=== PATIENT | female | born 1945 | race Caucasian/White ===

== ENCOUNTER → 2016-11-14 | Day surgery (SDC) | payer BC ==
[2016-11-08 12:44] VITALS: Ht 165.1 cm; Wt 79.5 kg
[~2016-11-14] VITALS: Ht 165.1 cm; Wt 79.5 kg
[~2016-11-14] MED LIST: ALBU18002 INH; ALPR1TAB3 PO; ATROPINE SULFATE 0.1 MG/ML 5ML SYR IV PRN; BUPR-79 PO; EFFSR/75 PO; EFFSR150 PO; ESTR0.5T3 PO; EpHEDrine SULFATE INJ 50 MG/ML AMP IV PRN; FLUT1SPR12 NAE; IMP/50 PO; LEVO50TA6 PO; LIDOCAINE HCL 2% 2 ML VIAL (20MG/ML) ONE; LZL/125 PO; MISCCAP80 PO; MOME220A INH; MULT-506 PO; PRLSR20 PO; PROPOFOL IV EMULSION 10 MG/ML 20 ML VIAL IV ONE; RANI300T2 PO; SODIUM CHLORIDE 0.9% 500ML 500 ML IV ONE
--- NOTE | 2016-11-14 11:58 | Endo History and Physical ---
History & Physical Date of Service: Nov 14, 2016. Chief Complaint: Tubular adenoma, family hx colon ca (mother) Referring Physician: Balta Drew History of Present Illness 71 yo CF who presents for colonoscopy secondary to history of colon polyps and family history of colon cancer. Past Medical History Endocrine Disorder, Gastrointestinal Disorder, Anxiety, High Cholesterol, Heart Disease, Hypertension, COPD, Thyroid Disease, Depression Past Surgical History Hx Cardiac Surgery: No Hx Internal Defibrillator: No Hx Pacemaker: No Hx Abdominal Surgery: Yes (TUBAL LIGATION, IAN, D&C, JARRED, OVARIAN CYST REMOVED) Hx of Implantable Prosthesis: No Hx Post-Op Nausea and Vomiting: No Hx Cancer Surgery: No Hx Thoracic Surgery: No Hx Orthopedic: No Hx Urinary Tract Surgery: No Family History Colon CA Social History Smoking Status: Former Smoker Hx Substance Use: No Hx Alcohol Use: No Allergies Coded Allergies: Amoxicillin (Verified Adverse Reaction, Mild, YEAST INFECTIONS, 11/08/16) Levofloxacin (Verified Adverse Reaction, Mild, NERVOUS, 11/08/16) Current Medications Reported Home Medications Medications Dose Route/Sig Max Daily Dose Days Date Category Probiotic (Probiotic Product) 1 Cap Cap 1 Cap PO QAM 11/08/16 Reported Proair Respiclick (Albuterol Sulfate) 108 Mcg/Act Aer 2 Puff INH QID PRN 11/08/16 Reported Asmanex Twisthaler 120 Me (Mometasone Furoate (Inhalation) 220 Mcg/Inh Aer 1 Puff INH BID 11/08/16 Reported Flonase Allergy Relief Ch (Fluticasone Propionate (Nasal)) 50 Mcg/Act Spr 2 [place] SANTY DAILY PRN 11/08/16 Reported Multivitamin (Multivitamins) Tab 1 Tab PO QAM 11/08/16 Reported Wellbutrin Sr (Bupropion HCl) 150 Mg Ertab 150 Mg PO QAM 11/08/16 Reported Prilosec (Omeprazole) 20 Mg Capcr 20 Mg PO QAM 11/08/16 Reported Zantac (Ranitidine HCl) 300 Mg Tab 300 Mg PO HS 11/08/16 Reported Xanax (Alprazolam) 1 Mg Tab 1-2 Mg PO BID PRN 11/08/16 Reported Tofranil (Imipramine HCl) 50 Mg Tab 3 Tab PO HS 11/08/16 Reported Lozol (Indapamide) 1.25 Mg Tab 1.25 Mg PO QAM 11/08/16 Reported Levothyroxine Sodium 50 Mcg Tab 1 Tab PO QAM 90 11/08/16 Reported Estradiol 0.5 Mg Tab 1 Tab PO HS 30 11/08/16 Reported Venlafaxine HCl ER (Venlafaxine HCl) 75 Mg Capcr 75 Mg PO HS 12/17/13 Reported Effexor Extended Rel * (Venlafaxine HCl) 150 Mg Capcr 150 Mg PO QAM 08/17/11 Reported Vital Signs Weight (Kilograms): 79.55 Height (Feet): 5 Height (Inches): 5 Date Time Temp Pulse Resp B/P (MAP) Pulse Ox O2 Delivery O2 Flow Rate FiO2 11/14/16 10:55 36.4 73 18 159/65 (96) 96 Room Air Physical Exam General Appearance: WD/WN, no apparent distress Respiratory/Chest: Auscultation: breath sounds normal Cardiovascular: Heart Auscultation: RRR Abdomen: Bowel Sounds: normal Inspection & Palpation: soft, non-distended, no tenderness, guarding & rebound Assessment and Plan Assessment: 71 yo CF who presents for colonoscopy secondary to history of colon polyps and family history of colon cancer. Plan: Proceed with colonoscopy.
--- NOTE | 2016-11-14 12:44 | Discharge Instructions ---
Endoscopy Patient Instructions Date / Procedure(s) Performed Nov 14, 2016. Colonoscopy Allergy Information Coded Allergies: Amoxicillin (Verified Adverse Reaction, Mild, YEAST INFECTIONS, 11/08/16) Levofloxacin (Verified Adverse Reaction, Mild, NERVOUS, 11/08/16) Discharge Date / Findings Nov 14, 2016. Colon polyps Internal hemorrhoids Medication Instructions OK to resume all medications today as prescribed Medications Dose Route/Sig Max Daily Dose Days Date Category Probiotic (Probiotic Product) 1 Cap Cap 1 Cap PO QAM 11/08/16 Reported Proair Respiclick (Albuterol Sulfate) 108 Mcg/Act Aer 2 Puff INH QID PRN 11/08/16 Reported Asmanex Twisthaler 120 Me (Mometasone Furoate (Inhalation) 220 Mcg/Inh Aer 1 Puff INH BID 11/08/16 Reported Flonase Allergy Relief Ch (Fluticasone Propionate (Nasal)) 50 Mcg/Act Spr 2 [place] SANTY DAILY PRN 11/08/16 Reported Multivitamin (Multivitamins) Tab 1 Tab PO QAM 11/08/16 Reported Wellbutrin Sr (Bupropion HCl) 150 Mg Ertab 150 Mg PO QAM 11/08/16 Reported Prilosec (Omeprazole) 20 Mg Capcr 20 Mg PO QAM 11/08/16 Reported Zantac (Ranitidine HCl) 300 Mg Tab 300 Mg PO HS 11/08/16 Reported Xanax (Alprazolam) 1 Mg Tab 1-2 Mg PO BID PRN 11/08/16 Reported Tofranil (Imipramine HCl) 50 Mg Tab 3 Tab PO HS 11/08/16 Reported Lozol (Indapamide) 1.25 Mg Tab 1.25 Mg PO QAM 11/08/16 Reported Levothyroxine Sodium 50 Mcg Tab 1 Tab PO QAM 90 11/08/16 Reported Estradiol 0.5 Mg Tab 1 Tab PO HS 30 11/08/16 Reported Venlafaxine HCl ER (Venlafaxine HCl) 75 Mg Capcr 75 Mg PO HS 12/17/13 Reported Effexor Extended Rel * (Venlafaxine HCl) 150 Mg Capcr 150 Mg PO QAM 08/17/11 Reported Provider Instructions Activity Restrictions - No exercising or heavy lifting for 24 hours. - Do not drink alcohol the day of the procedure. - Do not drive a car or operate machinery until the day after the procedure. - Do not make any important decisions or sign important papers in 24 hours after the procedure. Following Day: - Return to full activity which may include returning to work/school. Diet Start your diet with liquids and light foods (jello, soup, juice, toast). Then eat your usual diet if not nauseated. Treatment For Common After Affects For mild abdominal pain, bloating, or excessive gas: - Rest - Eat lightly - Lie on right side Follow-Up Information Follow-up with Balta Drew as scheduled Anesthesia Information What You Should Know You have had a procedure that required some medicine to reduce anxiety and discomfort. This treatment is called moderate sedation. After receiving the treatment, you may be sleepy, but you will be able to breathe on your own. The effects of the treatment may last for several hours. Follow these instructions along with Activity/Diet recommendations noted above: * Do NOT do anything where dizziness or clumsiness would be dangerous. * Rest quietly at home today, then you can be up and about tomorrow. * Have a responsible person stay with you the rest of today. * You may have had an I.V. today. If so, you may take the dressing off later today. Recommendations Call your doctor if: * Trouble breathing * Continuous vomiting for more than 24 hours * Temperature above 101 degrees * Severe abdominal pain or bloating * Pain not relieved by pain medicine ordered * There is increased drainage or redness from any incision * A large amount of rectal bleeding greater than 2-3 tablespoons. (If you had a polyp/s removed or have hemorrhoids, a small amount of blood - from the rectum is to be expected.) * You have any unanswered questions or concerns. IN THE EVENT OF A SERIOUS EMERGENCY, GO TO THE NEAREST EMERGENCY ROOM Your discharge instructions were prepared by provider Jared Levy. Patient Instructions Signature Page Keira Sweeney Patient (or Guardian) Signature/Date: I have read and understand the instructions given to me by my caregivers. Caregiver/RN/Doctor Signature/Date: The above-named patient and/or guardian has received patient instructions on this date. + Original Patient Signature Page (only) stays with chart. Please make copy for patient.
--- NOTE | 2016-11-14 12:50 | GI REPORT ---
Procedure Date: 11/14/2016 12:13 PM Procedure: Colonoscopy Indications: High risk colon cancer surveillance: Personal history of colonic polyps, Family history of colon cancer in a first-degree relative Medicines: Monitored Anesthesia Care Complications: No immediate complications. Estimated Blood Loss: Estimated blood loss: none. Procedure: Pre-Anesthesia Assessment: - Prior to the procedure, a History and Physical was performed, and patient medications and allergies were reviewed. The patient's tolerance of previous anesthesia was also reviewed. The risks and benefits of the procedure and the sedation options and risks were discussed with the patient. All questions were answered, and informed consent was obtained. Prior Anticoagulants: The patient has taken no previous anticoagulant or antiplatelet agents. ASA Grade Assessment: IV - A patient with severe systemic disease that is a constant threat to life. After reviewing the risks and benefits, the patient was deemed in satisfactory condition to undergo the procedure. After I obtained informed consent, the scope was passed under direct vision. Throughout the procedure, the patient's blood pressure, pulse, and oxygen saturations were monitored continuously. The Scope was introduced through the anus and advanced to the terminal ileum. The colonoscopy was performed without difficulty. The patient tolerated the procedure well. The quality of the bowel preparation was good. The terminal ileum, ileocecal valve, appendiceal orifice, and rectum were photographed. Findings: Four sessile polyps were found in the sigmoid colon. The polyps were 4 to 6 mm in size. These polyps were removed with a hot snare. Resection and retrieval were complete. Non-bleeding internal hemorrhoids were found during retroflexion. The hemorrhoids were small. Impression: - Four 4 to 6 mm polyps in the sigmoid colon, removed with a hot snare. Resected and retrieved. - Non-bleeding internal hemorrhoids. Recommendation: - Resume previous diet. - Continue present medications. - Repeat colonoscopy for surveillance based on pathology results. - Return to primary care physician as previously scheduled. Jared Levy, 11/14/2016 12:49:34 PM This report has been signed electronically. Note Initiated On: 11/14/2016 12:13 PM I attest to the content of the Intraoperative Record and orders documented therein, exceptions below
--- NOTE | 2016-11-14 13:04 | Anesthesiology Progress Note ---
Anesthesia Post Op Note Date & Time Nov 14, 2016 at 13:04 Vital Signs Vital Signs Past 12 Hours Date Time Temp Pulse Resp B/P (MAP) Pulse Ox O2 Delivery O2 Flow Rate FiO2 11/14/16 13:02 69 18 120/51 (74) 99 Room Air 11/14/16 12:49 36.4 71 18 120/49 (72) 98 Room Air 11/14/16 10:55 36.4 73 18 159/65 (96) 96 Room Air Notes Mental Status: alert / awake / arousable, participated in evaluation Pt Amnestic to Procedure: Yes Nausea / Vomiting: adequately controlled Pain: adequately controlled Airway Patency, RR, SpO2: stable & adequate BP & HR: stable & adequate Hydration State: stable & adequate Anesthetic Complications: no major complications apparent
[2016-11-14 13:18] VITALS: BP 123/54; PULSE 71; O2SAT 99
== END | disposition home or self-care (01) ==
LOC: C.GI 10:12
PROVIDERS: ATTEND Internal Medicine
DX: Z12.11 Encounter for screening for malignant neoplasm of colon (principal); D12.5 Benign neoplasm of sigmoid colon; K64.8 Other hemorrhoids; Z86.010 Personal history of colon polyps; Z80.0 Family history of malignant neoplasm of digestive organs; I10 Essential (primary) hypertension; E78.00 Pure hypercholesterolemia, unspecified; J44.9 Chronic obstructive pulmonary disease, unspecified; E07.9 Disorder of thyroid, unspecified; E34.9 Endocrine disorder, unspecified; F41.9 Anxiety disorder, unspecified; F32.9 Major depressive disorder, single episode, unspecified; Z87.891 Personal history of nicotine dependence; Z79.899 Other long term (current) drug therapy

== ENCOUNTER → 2016-12-18 | Outpatient (CLI) | payer BC ==
[~2016-12-18] MED LIST changes: -ATROPINE SULFATE 0.1 MG/ML 5ML SYR IV PRN; -EpHEDrine SULFATE INJ 50 MG/ML AMP IV PRN; -LIDOCAINE HCL 2% 2 ML VIAL (20MG/ML) ONE; -PROPOFOL IV EMULSION 10 MG/ML 20 ML VIAL IV ONE; -SODIUM CHLORIDE 0.9% 500ML 500 ML IV ONE
[2016-12-18 16:21] LABS: THYROID STIMULATING HORMONE 1.92 uIu/ml (0.300-4.500)
== END | disposition home or self-care (01) ==
LOC: C.LAB1850 14:51
PROVIDERS: ATTEND Physician Assistant
DX: E03.9 Hypothyroidism, unspecified (principal)

== ENCOUNTER → 2017-02-07 | Outpatient (CLI) | payer BC ==
--- NOTE | 2017-02-07 14:22 | MAMMOGRAPHY REPORT ---
BILATERAL DIGITAL DIAGNOSTIC MAMMOGRAM TOMOSYNTHESIS WITH CAD AND TARGETED BILATERAL ULTRASOUND: 02/07 CLINICAL HISTORY: The patient reports diffuse pain in bilateral breasts for approximately 3-4 months, most prominent in her left inferior breast. She only notes the pain when lying down on her stomach. She denies any palpable lumps or other complaints. TECHNIQUE: Breast tomosynthesis in addition to standard 2D mammography was performed. Current study was also evaluated with a Computer Aided Detection (CAD) system. Bilateral CC and MLO 2-D and tomosy nthesis images were obtained. COMPARISON: Comparison is made to exams dated: 05/05/2013 aspiration, 04/16/2013 mammogram, 3 ultrasound, 03/27/2013 mammogram, 02/21/2012 mammogram, and 12/30/2010 mammogram - [facility]. BREAST COMPOSITION: There are scattered areas of fibroglandular density in both breasts. FINDINGS: There is an oval circumscribed 14 mm mass in the right 6:00 breast. Additionally, there i s an asymmetry in the right upper outer quadrant, which may represent normal fibroglandular tissue al though ultrasound was performed. The remainder of both breasts are stable compared to prior exams, w ithout suspicious masses, calcifications, or areas of architectural distortion noted. A biopsy marke r clip is again noted within the left upper outer quadrant. Targeted ultrasound was performed of the areas of the right breast mass and right breast asymmetry. In the right breast at 7:00, 4 cm from the nipple, there is an oval circumscribed anechoic mass with a thin internal septation, measuring 7 x 7 x 11 mm. This corresponds with the mammographic mass and is consistent with a benign cyst. No mass or other suspicious abnormality is seen in the region of t he asymmetry in the right upper outer quadrant; given the lack of sonographic abnormality, the asymme try is felt to represent normal fibroglandular tissue. Targeted ultrasound was also performed of the area of most prominent pain pointed out by the patient, involving the left lower outer quadrant. Sonographically normal tissue is seen in this region, with out evidence of a mass or other suspicious sonographic abnormality. IMPRESSION: ACR BI-RADS CATEGORY 2: BENIGN, TARGETED ULTRASOUND ACR BI-RADS CATEGORY 2: BENIGN No suspicious mammographic or sonographic abnormality to account for intermittent left breast pain. Incidental benign 11 mm cyst in the right 7:00 breast. There is no mammographic or targeted sonograp hic evidence of malignancy. Recommend clinical follow-up for breast pain, and recommend routine bila teral screening mammograms in one year. The patient has been verbally notified of the results. Approximately 10% of breast cancers are not detected with mammography. A negative mammographic report should not delay biopsy if a clinically suggestive mass is present. Liset Guillory M.D. ah/:02/07/2017 11:05:[address] [employer] [employer] [address]: Nel Erwin RT(R)(M), [facility] letter sent: Normal 1/2 BI-RADS Code: ACR BI-RADS Category 2: Benign Ultrasound BI-RADS: ACR BI-RADS Category 2: Benign
== END | disposition home or self-care (01) ==
LOC: C.MAMM 10:09
PROVIDERS: ATTEND Physician Assistant
DX: N64.4 Mastodynia (principal)

== ENCOUNTER → 2017-05-17 | Outpatient (CLI) | payer BC ==
[~2017-05-17] MED LIST changes: +VENL150T33 PO
== END | disposition home or self-care (01) ==
LOC: C.PAPS 09:15
PROVIDERS: ATTEND Obstetrics & Gynecology
DX: N89.0 Mild vaginal dysplasia (principal)

== ENCOUNTER → 2017-05-25 | Outpatient (CLI) | payer BC ==
--- NOTE | 2017-05-25 13:48 | DIAGNOSTIC IMAGING REPORT ---
HEAD WITHOUT CONTRAST (CT) CLINICAL HISTORY: 71 years-old Female presenting with R42 Dizziness, dizziness and fall [id number]. TECHNIQUE: Multidetector CT imaging of the head was performed without the use of intravenous contrast. IV contrast: None. A dose lowering technique was used consistent with the principles of ALARA (as low as reasonably achievable). COMPARISON: 12/01/2013. CT DOSE (mGy.cm): The estimated cumulative dose is 537.48 mGy.cm. FINDINGS: Lithographic Platemaker topogram: Unremarkable. Ventricles and sulci normal in size. Brain parenchyma normal in appearance with preserved landrum-white differentiation. No mass effect or midline shift. No hemorrhage or acute territorial infarct. No extra-axial fluid collection. Paranasal sinuses and mastoid air cells clear. Calvarium intact. IMPRESSION: 1. No acute intracranial abnormality. Electronically signed by: Alan Dozier M.D. 05/25/2017 1:47 PM Dictated Date/Time: 05/25/2017 1:43 PM
== END | disposition home or self-care (01) ==
LOC: C.CTS 13:28
PROVIDERS: ATTEND Internal Medicine
DX: R42 Dizziness and giddiness (principal)

== ENCOUNTER → 2017-06-15 | Outpatient (CLI) | payer BC ==
[~2017-06-15] MED LIST changes: -VENL150T33 PO
== END | disposition home or self-care (01) ==
LOC: C.PATHSPEC 17:17
PROVIDERS: ATTEND Obstetrics & Gynecology
DX: L91.8 Other hypertrophic disorders of the skin (principal); L81.9 Disorder of pigmentation, unspecified

== ENCOUNTER → 2017-07-23 | Outpatient (CLI) | payer BC ==
[2017-07-23 14:55] LABS: AST/SGOT 15 U/L (15-37); BLOOD UREA NITROGEN 12 mg/dl (7-18); CALCIUM 8.8 mg/dl (8.5-10.1); CARBON DIOXIDE 31 mmol/L (21-32); CREATININE 0.97 mg/dl (0.60-1.20); GLUCOSE 80 mg/dl (70-99); POTASSIUM 3.6 mmol/L (3.5-5.1); SODIUM 140 mmol/L (136-145)
[2017-07-23 15:06] LABS: ALT/SGPT 20 U/L (12-78); CHOLESTEROL 207 mg/dl (0-200); LDL CHOLESTEROL CALCULATED 129 mg/dl
== END | disposition home or self-care (01) ==
LOC: C.LAB1850 12:16
PROVIDERS: ATTEND Internal Medicine
DX: E78.5 Hyperlipidemia, unspecified (principal); E03.9 Hypothyroidism, unspecified; E83.42 Hypomagnesemia

== ENCOUNTER 2020-08-02 23:02 | Observation (INO) ==
[2020-08-02] MEDS ORDERED: OPTIRAY 320 125ml IV ONE (23:09)
--- NOTE | 2020-08-02 23:58 | Emergency Department Note ---
History of Present Illness General Chief complaint: Stroke Alert Stated complaint: SLURRED SPEECH Time Seen by Provider: 08/02/20 23:01 History of Present Illness Provider complaint: Slurred speech difficulty walking Onset (ago): hour(s) (2.5) Location: head Quality: + aching Associated symptoms: + headaches 74-year-old female on Eliquis presents emergency department via EMS for code stroke. Per EMS, the patient started having sudden onset at 1830 of difficulty walking and slurred speech. The patient is on Eliquis. The patient does report having multiple falls over the last few weeks. Patient is reporting a headache over the front of her head. No chest pain or difficulty breathing. No nausea or vomiting. No changes in vision. Home Medications Medication Instructions Recorded Confirmed Type Probiotic 1 cap PO QAM #0 11/08/16 08/02/20 History fluticasone propionate [Flonase 2 spray SANTY DAILY PRN #0 11/08/16 08/02/20 History Allergy Relief] multivitamin 1 tab PO QAM #0 tab 11/08/16 08/02/20 History umeclidinium 62.5 mcg-vilanterol 1 puffs INH Q24H 90 Days #60 ea 07/03/19 08/02/20 Rx 25 mcg/actuation powdr for inhalation venlafaxine 75 mg capsule,extended 75 mg PO HS #90 cap 09/22/19 08/02/20 Rx release 24 hr famotidine 40 mg tablet 40 mg PO HS #90 tab 03/10/20 08/02/20 Rx imipramine HCl 50 mg tablet 150 mg PO HS #270 tab 03/10/20 08/02/20 Rx pantoprazole 40 mg PO QAM 05/02/20 08/02/20 History estradiol 0.5 mg tablet 0.5 mg PO DAILY #90 tab 06/09/20 08/02/20 Rx albuterol sulfate 90 mcg/actuation 1 - 2 puff INH Q4H PRN #3 ea 06/14/20 08/02/20 Rx aerosol inhaler alprazolam 1 mg tablet 1 - 2 mg PO BID PRN #270 tab 06/14/20 08/02/20 Rx azelastine 137 mcg (0.1 %) nasal 2 spray INTNAS BID #3 ea 06/14/20 08/02/20 Rx spray aerosol bupropion HCl 150 mg 24 hr tablet, 150 mg PO QAM #90 tab 06/14/20 08/02/20 Rx extended release indapamide 1.25 mg tablet 1.25 mg PO QAM #90 tab 06/14/20 08/02/20 Rx levothyroxine 50 mcg tablet 50 mcg PO QAM #90 tab 06/14/20 08/02/20 Rx venlafaxine 150 mg 150 mg PO QAM #90 cap 06/14/20 08/02/20 Rx capsule,extended release 24 hr potassium chloride 8 mEq 8 meq PO DAILY #30 tab 07/28/20 08/02/20 Rx tablet,extended release apixaban 5 mg tablet 5 mg PO BID #180 tab 07/29/20 08/02/20 Rx Allergies Allergy/AdvReac Type Severity Reaction Status Date / Time adhesive tape AdvReac Mild Rash Verified 08/02/20 23:30 amoxicillin AdvReac Mild YEAST Verified 08/02/20 23:30 INFECTIONS levofloxacin AdvReac Mild NERVOUS Verified 08/02/20 23:30 Past Med/Surg History Medical History Abnormal chest CT bl pulmonary lesions - "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 Sotomayor monitoring Acquired deviated nasal septum Cardiac murmur pt could not confirm - does not follow w/ cardio Chronic obstructive pulmonary disease Chronic rhinitis Depression Dyslipidemia Former smoker Generalized anxiety disorder Generalized osteoarthritis of multiple sites GERD (gastroesophageal reflux disease) Hearing deficit L EAR Hiatal hernia Hypertension Hypothyroidism Internal hemorrhoids Knee pain, left Laryngopharyngeal reflux Lumbar radiculopathy Multiple lipomas Multiple pulmonary nodules Nontoxic multinodular goiter Osteoarthritis Poor historian Tricuspid regurgitation Tubular adenoma of colon VAIN (vaginal intraepithelial neoplasia) remote, 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 Surgical History H/O removal of cyst R ARM History of arthroscopy KNEE-UNSURE WHICH ONE History of breast biopsy R BREAST-BENIGN History of cataract surgery RT/LT History of cholecystectomy History of colonoscopy History of dilatation and curettage History of esophagogastroduodenoscopy (EGD) w/ dilation History of eye surgery Left History of oral surgery History of thyroidectomy, subtotal L SIDE History of tonsillectomy History of tooth extraction History of total abdominal hysterectomy and bilateral salpingo-oophorectomy History of tubal ligation S/P excision of lipoma (08/08/19) Bilateral Arm Lipomas Excision (x7)(Bilateral) Dr. Asencio 08-08-19 Family History Grandmother Family history of diabetes mellitus MATERNAL Mother Family hx of colon cancer Colorectal cancer Father Coronary heart disease Daughter Slow to wake up after anesthesia Denies family history of Ovarian cancer Prostate cancer Myocardial infarction Breast cancer Social History Smoking Status: Former smoker Tobacco Type: Cigarettes Second Hand Exposure: Yes; Hx Alcohol Use: No Hx Substance Use: No Preferred Language: Frisian Communication Ability: Effective Propeller Engineer Required: No Beliefs That Will Affect Care: Muslim Muslim Beliefs: SHINTO Current Living Situation: Family Current Living Situation Comment: LIVES WITH DAUGHTER current occupational status: retired Feels Safe at Home: Yes Dental Care, Regularly: Yes Physical Activity Frequency: Does not Exercise Seatbelt Use: always Sunscreen Use: No Assistive Devices: Glasses Review of Systems A total of 10 systems reviewed and were otherwise negative Physical Exam Vital Signs Vital Signs - 24 hr 08/02/20 23:01 08/02/20 23:44 Temperature 36.9 C Temperature Source Oral Pulse Rate 73 Pulse Rhythm Regular Pulse Strength Normal Respiratory Rate 17 Respiratory Effort / Characteristics Non-Labored Spontaneous Respiratory Depth Normal Respiratory Pattern Regular Blood Pressure 178/65 H Blood Pressure Mean 102 Blood Pressure Position Lying Pulse Oximetry 94 Oxygen Delivery Method Room Air Room Air Sepsis Recent Fever Within 48 Hours No Sepsis New/Unexplained Change in Mental Status Yes Sepsis Action Taken by Nursing No Action Required Physical Exam GENERAL: She is oriented to person, place, and time. She appears well-developed and well-nourished. She does not appear distressed. HENT: Exam performed. -Head: Normocephalic and atraumatic. -Right Ear: External ear normal. No mastoid tenderness. -Left Ear: External ear normal. No mastoid tenderness. -Mouth/Throat: The oropharynx is clear and moist. No trismus in the jaw. No dental abscesses or uvula swelling. No oropharyngeal exudate or tonsillar abscesses. EYES: Conjunctivae and EOM are normal. Pupils are equal, round, and reactive to light. Right eye exhibits no discharge. Left eye exhibits no discharge. No scleral icterus. NECK: Normal range of motion. Neck supple. No JVD present. No spinous process tenderness present. No carotid bruit present. No rigidity. No tracheal deviation and normal range of motion present. No Brudzinski's sign and no Kernig's sign noted. CV: Normal rate, regular rhythm, normal heart sounds and intact distal pulses. There is no peripheral edema. Palpable radial pulses bue. PULM/CHEST: Effort normal and breath sounds normal. No respiratory distress. No stridor. She has no wheezes. She has no rales. -Chest Wall: She exhibits no tenderness. ABD: The abdomen is soft. Bowel sounds are normal. She has no distension. No mass is present. There is no tenderness. There is no rebound, no guarding, no Corey's sign and no tenderness at McBurney's point. Rovsig negative MUSC/SKEL: Normal range of motion. There is no peripheral edema, tenderness or deformity. LYMPH: No cervical adenopathy. NEURO:NIHSS: 0 SKIN: Skin is warm and dry. She is not diaphoretic. PSYCH: She has a normal mood and affect. Behavior is normal. Judgment and thought content normal. Course Course Patient [id number]: Call from EMS. Code stroke activated. 2301: Patient was taken straight to CT scan on arrival in the emergency department. CT viewed by me showed no large ICH. The patient was evaluated in room B1. A complete history and physical exam was performed Cardiac monitoring: An order was placed for continuous cardiac monitoring. The monitor shows a rate of 70 with sinus rhythm 2343: Spoke with Dr. Whitlock from [place] [facility]. She states that there is no need for her to evaluate the patient as the patient is on Eliquis and her NIH stroke scale is still low, patient is not a TPA candidate. She does recommend that the patient be admitted to the hospital for MRI and echo. 0042: Vital signs stable. Patient was becoming increasingly agitated and belligerent towards staff in the emergency department. Ativan 1 mg was ordered for the patient. Labs and imaging are within normal limits. Admitted for TIA. Dr. Kaila burnette any hospitalist has been notified. Administered Medications Discontinued Medications Lorazepam (Ativan) 0.5 mg in 1 mls @ 1 mls/min IV NOW STA Stop: 08/03/20 00:01 Last Admin: 08/03/20 00:20 Dose: Not Given Documented by: [id number] Lorazepam (Ativan) 1 mg in 2 mls @ 2 mls/min IV NOW STA Stop: 08/03/20 00:07 Last Admin: 08/03/20 00:19 Dose: 2 mls/min Documented by: [id number] Ioversol (Optiray 320 125ml) 117 ml IV ONCE ONE Stop: 08/02/20 23:10 Last Admin: 08/02/20 23:09 Dose: 117 ml Documented by: [id number] Medical Decision Making Laboratory Data Result diagrams: 08/02/20 23:44 08/02/20 23:44 Lab Results 08/02/20 08/02/20 08/02/20 Range/Units 23:35 23:44 23:44 WBC 8.25 (4.8-10.8) K/uL RBC 4.07 L (4.2-5.4) M/uL Hgb 11.7 L (12.0-16.0) g/dL Hct 36.5 L (37-47) % MCV 89.7 (80-100) fL MCH 28.7 (25-34) pg MCHC 32.1 (32-36) g/dL RDW Std Deviation 45.7 (36.4-46.3) fL RDW Coeff of Azam 13.8 (11.5-14.5) % Plt Count 277 (130-400) K/uL MPV 8.9 (7.4-10.4) fL Immature Gran % (Auto) 0.1 % Neut % (Auto) 62.4 % Lymph % (Auto) 25.3 % Real % (Auto) 10.4 % Eos % (Auto) 1.6 % Baso % (Auto) 0.2 % Neut # (Auto) 5.14 (1.4-6.5) K/uL Lymph # (Auto) 2.09 (1.2-3.4) K/uL Real # (Auto) 0.86 H (0.11-0.59) K/uL Eos # (Auto) 0.13 (0-0.5) K/uL Baso # (Auto) 0.02 (0-0.2) K/uL Immature Gran # (Auto) 0.01 (0.00-0.02) K/uL PT 10.3 (9.0-12.0) Seconds INR 1.0 (0.9-1.1) APTT 25.0 (21.0-31.0) Seconds PTT Ratio 1.0 Sodium (136-145) mmol/L Potassium (3.5-5.1) mmol/L Chloride (98-107) mmol/L Carbon Dioxide (21-32) mmol/L Anion Gap (3-11) BUN (7-18) mg/dl Creatinine (0.6-1.2) mg/dl Est Cr Clr Drug Dosing ml/min Est GFR ( Amer) Est GFR (Non-Af Amer) BUN/Creatinine Ratio (10-20) Glucose (70-99) mg/dl POC Glucose 124 H (70-99) mg/dl Calcium (8.5-10.1) mg/dl Magnesium (1.8-2.4) mg/dl Total Bilirubin (0.2-1) mg/dl AST (15-37) U/L ALT (12-78) U/L Alkaline Phosphatase (45-117) U/L Ammonia (11-32) umol/L Troponin I (0-0.045) ng/ml Total Protein (6.4-8.2) gm/dl Albumin (3.4-5.0) gm/dl Globulin (2.5-4.0) gm/dl Albumin/Globulin Ratio (0.9-2) Ethyl Alcohol mg/dL (0-3) mg/dl 08/02/20 08/02/20 08/02/20 Range/Units 23:44 23:45 23:45 WBC (4.8-10.8) K/uL RBC (4.2-5.4) M/uL Hgb (12.0-16.0) g/dL Hct (37-47) % MCV (80-100) fL MCH (25-34) pg MCHC (32-36) g/dL RDW Std Deviation (36.4-46.3) fL RDW Coeff of Azam (11.5-14.5) % Plt Count (130-400) K/uL MPV (7.4-10.4) fL Immature Gran % (Auto) % Neut % (Auto) % Lymph % (Auto) % Real % (Auto) % Eos % (Auto) % Baso % (Auto) % Neut # (Auto) (1.4-6.5) K/uL Lymph # (Auto) (1.2-3.4) K/uL Real # (Auto) (0.11-0.59) K/uL Eos # (Auto) (0-0.5) K/uL Baso # (Auto) (0-0.2) K/uL Immature Gran # (Auto) (0.00-0.02) K/uL PT (9.0-12.0) Seconds INR (0.9-1.1) APTT (21.0-31.0) Seconds PTT Ratio Sodium 137 (136-145) mmol/L Potassium 3.3 L (3.5-5.1) mmol/L Chloride 103 (98-107) mmol/L Carbon Dioxide 30 (21-32) mmol/L Anion Gap 4.0 (3-11) BUN 15 (7-18) mg/dl Creatinine 0.94 (0.6-1.2) mg/dl Est Cr Clr Drug Dosing 58.1 ml/min Est GFR ( Amer) 70.2 Est GFR (Non-Af Amer) 60.6 BUN/Creatinine Ratio 16.4 (10-20) Glucose 101 H (70-99) mg/dl POC Glucose (70-99) mg/dl Calcium 8.7 (8.5-10.1) mg/dl Magnesium 1.9 (1.8-2.4) mg/dl Total Bilirubin 0.2 (0.2-1) mg/dl AST 11 L (15-37) U/L ALT 18 (12-78) U/L Alkaline Phosphatase 73 (45-117) U/L Ammonia < 10.0 L (11-32) umol/L Troponin I < 0.015 (0-0.045) ng/ml Total Protein 6.1 L (6.4-8.2) gm/dl Albumin 2.9 L (3.4-5.0) gm/dl Globulin 3.2 (2.5-4.0) gm/dl Albumin/Globulin Ratio 0.9 (0.9-2) Ethyl Alcohol mg/dL < 3.0 (0-3) mg/dl Imaging Data Radiologist's Impression: Preliminary Findings Only See Final Report For Complete Findings CTA HEAD: Impression: No large vessel occlusion. 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 Radiologist: Jared Arriaga MD Study ready at 23:39 and initial results transmitted at 23:50 Communications: Clear Time Type Notes Call Doctor Stroke Preliminary Findings Only See Final Report For Complete Findings CTA NECK: Impression: Atherosclerosis of the left carotid bifurcation with 50-69% stenosis of the proximal left internal carotid artery. Atherosclerosis of the right carotid bifurcation with without hemodynamically significant stenosis. The vertebral arteries are patent. Radiologist: Jared Arriaga MD Study ready at 23:45 and initial results transmitted at 23:55 Communications: Clear Time Type Notes Call Doctor Stroke Preliminary Findings Only See Final Report For Complete Findings CT HEAD: Impression: No acute intracranial hemorrhage or evidence of large territorial infarction. Small bilateral frontal convexity subdural hygroma versus chronic subdural hematomas. No calvarium or skull base fracture. No hydrocephalus. Radiologist: Jared Arriaga MD Study ready at 23:32 and initial results transmitted at 23:36 Communications: Clear Time Type Notes 08/02/20 23:43 Call Doctor Regarding Stroke, called Dr. Cheatham on 08/02 23:43 (- 05:00) Preliminary Findings Only See Final Report For Complete Findings CT C SPINE: Impression: No fracture or traumatic malalignment of the cervical spine. Degenerative changes seen in the cervical spine, most significant at C5-C6 and C6-C7. No high-grade spinal canal stenosis. Radiologist: Jared Arriaga MD Study ready at 23:41 and initial results transmitted at 00:05 ECG Data Indication: + altered mental status Rate (beats per minute): 73 Rhythm: + normal sinus ECG Intervals/blocks: + Normal QRS, + Normal ME and + Normal QT-c ECG ST segments: + Normal ST segments [facility] Narrative Patient [id number]: Call from EMS. Code stroke activated. 2301: Patient was taken straight to CT scan on arrival in the emergency department. CT viewed by me showed no large ICH. The patient was evaluated in room B1. A complete history and physical exam was performed Cardiac monitoring: An order was placed for continuous cardiac monitoring. The monitor shows a rate of 70 with sinus rhythm 2343: Spoke with Dr. Whitlock from [place] [facility]. She states that there is no need for her to evaluate the patient as the patient is on Eliquis and her NIH stroke scale is still low, patient is not a TPA candidate. She does recommend that the patient be admitted to the hospital for MRI and echo. 0042: Vital signs stable. Patient was becoming increasingly agitated and belligerent towards staff in the emergency department. Ativan 1 mg was ordered for the patient. Labs and imaging are within normal limits. Admitted for TIA. Dr. Kaila burnette any hospitalist has been notified. Impression & Plan TIA (transient ischemic attack) Discharge Plan Visit Data Chief Complaint: Stroke Alert Stated Complaint: SLURRED SPEECH ED Provider: Alpesh Cheatham Discharge Problem: TIA (transient ischemic attack) Patient Disposition: Being Evaluated by Hospitalist Forms Stand Alone Forms: [facility] Prescriptions Prescriptions: No Action multivitamin Tablet 1 tab PO QAM Qty: 0 RF: 0 fluticasone propionate [Flonase Allergy Relief] 50 mcg/actuation Man,Suspension 2 spray SANTY DAILY PRN (Reason: Nasal Congestion) Qty: 0 RF: 0 Probiotic 5 billion cell Capsule, Sprinkle 1 cap PO QAM Qty: 0 RF: 0 Anoro Ellipta 62.5-25 mcg/actuation blister with device 1 puffs INH Q24H 90 Days Qty: 60 RF: 3 venlafaxine 75 mg capsule,extended release 24hr 75 mg PO HS Qty: 90 RF: 3 potassium chloride 8 mEq tablet extended release 8 meq PO DAILY Qty: 30 RF: 2 Eliquis 5 mg tablet 5 mg PO BID Qty: 180 RF: 3 imipramine HCl 50 mg tablet 150 mg PO HS Qty: 270 RF: 3 famotidine 40 mg tablet 40 mg PO HS Qty: 90 RF: 3 albuterol sulfate 90 mcg/actuation HFA aerosol inhaler 1 - 2 puff INH Q4H PRN (Reason: SOB) Qty: 3 RF: 1 alprazolam [Xanax] 1 mg tablet 1 - 2 mg PO BID PRN (Reason: anxiety) Qty: 270 RF: 0 azelastine 137 mcg (0.1 %) aerosol,spray 2 spray INTNAS BID Qty: 3 RF: 1 bupropion HCl [Wellbutrin XL] 150 mg tablet extended release 24 hr 150 mg PO QAM Qty: 90 RF: 3 indapamide 1.25 mg tablet 1.25 mg PO QAM Qty: 90 RF: 3 levothyroxine [Synthroid] 50 mcg tablet 50 mcg PO QAM Qty: 90 RF: 3 venlafaxine 150 mg capsule,extended release 24hr 150 mg PO QAM Qty: 90 RF: 1 estradiol 0.5 mg tablet 0.5 mg PO DAILY Qty: 90 RF: 3 pantoprazole 40 mg tablet,delayed release (DR/EC) 40 mg PO QAM RF: 0 Referrals Referrals: Pravin Drew MD [Primary Care Provider] -
[2020-08-03] MEDS ORDERED: LORazepam 0.5 MG/1 ML VIAL IV STA
[2020-08-03 00:01] LABS: Basophils # (auto) 0.02 K/uL (0-0.2); Basophils % (auto) 0.2 %; Eosinophils # (auto) 0.13 K/uL (0-0.5); Eosinophils % (auto) 1.6 %; Hematocrit (blood only) 36.5 % (37-47); Hemoglobin 11.7 g/dL (12.0-16.0); Immature Granulocytes # (auto) 0.01 K/uL (0.00-0.02); Immature Granulocytes % (auto) 0.1 %; Lymphocytes # (auto) 2.09 K/uL (1.2-3.4); Lymphocytes % (auto) 25.3 %; Mean Corpuscular Hemoglobin 28.7 pg (25-34); Mean Corpuscular Hgb Conc 32.1 g/dL (32-36); Mean Corpuscular Volume 89.7 fL (80-100); Mean Platelet Volume 8.9 fL (7.4-10.4); Monocytes # (auto) 0.86 K/uL (0.11-0.59); Monocytes % (auto) 10.4 %; Neutrophils # (auto) 5.14 K/uL (1.4-6.5); Neutrophils % (auto) 62.4 %; Platelet Count 277 K/uL (130-400); RDW Coefficient of Variation 13.8 % (11.5-14.5); RDW Standard Deviation 45.7 fL (36.4-46.3); Red Blood Count 4.07 M/uL (4.2-5.4); White Blood Count 8.25 K/uL (4.8-10.8)
[2020-08-03] MEDS ORDERED: LORazepam 1 MG/2 ML VIAL IV STA (00:06)
[2020-08-03 00:15] LABS: Prothrombin Time 10.3 Seconds (9.0-12.0)
[2020-08-03 00:24] LABS: Alanine Aminotransferase 18 U/L (12-78); Albumin Level 2.9 gm/dl (3.4-5.0); Aspartate Aminotransferase 11 U/L (15-37); BUN Creatinine Ratio 16.4 (10-20); Blood Urea Nitrogen 15 mg/dl (7-18); Calcium 8.7 mg/dl (8.5-10.1); Carbon Dioxide 30 mmol/L (21-32); Chloride 103 mmol/L (98-107); Creatinine Clr Calc Pharmacy 58.1 ml/min; Est GFR (African American) 70.2; Est GFR (Non-African American) 60.6; Glucose 101 mg/dl (70-99); Magnesium 1.9 mg/dl (1.8-2.4); Potassium 3.3 mmol/L (3.5-5.1); Sodium 137 mmol/L (136-145)
[2020-08-03 00:29] LABS: Albumin Globulin Ratio 0.9 (0.9-2); Alkaline Phosphatase 73 U/L (45-117); Bilirubin,Total 0.2 mg/dl (0.2-1); Globulin 3.2 gm/dl (2.5-4.0); Total Protein 6.1 gm/dl (6.4-8.2); Troponin I < 0.015 ng/ml (0-0.045)
--- NOTE | 2020-08-03 02:16 | History & Physical Report ---
Date of Service August 03, 2020 Assessment & Plan (1) TIA (transient ischemic attack): CT head with bilateral subdural hygromas versus chronic subdural hematomas. Reviewed by [facility] neurology, and reportedly thought to not be necessary for further pursuit CTA neck shows proximal left internal carotid artery stenosis 50 to 69% CTA head showed moderate stenoses of basilar artery. Stroke without TPA order set. Consult PT/OT/speech/neurology MRI of brain without contrast ordered and pending Present on Admission?: Yes (2) Schatzki's ring: Schatzki ring/chronic reflux esophagitis- Continue pantoprazole Present on Admission?: Yes (3) Abnormal chest CT: Following with Dr. Sotomayor for concerning pulmonary nodules Present on Admission?: Yes (4) Chronic reflux esophagitis: See above Present on Admission?: Yes (5) Hypothyroidism: Continue levothyroxine Present on Admission?: Yes (6) Depression: Depression/generalized anxiety disorder- Continue usual medications Present on Admission?: Yes (7) Generalized anxiety disorder: Continue usual medications Present on Admission?: Yes (8) Hypertension: Hold indapamide Present on Admission?: Yes (9) Pulmonary embolism: On Eliquis Present on Admission?: Yes History of Present Illness Chief Complaint: The patient presented to the emergency department with initial complaints of difficulty with slurred speech and walking, and was brought to the ED via EMS for a stroke alert Primary Care Provider: Pravin Drew MD The patient is a 74-year-old female with a past medical history including pulmonary embolism, AC joint arthritis, left knee patellar bursitis, SNHL, lung abscess, Schatzki's ring, esophageal dysphagia, vaginal intraepithelial neoplasia stage I, toxic multinodular goiter, chronic reflux esophagitis, hypothyroidism, depression, dyslipidemia, generalized anxiety disorder, hypertension, multiple pulmonary nodules and tricuspid regurgitation. Patient was brought to the emergency department as a stroke alert. Imaging studies included a CT of the head which showed chronic subdural hygroma versus subdural hematoma, reviewed by [facility] neurology as not needing any further work-up or intervention. CTA of neck showed proximal left internal carotid artery stenosis 50-69%. CTA of head showed moderate to severe stenosis of the mid basilar artery. CT of cervical spine showed C5-6, C6-7 degenerative disc disease Allergies Allergy/AdvReac Type Severity Reaction Status Date / Time adhesive tape AdvReac Mild Rash Verified 08/02/20 23:30 amoxicillin AdvReac Mild YEAST Verified 08/02/20 23:30 INFECTIONS levofloxacin AdvReac Mild NERVOUS Verified 08/02/20 23:30 Home Medications Medication Instructions Recorded Confirmed Type Probiotic 1 cap PO QAM #0 11/08/16 08/02/20 History fluticasone propionate [Flonase 2 spray SANTY DAILY PRN #0 11/08/16 08/02/20 History Allergy Relief] multivitamin 1 tab PO QAM #0 tab 11/08/16 08/02/20 History umeclidinium 62.5 mcg-vilanterol 1 puffs INH Q24H 90 Days #60 ea 07/03/19 08/02/20 Rx 25 mcg/actuation powdr for inhalation venlafaxine 75 mg capsule,extended 75 mg PO HS #90 cap 09/22/19 08/02/20 Rx release 24 hr famotidine 40 mg tablet 40 mg PO HS #90 tab 03/10/20 08/02/20 Rx imipramine HCl 50 mg tablet 150 mg PO HS #270 tab 03/10/20 08/02/20 Rx pantoprazole 40 mg PO QAM 05/02/20 08/02/20 History estradiol 0.5 mg tablet 0.5 mg PO DAILY #90 tab 06/09/20 08/02/20 Rx albuterol sulfate 90 mcg/actuation 1 - 2 puff INH Q4H PRN #3 ea 06/14/20 08/02/20 Rx aerosol inhaler alprazolam 1 mg tablet 1 - 2 mg PO BID PRN #270 tab 06/14/20 08/02/20 Rx azelastine 137 mcg (0.1 %) nasal 2 spray INTNAS BID #3 ea 06/14/20 08/02/20 Rx spray aerosol bupropion HCl 150 mg 24 hr tablet, 150 mg PO QAM #90 tab 06/14/20 08/02/20 Rx extended release indapamide 1.25 mg tablet 1.25 mg PO QAM #90 tab 06/14/20 08/02/20 Rx levothyroxine 50 mcg tablet 50 mcg PO QAM #90 tab 06/14/20 08/02/20 Rx venlafaxine 150 mg 150 mg PO QAM #90 cap 06/14/20 08/02/20 Rx capsule,extended release 24 hr potassium chloride 8 mEq 8 meq PO DAILY #30 tab 07/28/20 08/02/20 Rx tablet,extended release apixaban 5 mg tablet 5 mg PO BID #180 tab 07/29/20 08/02/20 Rx Past Med/Surg History Medical History Abnormal chest CT bl pulmonary lesions - "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 Sotomayor monitoring Acquired deviated nasal septum Cardiac murmur pt could not confirm - does not follow w/ cardio Chronic obstructive pulmonary disease Chronic rhinitis Depression Dyslipidemia Former smoker Generalized anxiety disorder Generalized osteoarthritis of multiple sites GERD (gastroesophageal reflux disease) Hearing deficit L EAR Hiatal hernia Hypertension Hypothyroidism Internal hemorrhoids Knee pain, left Laryngopharyngeal reflux Lumbar radiculopathy Multiple lipomas Multiple pulmonary nodules Nontoxic multinodular goiter Osteoarthritis Poor historian Tricuspid regurgitation Tubular adenoma of colon VAIN (vaginal intraepithelial neoplasia) remote, 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 Surgical History H/O removal of cyst R ARM History of arthroscopy KNEE-UNSURE WHICH ONE History of breast biopsy R BREAST-BENIGN History of cataract surgery RT/LT History of cholecystectomy History of colonoscopy History of dilatation and curettage History of esophagogastroduodenoscopy (EGD) w/ dilation History of eye surgery Left History of oral surgery History of thyroidectomy, subtotal L SIDE History of tonsillectomy History of tooth extraction History of total abdominal hysterectomy and bilateral salpingo-oophorectomy History of tubal ligation S/P excision of lipoma (08/08/19) Bilateral Arm Lipomas Excision (x7)(Bilateral) Dr. Asencio 08-08-19 Family History Grandmother Family history of diabetes mellitus MATERNAL Mother Family hx of colon cancer Colorectal cancer Father Coronary heart disease Daughter Slow to wake up after anesthesia Denies family history of Ovarian cancer Prostate cancer Myocardial infarction Breast cancer Social History Smoking Status: Former smoker Tobacco Type: Cigarettes Second Hand Exposure: Yes; Hx Alcohol Use: No Hx Substance Use: No Preferred Language: Croatian Communication Ability: Effective Canvas Baster Jumpbasting Required: No Beliefs That Will Affect Care: None Current Living Situation: Family Current Living Situation Comment: [facility] current occupational status: retired Other Information That Helps Us Care for You: No Feels Safe at Home: Yes Safety Concerns: Feels Safe At This Time Dental Care, Regularly: Yes Physical Activity Frequency: Does not Exercise Seatbelt Use: always Sunscreen Use: No Assistive Devices: Glasses Review of Systems Review of Systems: The patient is confused, and HPI/ROS that she provides is not considered reliable Physical Exam Physical Exam: The patient is confused, normocephalic and atraumatic, lying in bed and in no acute distress. HEENT--PERRL, EOMI, mucous membranes and oropharynx dry. Neck--supple. No JVD. No bruits. Thyroid normal, trachea midline, no adenopathy. Heart--normal S1 and S2. No murmurs, rubs or gallops. Lungs--clear bilaterally, no respiratory distress, no accessory muscle use Abdomen-normal bowel sounds and soft, nontender nondistended Extremities--no cyanosis or clubbing. No edema. Dermatologic--normal skin turgor, normal color, no abnormal lymph nodes, no rash. Neurologic--cranial nerves II through XII grossly intact. Rheumatologic--normal range of motion. Psychiatric--confusion Results & Data Results & Data ([facility]) Vital Signs (Past 12 Hours) Vital Signs Temp Pulse Resp BP Pulse Ox 08/02/20 23:44 98.4 F 73 17 178/65 H 94 Diagnostic Findings [facility] Patient: KEN GARCIA (Female) : 49 Status: ER Date: 08/02/20 23:32 Room #: History: recent falls Slices: 780 Priors: Tech: CieloSamuel morton @ [phone] Exams: CT C SPINE Contrast: Accession Numbers: [id number] Preliminary Findings Only See Final Report For Complete Findings CT C SPINE: Impression: No fracture or traumatic malalignment of the cervical spine. Degenerative changes seen in the cervical spine, most significant at C5-C6 and C6-C7. No high-grade spinal canal stenosis. Radiologist: Jared Arriaga MD Study ready at 23:41 and initial results transmitted at 00:05 *This report constitutes a preliminary interpretation only. Non-acute findings felt to be unrelated to the clinical presentation may not be discussed in this report. The study will be interpreted and a final report will be generated by the local Radiologist the following shift. To reach the hospital radiology department call [phone]. If a discrepancy is found between the preliminary and final interpretations of this study, please notify us via our Client Portal at [email or web address], [email or web address].You can also fax this report with a description of the discrepancy, or include the final report, to our daytime fax number [phone].If faxing, please indicate the severity of discrepancy using one of the following categories: [ ] 1 - Agree/Informational [ ] 2 - Unlikely to Affect Management [ ] 3 - Possible Eventual Change of Management [ ] 4 - Probable Immediate Change of Management For all other patient related information, please fax us at [phone]. [id number] [facility] Patient: KEN GARCIA (Female) : 49 Status: ER Date: 08/02/20 23:29 Room #: History: Stroke Like Symptoms FALL Slices: 59 Priors: Tech: Milli Holguin @ [phone] Exams: CT HEAD Contrast: Accession Numbers: [id number] Preliminary Findings Only See Final Report For Complete Findings CT HEAD: Impression: No acute intracranial hemorrhage or evidence of large territorial infarction. Small bilateral frontal convexity subdural hygroma versus chronic subdural hematomas. No calvarium or skull base fracture. No hydrocephalus. Radiologist: Jared Arriaga MD Study ready at 23:32 and initial results transmitted at 23:36 Communications: Clear Time Type Notes 08/02/20 23:43 Call Doctor Regarding Stroke, called Dr. Cheatham on 08/02 23:43 (- 05:00) *This report constitutes a preliminary interpretation only. Non-acute findings felt to be unrelated to the clinical presentation may not be discussed in this report. The study will be interpreted and a final report will be generated by the local Radiologist the following shift. To reach the hospital radiology department call [phone]. If a discrepancy is found between the preliminary and final interpretations of this study, please notify us via our Client Portal at [email or web address] [email or web address] [email or web address].You can also fax this report with a description of the discrepancy, or include the final report, to our daytime fax number [phone].If faxing, please indicate the severity of discrepancy using one of the following categories: [ ] 1 - Agree/Informational [ ] 2 - Unlikely to Affect Management [ ] 3 - Possible Eventual Change of Management [ ] 4 - Probable Immediate Change of Management For all other patient related information, please fax us at [phone]. [id number] [facility] Patient: KEN GARCIA (Female) : 49 Status: ER Date: 08/02/20 23:35 Room #: History: AMS, CONFUSED, FALL Slices: 464 Priors: Tech: Samuel Bryson @ [phone] Exams: CTA HEAD Contrast: IV Amt: 117 ML OPTIRAY 320 Accession Numbers: [id number] Preliminary Findings Only See Final Report For Complete Findings CTA HEAD: Impression: No large vessel occlusion. 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 Radiologist: Jared Arriaga MD Study ready at 23:39 and initial results transmitted at 23:50 Communications: Clear Time Type Notes 08/03/20 00:00 Call Doctor Regarding Stroke, called Dr. Cheatham on 08/03 00:01 (- 05:00) *This report constitutes a preliminary interpretation only. Non-acute findings felt to be unrelated to the clinical presentation may not be discussed in this report. The study will be interpreted and a final report will be generated by the local Radiologist the following shift. To reach the hospital radiology department call [phone]. If a discrepancy is found between the preliminary and final interpretations of this study, please notify us via our Client Portal at [email or web address] [email or web address] [email or web address].You can also fax this report with a description of the discrepancy, or include the final report, to our daytime fax number [phone].If faxing, please indicate the severity of discrepancy using one of the following categories: [ ] 1 - Agree/Informational [ ] 2 - Unlikely to Affect Management [ ] 3 - Possible Eventual Change of Management [ ] 4 - Probable Immediate Change of Management For all other patient related information, please fax us at [phone]. [id number] [facility] Patient: KEN GARCIA (Female) : 49 Status: ER Date: 08/02/20 23:42 Room #: History: CONFUSION, AMS, FALL Slices: 701 Priors: Tech: Samuel Bryson @ [phone] Exams: CTA NECK Contrast: IV Amt: 117 ML OPTIRAY 320 Accession Numbers: [id number] Preliminary Findings Only See Final Report For Complete Findings CTA NECK: Impression: Atherosclerosis of the left carotid bifurcation with 50-69% stenosis of the proximal left internal carotid artery. Atherosclerosis of the right carotid bifurcation with without hemodynamically significant stenosis. The vertebral arteries are patent. Radiologist: Jared Arriaga MD Study ready at 23:45 and initial results transmitted at 23:55 Communications: Clear Time Type Notes 08/03/20 00:00 Call Doctor Regarding Stroke, called Dr. Cheatham on 08/03 00:01 (- 05:00) *This report constitutes a preliminary interpretation only. Non-acute findings felt to be unrelated to the clinical presentation may not be discussed in this report. The study will be interpreted and a final report will be generated by the local Radiologist the following shift. To reach the hospital radiology department call [phone]. If a discrepancy is found between the preliminary and final interpretations of this study, please notify us via our Client Portal at [email or web address].You can also fax this report with a description of the discrepancy, or include the final report, to our daytime fax number [phone].If faxing, please indicate the severity of discrepancy using one of the following categories: [ ] 1 - Agree/Informational [ ] 2 - Unlikely to Affect Management [ ] 3 - Possible Eventual Change of Management [ ] 4 - Probable Immediate Change of Management For all other patient related information, please fax us at [phone]. [id number] Code Status & VTE Plan Code Status Full code VTE Prophylaxis Plan VTE Prophylaxis will be ordered: Yes PG Care Time/CCT Total # of Minutes Spent Total Time Spent with Patient: Total time spent is greater than 50% in coordination of care (as documented) at patient's floor/unit and/or counseling patient: Coding Level of Care Code 84177 OBS Care - Level 3 Diagnoses TIA (transient ischemic attack) G45.9 Schatzki's ring K22.[address] R93.89 Chronic reflux esophagitis K21.0 Hypothyroidism E03.9 Depression F32.9 Generalized anxiety disorder F41.1 Hypertension I10 Pulmonary embolism I26.99
[2020-08-03] MEDS ORDERED: PHARMACIST DISCHARGE MED REC CONSULT PRN (03:42)
[2020-08-03] MEDS ORDERED: ONDANSETRON INJ 2 MG/ML 2 ML VIAL IV PRN (03:42)
[2020-08-03] MEDS ORDERED: ALPRAZolam 0.5 MG TABLET PO PRN (03:42)
[2020-08-03] MEDS ORDERED: ACETAMINOPHEN 325 MG TAB PO PRN (03:42)
[2020-08-03] MEDS ORDERED: FLUTICASONE PROPIONATE NA SPR 16 GM BTL NAE PRN (03:42)
[2020-08-03] MEDS ORDERED: NSS + 20MEQ KCL 20 MEQ/1,000 ML BAG IV SCH (04:15)
--- NOTE | 2020-08-03 06:29 | XRay Report ---
XR chest 1V portable HISTORY: 74 years-old Female Stroke Like Symptoms acute strokelike symptoms COMPARISON: Chest radiograph 05/02/2020, chest CT 07/02/2020 TECHNIQUE: Portable AP view of the chest FINDINGS: Cardiomediastinal and hilar silhouettes are within normal limits. Emphysema without pneumothorax, ple ural effusion, airspace consolidation or overt pulmonary edema. The previously noted nodular bibasila r opacities are better characterized on comparison chest CT. IMPRESSION: Emphysema without acute process. ACT 112: Negative or not required by law. The above report was generated using voice recognition software. It may contain grammatical, syntax o r spelling errors. Electronically signed by: Segundo Montez M.D. 08/03/2020 6:28 AM
[2020-08-03] MEDS ORDERED: LEVOTHYROXINE SODIUM 50 MCG TABLET PO SCH (06:30)
--- NOTE | 2020-08-03 06:37 | CT Scan Report ---
CT cervical spine wo con CT DOSE: 2268.32 mGy.cm CLINICAL HISTORY: 74 years-old Female with fall. Acute head and neck injury status post fall. Acute strokelike symptoms COMPARISON: Head CT of same day TECHNIQUE: Multiple axial CT images of the cervical spine were obtained without contrast. A dose low ering technique was utilized adhering to the principles of ALARA. FINDINGS: Demineralized appearance of the bones. Severe intervertebral disc space narrowing with moderate spond ylitic spurring at C5-C6 and C6-C7. Mild to moderate facet arthrosis. No acute fracture or subluxatio n. Emphysematous changes of the lung apices. Surgical clips suggestive of thyroidectomy. There is no pre vertebral edema. Calcified plaque of the carotid bulbs. IMPRESSION: No acute fracture or subluxation. ACT 112: Negative or not required by law. The above report was generated using voice recognition software. It may contain grammatical, syntax o r spelling errors. Electronically signed by: Segundo Montez M.D. 08/03/2020 6:35 AM
--- NOTE | 2020-08-03 06:40 | CT Scan Report ---
CT head/brain wo con CLINICAL HISTORY: 74 years-old Female with Stroke Like Symptoms. Acute strokelike symptoms TECHNIQUE: Multiple axial CT images of the head were obtained without contrast. A dose lowering tech nique was utilized adhering to the principles of ALARA. COMPARISON: CTA head and neck of same day, head CT 05/16/2019, 05/25/2017, 12/01/2013. FINDINGS: No acute intracranial hemorrhage, midline shift, intracranial mass, hydrocephalus, territorial ischem ia or abnormal extra-axial collection. Age-related involutional changes. Prominence of the extra-axia l spaces, notably adjacent to the frontal lobes is unchanged dating back to 2016, likely secondary to the aforementioned cerebral atrophy. The calvarium is intact. Prior bilateral lens replacement. The paranasal sinuses, mastoid air cells, and middle ear cavities are clear. IMPRESSION: No acute intracranial abnormality. ACT 112: Negative or not required by law. The above report was generated using voice recognition software. It may contain grammatical, syntax o r spelling errors. Electronically signed by: Segundo Montez M.D. 08/03/2020 6:39 AM
--- NOTE | 2020-08-03 07:19 | CT Scan Report ---
HEAD & NECK CTA HISTORY: Stroke Like Symptoms TECHNIQUE: Multiaxial CT images of the head were performed following the intravenous administration o f contrast to evaluate the major cerebral vessels. Multiaxial CT images of the neck were also perform ed following the intravenous administration of contrast to evaluate the major cervical vessels. Maxim um intensity projection images were also obtained. A dose lowering technique was utilized adhering to the principles of ALARA. COMPARISON: None. FINDINGS: There is no mass, hematoma, midline shift, or acute infarct. Focal high-grade stenosis within the pro ximal basilar artery best seen on image 51. This demonstrates 90% focal stenosis. The distal basilar artery is patent. Visualized intracranial internal carotid arteries, distal vertebral arteries are wi marco patent. There is no significant stenosis, occlusion, or aneurysm seen within the bilateral ACAs, MCAs, or federal mediator. The aortic arch and proximal great vessels are widely patent. There is no significant stenosis, occ lusion, or dissection identified within the bilateral common carotid or vertebral arteries. Mild righ t and moderate left carotid bifurcation calcification. This results in 50-69% stenosis within the lef t carotid bulb. No significant stenosis within the right internal carotid artery. IMPRESSION: 1. Focal high-grade stenosis within the proximal basilar artery of up to 90%. Otherwise, no significa nt stenosis, occlusion, or aneurysm within the [place]. 2. Approximately 50-69% stenosis within the proximal left internal carotid artery. The bilateral comm on carotid, vertebral, and right internal carotid arteries are patent. ACT 112: Negative or not required by law. Electronically signed by: Willam Clemons M.D. 08/03/2020 7:18 AM
--- NOTE | 2020-08-03 07:19 | CT Scan Report ---
HEAD & NECK CTA HISTORY: Stroke Like Symptoms TECHNIQUE: Multiaxial CT images of the head were performed following the intravenous administration o f contrast to evaluate the major cerebral vessels. Multiaxial CT images of the neck were also perform ed following the intravenous administration of contrast to evaluate the major cervical vessels. Maxim um intensity projection images were also obtained. A dose lowering technique was utilized adhering to the principles of ALARA. COMPARISON: None. FINDINGS: There is no mass, hematoma, midline shift, or acute infarct. Focal high-grade stenosis within the pro ximal basilar artery best seen on image 51. This demonstrates 90% focal stenosis. The distal basilar artery is patent. Visualized intracranial internal carotid arteries, distal vertebral arteries are wi marco patent. There is no significant stenosis, occlusion, or aneurysm seen within the bilateral ACAs, MCAs, or day [employer] youth supervisor. The aortic arch and proximal great vessels are widely patent. There is no significant stenosis, occ lusion, or dissection identified within the bilateral common carotid or vertebral arteries. Mild righ t and moderate left carotid bifurcation calcification. This results in 50-69% stenosis within the lef t carotid bulb. No significant stenosis within the right internal carotid artery. IMPRESSION: 1. Focal high-grade stenosis within the proximal basilar artery of up to 90%. Otherwise, no significa nt stenosis, occlusion, or aneurysm within the [place]. 2. Approximately 50-69% stenosis within the proximal left internal carotid artery. The bilateral comm on carotid, vertebral, and right internal carotid arteries are patent. ACT 112: Negative or not required by law. Electronically signed by: Willam Clemons M.D. 08/03/2020 7:18 AM
[2020-08-03 07:52] LABS: Estimated Average Glucose 114 mg/dl; Hemoglobin A1C 5.6 % (4.5-5.6)
[2020-08-03 07:58] LABS: BUN Creatinine Ratio 12.6 (10-20); Calcium 9.4 mg/dl (8.5-10.1); Est GFR (African American) 68.5; Est GFR (Non-African American) 59.1; Potassium 3.3 mmol/L (3.5-5.1)
[2020-08-03] MEDS ORDERED: POTASSIUM CHLORIDE CRTAB 20 MEQ TABCR PO ONE (09:00)
[2020-08-03] MEDS ORDERED: MULTIVITAMIN TAB PO SCH (09:00)
[2020-08-03] MEDS ORDERED: buPROPion XL 150 MG TABCR PO SCH (09:00)
[2020-08-03] MEDS ORDERED: PANTOprazole 40 MG TAB PO SCH (09:00)
[2020-08-03] MEDS ORDERED: estradioL 1 MG TAB PO SCH (09:00)
[2020-08-03] MEDS ORDERED: UMECLIDINIUM/VILANTEROL 62.5/25MCG 7 PUFFS/INHALER INH SCH (09:00)
[2020-08-03] MEDS ORDERED: APIXABAN 5 MG TABLET PO SCH (09:00)
[2020-08-03] MEDS ORDERED: ADVANCED PROBIOTIC 1250 MG CAPSULE PO SCH (09:00)
[2020-08-03] MEDS ORDERED: POTASSIUM CHLORIDE 10 MEQ TABCR PO SCH (09:00)
[2020-08-03] MEDS ORDERED: VENLAFAXINE HCL XR 150 MG CAPXR PO SCH (09:00)
--- NOTE | 2020-08-03 09:01 | Hospitalist Progress Note ---
Date of Service August 03, 2020 Assessment & Plan (1) TIA (transient ischemic attack): patient c/o sudden onset at 1830 08/02/20 of difficulty walking and slurred speech chronically on Eliquis Strokelike episode characterized by dysarthria and gait dysfunction based on available information from the emergency department and admission history. She does have a 90% stenosis of the basilar artery and her presenting symptoms could be consistent with a posterior circulation TIA or stroke. 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 Reviewed by [facility] neurology, and reportedly thought to not be necessary for further pursuit CTA neck shows proximal left internal carotid artery stenosis 50 to 69% CTA head showed moderate stenoses of basilar artery.-> neurology recommending aspirin 81 mg and a statin MRI of brain without contrast Mild to moderate atrophic changes. No acute intracranial abnormality. (2) Schatzki's ring: Schatzki ring/chronic reflux esophagitis- Continue pantoprazole (3) Abnormal chest CT: Following with Dr. Sotomayor for concerning pulmonary nodules (4) Chronic reflux esophagitis: See above (5) Hypothyroidism: Continue levothyroxine (6) Depression: Depression/generalized anxiety disorder- Continue usual medications (7) Generalized anxiety disorder: Continue usual medications (8) Hypertension: Hold indapamide (9) Pulmonary embolism: On Eliquis (10) Basilar artery stenosis: (11) Cerebral atrophy: She has progressive frontal lobe atrophy on several head CT's dating back 14 years and neurology consult has some concern for an underlying frontotemporal dementia. Neurology does recommend starting aspirin 81 mg/day, in addition to her apixaban, in light of the 90% basilar artery stenosis also recommend starting a statin. 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 follow-up with Dr Villasenor in clinic in 2 to 3 weeks. Admission and Anticipated Discharge Date Admission Date: August 03, 2020 Results & Data Results & Data ([facility]) Vital Signs (Past 12 Hours) Vital Signs Temp Pulse Pulse Pulse Resp BP BP 08/03/20 08:00 97.5 F L 69 18 171/90 H 08/03/20 07:09 66 08/03/20 04:22 98.1 F 71 18 117/76 08/03/20 03:00 67 13 08/03/20 02:30 68 20 08/03/20 02:00 68 31 H 108/65 08/03/20 01:30 77 22 08/03/20 01:01 75 19 174/63 H 08/03/20 01:00 77 22 08/03/20 00:30 24 08/03/20 00:25 68 18 168/87 H 08/03/20 00:00 19 08/02/20 23:54 68 16 178/65 H 08/02/20 23:44 98.4 F 73 17 178/65 H 08/02/20 23:37 08/02/20 23:35 73 185/88 H Pulse Ox 08/03/20 08:00 96 08/03/20 07:09 08/03/20 04:22 98 08/03/20 03:00 97 08/03/20 02:30 97 08/03/20 02:00 97 08/03/20 01:30 96 08/03/20 01:01 98 08/03/20 01:00 97 08/03/20 00:30 97 08/03/20 00:25 99 08/03/20 00:00 98 08/02/20 23:54 100 08/02/20 23:44 94 08/02/20 23:37 99 08/02/20 23:35 100 PG Care Time/CCT Total # of Minutes Spent Total Time Spent with Patient: Total time spent is greater than 50% in coordination of care (as documented) at patient's floor/unit and/or counseling patient: Coding Diagnoses TIA (transient ischemic attack) G45.9 Schatzki's ring K22.[address] R93.89 Chronic reflux esophagitis K21.0 Hypothyroidism E03.9 Depression F32.9 Generalized anxiety disorder F41.1 Hypertension I10 Pulmonary embolism I26.99 Basilar artery stenosis I65.1 Cerebral atrophy G31.9
[2020-08-03] MEDS ORDERED: MAGNESIUM SULFATE / D5W 1 GM/100 ML BAG IV ONE (09:15)
--- NOTE | 2020-08-03 10:32 | Neurology Consultation ---
Date of Consultation August 03, 2020 Assessment & Plan (1) Stroke-like episode: (2) Basilar artery stenosis: (3) Cerebral atrophy: Strokelike episode characterized by dysarthria and gait dysfunction based on available information from the emergency department and admission history. She does have a 90% stenosis of the basilar artery and her presenting symptoms could be consistent with a posterior circulation TIA or stroke. MRI pending. The patient is an unreliable historian and is somewhat disinhibited. She has progressive frontal lobe atrophy on several head CT's dating back 14 years and I have some concern for an underlying frontotemporal dementia. I would recommend starting aspirin 81 mg/day, in addition to her apixaban, in light of the 90% basilar artery stenosis. Would also recommend starting a statin. Follow-up with brain MRI results. 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 Would check a vitamin B12 level. Patient may follow-up with me in clinic in 2 to 3 weeks. History of Present Illness Reason for Consultation: Strokelike symptoms Requesting Physician: Larry Cueto MD Attending Physician: Quinn Mathews MD History of Present Illness The patient is a 74-year-old female who presented to the emergency department yesterday for further evaluation of slurred speech and difficulty walking. According to emergency department records, the symptoms were of sudden onset at around 6:30 last night. However, the patient does report that she has been having difficulty with her gait and balance for at least the past year. Furthermore, she does not really recall having any specific difficulty with her speech. It does not appear that she had any dysarthria or aphasia during her initial evaluation in the emergency department. She was noted to be somewhat confused by the admitting physician, however. The patient did have a telestroke consultation but was not considered an appropriate candidate for TPA. Her history is a bit vague and the patient seems to be confused regarding specific details of her history of present illness. She has had 4-[address]'s completed over the past 14 years that have revealed a persistent, mildly progressive frontal lobe atrophy pattern although the possibility of chronic subdural hygromas has been considered as well. Past medical history is notable for COPD, pulmonary embolism, hypothyroidism, hypertension, and generalized anxiety disorder. She did well on a mini cognitive test administered as an outpatient on June 11, 2020. Allergies Allergy/AdvReac Type Severity Reaction Status Date / Time adhesive tape AdvReac Mild Rash Verified 08/02/20 23:30 amoxicillin AdvReac Mild YEAST Verified 08/02/20 23:30 INFECTIONS levofloxacin AdvReac Mild NERVOUS Verified 08/02/20 23:30 Home Medications Medication Instructions Recorded Confirmed Type Probiotic 1 cap PO QAM #0 11/08/16 08/02/20 History fluticasone propionate [Flonase 2 spray SANTY DAILY PRN #0 11/08/16 08/02/20 History Allergy Relief] multivitamin 1 tab PO QAM #0 tab 11/08/16 08/02/20 History umeclidinium 62.5 mcg-vilanterol 1 puffs INH Q24H 90 Days #60 ea 07/03/19 08/02/20 Rx 25 mcg/actuation powdr for inhalation venlafaxine 75 mg capsule,extended 75 mg PO HS #90 cap 09/22/19 08/02/20 Rx release 24 hr famotidine 40 mg tablet 40 mg PO HS #90 tab 03/10/20 08/02/20 Rx imipramine HCl 50 mg tablet 150 mg PO HS #270 tab 03/10/20 08/02/20 Rx pantoprazole 40 mg PO QAM 05/02/20 08/02/20 History estradiol 0.5 mg tablet 0.5 mg PO DAILY #90 tab 06/09/20 08/02/20 Rx albuterol sulfate 90 mcg/actuation 1 - 2 puff INH Q4H PRN #3 ea 06/14/20 08/02/20 Rx aerosol inhaler alprazolam 1 mg tablet 1 - 2 mg PO BID PRN #270 tab 06/14/20 08/02/20 Rx azelastine 137 mcg (0.1 %) nasal 2 spray INTNAS BID #3 ea 06/14/20 08/02/20 Rx spray aerosol bupropion HCl 150 mg 24 hr tablet, 150 mg PO QAM #90 tab 06/14/20 08/02/20 Rx extended release indapamide 1.25 mg tablet 1.25 mg PO QAM #90 tab 06/14/20 08/02/20 Rx levothyroxine 50 mcg tablet 50 mcg PO QAM #90 tab 06/14/20 08/02/20 Rx venlafaxine 150 mg 150 mg PO QAM #90 cap 06/14/20 08/02/20 Rx capsule,extended release 24 hr potassium chloride 8 mEq 8 meq PO DAILY #30 tab 07/28/20 08/02/20 Rx tablet,extended release apixaban 5 mg tablet 5 mg PO BID #180 tab 07/29/20 08/02/20 Rx Patient History Medical History Abnormal chest CT bl pulmonary lesions - "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 Sotomayor monitoring Acquired deviated nasal septum Cardiac murmur pt could not confirm - does not follow w/ cardio Chronic obstructive pulmonary disease Chronic rhinitis Depression Dyslipidemia Former smoker Generalized anxiety disorder Generalized osteoarthritis of multiple sites GERD (gastroesophageal reflux disease) Hearing deficit L EAR Hiatal hernia Hypertension Hypothyroidism Internal hemorrhoids Knee pain, left Laryngopharyngeal reflux Lumbar radiculopathy Multiple lipomas Multiple pulmonary nodules Nontoxic multinodular goiter Osteoarthritis Poor historian Tricuspid regurgitation Tubular adenoma of colon VAIN (vaginal intraepithelial neoplasia) remote, 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 Surgical History H/O removal of cyst R ARM History of arthroscopy KNEE-UNSURE WHICH ONE History of breast biopsy R BREAST-BENIGN History of cataract surgery RT/LT History of cholecystectomy History of colonoscopy History of dilatation and curettage History of esophagogastroduodenoscopy (EGD) w/ dilation History of eye surgery Left History of oral surgery History of thyroidectomy, subtotal L SIDE History of tonsillectomy History of tooth extraction History of total abdominal hysterectomy and bilateral salpingo-oophorectomy History of tubal ligation S/P excision of lipoma (08/08/19) Bilateral Arm Lipomas Excision (x7)(Bilateral) Dr. Asencio 08-08-19 Family History Grandmother Family history of diabetes mellitus MATERNAL Mother Family hx of colon cancer Colorectal cancer Father Coronary heart disease Daughter Slow to wake up after anesthesia Denies family history of Ovarian cancer Prostate cancer Myocardial infarction Breast cancer Social History Smoking Status: Former smoker Tobacco Type: Cigarettes Second Hand Exposure: Yes; Hx Alcohol Use: No Hx Substance Use: No Preferred Language: [place] Communication Ability: Effective Hospital Chief Executive Officer Required: No Beliefs That Will Affect Care: None Current Living Situation: Family Current Living Situation Comment: dgtr current occupational status: retired Other Information That Helps Us Care for You: No Feels Safe at Home: Yes Safety Concerns: Feels Safe At This Time Dental Care, Regularly: Yes Physical Activity Frequency: Does not Exercise Seatbelt Use: always Sunscreen Use: No Assistive Devices: Glasses Review of Systems Review of Systems: All systems reviewed & are unremarkable except as noted in HPI & below Unreliable due to current cognitive status. Exam (Neuro) Constitutional: well developed and well nourished; no acute distress Eyes: normal visual duque by confrontation, PERRL, normal accommodation and EOM intact bilaterally; no fundoscopic abnormality, no nystagmus and no papilledema Cardiovascular: Vessels: normal carotid upstroke; no carotid bruit Neurologic: Oriented to:: Person, Place and Time Memory: Remote Intact; negative Short Term Intact Attention: Span Intact; negative Concentration Intact Language: Naming Objects and Repeating Phrases Speech Fluency: negative Dysarthria Speech Aphasia: negative Aphasia Fund of Knowledge: Past History and Vocabulary; negative Current Events Cranial Nerves: Normal II (Visual duque full to confrontation, visual acuity normal), III, IV, (Pupils equal round reactive to light and accommodation, eye movements normal), V (Facial sensation intact), VII (There is no facial droop or weakness), VIII (Hearing intact), IX, X (Palate elevates to midline), XI (Shoulder shrug intact) and XII (Tongue protrudes to midline) Motor Strength: Normal Lower Extremities and Normal Upper Extremities; negative Pronator Drift Motor Tone: Normal Lower Extremities and Normal Upper Extremities Muscle Bulk/Involuntary Movements: No Involuntary Movements; negative Muscle Atrophy Sensation: Light Touch Intact, Pain/Temperature Intact, Vibration Intact and Proprioception Intact Coordination: Normal; negative Limited Balance, Dysdiadochokinesia, Finger-Nose Abnormal and Heel-Sutton Abnormal Deep Tendon Reflexes: Rt Triceps: 2+, Lt Triceps: 2+, Rt Biceps: 2+, Lt Biceps: 2+, Rt Brachioradialis: 2+, Lt Brachioradialis: 2+, Rt Patellar: 2+, Lt Patellar: 2+, Rt Ankle: 2+ and Lt Ankle: 2+ Special Tests: negative Babinski Present Details: Patient able to stand up on her own at bedside, balance poor. Gait was not tested for safety reasons. Patient seems moderately disinhibited. Thoughts seem somewhat confused, not goal-directed. Results & Data ([facility]) Vital Signs (Past 12 Hours) Vital Signs Temp Pulse Pulse Pulse Resp BP BP 08/03/20 08:00 36.4 C L 69 18 171/90 H 08/03/20 07:09 66 08/03/20 04:22 36.7 C 71 18 117/76 08/03/20 03:00 67 13 08/03/20 02:30 68 20 08/03/20 02:00 68 31 H 108/65 08/03/20 01:30 77 22 08/03/20 01:01 75 19 174/63 H 08/03/20 01:00 77 22 08/03/20 00:30 24 08/03/20 00:25 68 18 168/87 H 08/03/20 00:00 19 08/02/20 23:54 68 16 178/65 H 08/02/20 23:44 36.9 C 73 17 178/65 H 08/02/20 23:37 08/02/20 23:35 73 185/88 H Pulse Ox 08/03/20 08:00 96 08/03/20 07:09 08/03/20 04:22 98 08/03/20 03:00 97 08/03/20 02:30 97 08/03/20 02:00 97 08/03/20 01:30 96 08/03/20 01:01 98 08/03/20 01:00 97 08/03/20 00:30 97 08/03/20 00:25 99 08/03/20 00:00 98 08/02/20 23:54 100 08/02/20 23:44 94 08/02/20 23:37 99 08/02/20 23:35 100 Laboratory Results WBC 8.25, hemoglobin 11.7, hematocrit 36.5, platelet count 277, sodium 138, potassium 3.3, BUN 12, creatinine 0.96, glucose 83, hemoglobin A1c 5.6, calcium 9.4, magnesium 1.9, AST 11, ALT 18, ammonia less than 10.0, troponin less than 0.015, triglycerides 103, cholesterol 197, LDL 112, VLDL 21, HDL 64, TSH 2.980, ethyl alcohol less than 3.[address] of the head negative for hemorrhage or acute process. There is frontal lobe atrophy which has been slightly progressive on previous head CT's dating back to 2006. I reviewed the images pertaining to the studies. Findings not suggestive of NPH. CT of the head and neck reveals a focal high-grade stenosis within the proximal basilar artery above the 90% and a 50 to 69% stenosis within the proximal left internal carotid artery. Electrocardiogram completed in the emergency department revealed a normal sinus rhythm, 73 bpm. PG Care Time/CCT Total # of Minutes Spent Total Time Spent with Patient: Total time spent is greater than 50% in coordination of care (as documented) at patient's floor/unit and/or counseling patient: Coding Level of Care Code 13131 Initial Inpt Care Lvl 3 Diagnoses Stroke-like episode R29.90 Basilar artery stenosis I65.1 Cerebral atrophy G31.9
--- NOTE | 2020-08-03 11:08 | Magnetic Resonance Report ---
Brain MRI WITHOUT CONTRAST HISTORY: Headache. Confusion. stroke-like symptoms TECHNIQUE: Multiplanar multisequence MRI of the brain was performed without the use of contrast. COMPARISON STUDY: Head CT 08/02/2020. FINDINGS: There are no areas of restricted diffusion to suggest acute infarction. The midline structu res are intact. The paranasal sinuses are clear. The mastoid air cells are clear. The ventricles and sulci demonstrate mild to moderate atrophic changes. This likely accounts for the prominence of the f rontal extra-axial spaces. This remains unchanged.. There is no mass, hematoma, midline shift. The ma declan vascular flow-voids at the skull base are well maintained. IMPRESSION: Mild to moderate atrophic changes. No acute intracranial abnormality. ACT 112: Negative or not required by law. Electronically signed by: Willam Clemons M.D. 08/03/2020 11:07 AM
--- NOTE | 2020-08-03 12:26 | XCELERA ---
[id number] \\[id number]
[2020-08-03] MEDS ORDERED: STROKE PATIENT DISCHARGE STA (13:58)
--- NOTE | 2020-08-03 15:35 | Discharge Summary ---
Date of Service August 03, 2020 Admission HPI Per Admitting Provider The patient is a 74-year-old female with a past medical history including pulmonary embolism, AC joint arthritis, left knee patellar bursitis, SNHL, lung abscess, Schatzki's ring, esophageal dysphagia, vaginal intraepithelial neoplasia stage I, toxic multinodular goiter, chronic reflux esophagitis, hypothyroidism, depression, dyslipidemia, generalized anxiety disorder, hypertension, multiple pulmonary nodules and tricuspid regurgitation. Patient was brought to the emergency department as a stroke alert. Imaging studies included a CT of the head which showed chronic subdural hygroma versus subdural hematoma, reviewed by [employer] neurology as not needing any further work-up or intervention. CTA of neck showed proximal left internal carotid artery stenosis 50-69%. CTA of head showed moderate to severe stenosis of the mid basilar artery. CT of cervical spine showed C5-6, C6-7 degenerative disc disease Principal Diagnosis basilar artery stenosis frontotemporal dementia Discharge Exam The patient appeared to have some baseline neurological compromise Vital signs as documented. Lungs are clear to auscultation and appear unlabored Cardiac exam, Rhythm is regular.. No murmurs, rubs or gallops. Abdominal exam reveals normal bowel sounds, soft non tender, no masses Extremities are nonedematous and both pedal pulses are normal. Neurologic exam is alert and oriented, no focal loss of strength or sensation Skin is without bruises or rashes Psychologically is with concerns for some mild anxiety Discharge Data Allergies Allergy/AdvReac Type Severity Reaction Status Date / Time adhesive tape AdvReac Mild Rash Verified 08/02/20 23:30 amoxicillin AdvReac Mild YEAST Verified 08/02/20 23:30 INFECTIONS levofloxacin AdvReac Mild NERVOUS Verified 08/02/20 23:30 Consultations 08/03/20 00:41 ED Decision to Admit Stat 08/03/20 03:42 Consult Case Management - Discharge Planning Routine Consult Case Management - Discharge Planning Routine Consult Neurology Routine Ordered Studies 08/02/20 23:01 CT angio head w con Urgent CT angio neck with con Urgent CT head/brain wo con Urgent 08/02/20 23:02 CT cervical spine wo con Urgent 08/03/20 03:42 MR brain wo con Routine Hospital Course (1) TIA (transient ischemic attack): patient c/o sudden onset at 1830 08/02/20 of difficulty walking and slurred speech chronically on Eliquis Strokelike episode characterized by dysarthria and gait dysfunction based on available information from the emergency department and admission history. She does have a 90% stenosis of the basilar artery and her presenting symptoms could be consistent with a posterior circulation TIA or stroke. 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 Reviewed by [facility] neurology, and reportedly thought to not be necessary for further pursuit CTA neck shows proximal left internal carotid artery stenosis 50 to 69% CTA head showed moderate stenoses of basilar artery.-> neurology recommending aspirin 81 mg and a statin, will stop estrogen for its risk of thrombosis MRI of brain without contrast Mild to moderate atrophic changes. No acute intracranial abnormality. (2) Schatzki's ring: Schatzki ring/chronic reflux esophagitis- Continue pantoprazole (3) Abnormal chest CT: Following with Dr. Sotomayor for concerning pulmonary nodules (4) Chronic reflux esophagitis: See above (5) Hypothyroidism: Continue levothyroxine (6) Depression: Depression/generalized anxiety disorder- Continue usual medications (7) Generalized anxiety disorder: Continue usual medications (8) Hypertension: Hold indapamide (9) Pulmonary embolism: On Eliquis (10) Basilar artery stenosis: (11) Cerebral atrophy: She has progressive frontal lobe atrophy on several head CT's dating back 14 years and neurology consult has some concern for an underlying frontotemporal dementia. Neurology does recommend starting aspirin 81 mg/day, in addition to her apixaban, in light of the 90% basilar artery stenosis also recommend starting a statin. 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 follow-up with Dr Villasenor in clinic in 2 to 3 weeks. Total Time Total Time Spent Total Time Spent (In Minutes): It required greater than 30 minutes to prepare this patient for discharge Discharge Plan Discharge Items Patient Disposition: Home - Home Health Services Reason For Visit: STROKE LIKE SYMPTOMS Discharge Diagnosis: narrowing of artery supply to brain the basilar artery Activity: Resume your previous activity Non-emergency contact: Primary Care Provider Call non-emergency contact if: your symptoms worsen and your temperature is a martha 101 Follow-up/Referrals: Saravanan Villasenor MD [Physician] - 08/13/20 2:00 pm (Your appointment is with the physician outpatient physical therapist assistant, Natacha Levy. If you need to change this appointment, please call [phone].) ProPravin MD [Primary Care Provider] - 08/09/20 3:00 pm (Your appointment is with the physician outpatient physical therapist assistant, Dot Holloway. If you need to change this appointment, please call [phone].) Diet: Heart Healthy Addtl Attending Provider Instructions: The Neurology specialist has recommended some new medications for you to try to reduce your future chances of having a stroke. These include Aspirin at low dose due to the fact that you take a blood thinner, also to start a cholesterol lowering medication.Dr Villasenor the neurologist wants to follow up with you in his office in a few weeks to check and see how you are doing Risk Factors for Stroke: You can reduce your chances of stroke by working with your medical provider to adopt a healthy lifestyle. Some specific ways to lower your chance of stroke are: * If you are a smoker, now is the time to stop smoking cigarettes * If you are diabetic, improve the control of your blood sugars * Avoid excessive amounts of alcohol * Control high blood pressure * Lose weight if you are overweight * Be sure to lead an active lifestyle * Eat a healthy diet low in salt, cholesterol and fat You should know about other risk factors for stroke that you are unable to control. These include: * Age 55 years or older * Male gender * Certain racial groups: , or / * Family History of Stroke, Mini stroke or Heart Attack * Sickle Cell Disease Follow Up: It is important for you to keep your follow up appointments with your medical provider. Who to Call and When: Medical Emergencies: Call 911 immediately if you experience any of the following warning signs and symptoms of Stroke: * Sudden numbness or weakness of the face, arm or leg, especially on one side of the body * Sudden confusion, trouble speaking or understanding * Sudden trouble seeing in one or both eyes * Sudden trouble walking, dizziness, loss of balance or coordination * Sudden severe headache with no cause Do not delay calling 911 if you experience any warning signs or symptoms of a stroke. Delay in seeking medical attention may affect what treatments can be given to you. . Pending Studies at Discharge: No Stand-Alone Forms: Medications to Prevent Stroke, My Gnodal, Smoking Cessation Medications and DC Order Prescriptions: New aspirin 81 mg tablet,delayed release (DR/EC) 81 mg PO DAILY Qty: 90 RF: 0 atorvastatin 40 mg tablet 40 mg PO DAILY Qty: 30 RF: 3 Continued multivitamin Tablet 1 tab PO QAM Qty: 0 RF: 0 fluticasone propionate [Flonase Allergy Relief] 50 mcg/actuation Ethridge,Suspension 2 spray SANTY DAILY PRN (Reason: Nasal Congestion) Qty: 0 RF: 0 Probiotic 5 billion cell Capsule, Sprinkle 1 cap PO QAM Qty: 0 RF: 0 Anoro Ellipta 62.5-25 mcg/actuation blister with device 1 puffs INH Q24H 90 Days Qty: 60 RF: 3 venlafaxine 75 mg capsule,extended release 24hr 75 mg PO HS Qty: 90 RF: 3 potassium chloride 8 mEq tablet extended release 8 meq PO DAILY Qty: 30 RF: 2 Eliquis 5 mg tablet 5 mg PO BID Qty: 180 RF: 3 imipramine HCl 50 mg tablet 150 mg PO HS Qty: 270 RF: 3 famotidine 40 mg tablet 40 mg PO HS Qty: 90 RF: 3 albuterol sulfate 90 mcg/actuation HFA aerosol inhaler 1 - 2 puff INH Q4H PRN (Reason: SOB) Qty: 3 RF: 1 alprazolam [Xanax] 1 mg tablet 1 - 2 mg PO BID PRN (Reason: anxiety) Qty: 270 RF: 0 azelastine 137 mcg (0.1 %) aerosol,spray 2 spray INTNAS BID Qty: 3 RF: 1 bupropion HCl [Wellbutrin XL] 150 mg tablet extended release 24 hr 150 mg PO QAM Qty: 90 RF: 3 indapamide 1.25 mg tablet 1.25 mg PO QAM Qty: 90 RF: 3 levothyroxine [Synthroid] 50 mcg tablet 50 mcg PO QAM Qty: 90 RF: 3 venlafaxine 150 mg capsule,extended release 24hr 150 mg PO QAM Qty: 90 RF: 1 pantoprazole 40 mg tablet,delayed release (DR/EC) 40 mg PO QAM RF: 0 Discontinued estradiol 0.5 mg tablet 0.5 mg PO DAILY Qty: 90 RF: 3 Discharge Orders: Discharge Order (Routine); Ordered 08/03/20 Ordered By: Quinn Mathews Admission Data Admit Date/Time: 08/03/20 02:15 Attending Provider: Quinn Mathews Admit Provider: Larry Cueto Primary Care Provider: Pravin Drew Other Providers: Larry uCeto ; Saravanan Villasenor Other Interventions: Discharge Summary Assessment (RN) Last Done: 08/03/20 14:07 Coding Level of Care Code D/C Day Management >30 mins Diagnoses TIA (transient ischemic attack) G45.9 Schatzki's ring K22.[address] R93.89 Chronic reflux esophagitis K21.0 Hypothyroidism E03.9 Depression F32.9 Generalized anxiety disorder F41.1 Hypertension I10 Pulmonary embolism I26.99 Basilar artery stenosis I65.1 Cerebral atrophy G31.9
--- NOTE | 2020-08-03 15:38 | Pharmacy Report ---
Pharmacist Stroke Counseling - Date of Service August 03, 2020 - Scope: Pharmacy has been consulted to provide medication discharge counseling for this patient admitted with TIA/stroke as per the Pharmacist Discharge Counseling for Stroke Patients Protocol. - Medications on Discharge: - Action: The above medications, specifically ones for stroke treatment/prophylaxis, have been reviewed in detail with the patient and her daughter prior to discharge. This includes indication, common adverse reactions, drug interactions, and medication administration. Medication counseling has been employed using the teach-back method to ensure understanding. Of note, the patient was a poor historian and did repeat the same questions multiple times throughout the discharge session. She was also not willing to stop the estrogen replacement therapy as advised by Neurology and Hospitalist. She and her daughter were advised that estrogen therapy increases her risk of stroke and PE and that was the reason for this recommendation. - Outcome: The patient's daughter was advised to call Mateo Nathan if she has any questions regarding the medication changes upon discharge. Thank you for allowing pharmacy to be involved in the care of this patient. Please call [phone] with any additional questions
[2020-08-03] MEDS ORDERED: VENLAFAXINE HCL XR 75 MG CAPXR PO SCH (21:00)
[2020-08-03] MEDS ORDERED: IMIPRAMINE HCL 50 MG TAB PO SCH (21:00)
[2020-08-03] MEDS ORDERED: FAMOTIDINE 40 MG TABLET PO SCH (21:00)
== END 2020-08-03 15:51 | disposition home health service (06) ==
LOC: 2N 23:02 → ED 23:02 → SUATTDRO 08-03 02:15 → 2N 08-03 03:19

== ENCOUNTER 2021-12-25 07:15 | Inpatient (IN) ==
[2021-12-25] MEDS ORDERED: CEFEPIME 2,000 MG/20 ML VIAL IV STA (07:47)
--- NOTE | 2021-12-25 07:53 | Emergency Department Note ---
History of Present Illness General Chief complaint: Respiratory Problems Stated complaint: DIAGNOSED W/PNEUMONIA Time Seen by Provider: 12/25/21 07:25 History of Present Illness 76-year-old female presents with her small dog to the emergency department for evaluation of ongoing shortness of breath. She states that she feels the same as yesterday. She was evaluated yesterday and had a CT scan of the chest that showed a large right lower lobe pneumonia. She is chronically on Eliquis with a history of PE. She does report a sometimes productive cough but she has not looked at it. She states that she spit some mucus out last night but did not say what it looked like. The patient has no additional complaints at this time. She has not had any nausea or vomiting. No abdominal pains or chest pains. Symptoms are worse with exertion. Home Medications Medication Instructions Recorded Confirmed Type Lactobacil.acidophilus-Bifido.animalis 1 cap PO QAM ##0 11/08/16 11/04/21 History 5 billion cell sprinkle capsule (Probiotic) fluticasone propionate 50 2 spray SANTY DAILY PRN Nasal 11/08/16 11/04/21 History mcg/actuation nasal Congestion ##0 spray,suspension (Flonase Allergy Relief) multivitamin 1 tab PO QAM #0 tabs 11/08/16 11/04/21 History albuterol sulfate 90 mcg/actuation 1 - 2 puff inhalation Q4H PRN SOB 06/14/20 11/04/21 Rx aerosol inhaler #3 ea azelastine 137 mcg (0.1 %) nasal 2 spray intranasal BID #3 ea 06/14/20 11/04/21 Rx spray aerosol aspirin 81 mg tablet,delayed 81 mg PO QAM #90 tabs 03/11/21 11/04/21 Rx release imipramine HCl 50 mg tablet 150 mg PO HS #270 tabs 05/11/21 11/04/21 Rx levothyroxine 50 mcg tablet 50 mcg PO DAILY #90 tabs 05/19/21 11/04/21 Rx (Synthroid) apixaban 5 mg tablet (Eliquis) 5 mg PO BID #180 tabs 06/17/21 11/04/21 Rx bupropion HCl 150 mg 24 hr tablet, 150 mg PO QAM #90 tabs 01/21/22 06/10/22 Rx extended release (Wellbutrin XL) venlafaxine 150 mg 150 mg PO QAM #90 caps 06/17/21 11/04/21 Rx capsule,extended release 24 hr fluticasone fur. 100 mcg-umeclid 1 inh inhalation DAILY #60 ea 07/01/21 11/04/21 Rx 62.5 mcg-vilant 25 mcg inhalat.powder (Trelegy Ellipta) fluconazole 150 mg tablet 150 mg PO Q3D PRN Yeast infection 09/30/21 11/04/21 Rx (Diflucan) 2 doses #2 tabs pantoprazole 40 mg tablet,delayed 40 mg PO BID #180 tabs 10/04/21 11/04/21 Rx release venlafaxine 75 mg capsule,extended 75 mg PO HS #90 caps 10/25/21 11/04/21 Rx release 24 hr B6 0.85 mg-folic 200 2 tab PO 10/26/21 11/04/21 History [id number] oral chewable tablet (Neuriva Plus) atorvastatin 80 mg tablet 80 mg PO DAILY #90 tabs 10/26/21 11/04/21 Rx famotidine 40 mg tablet 40 mg PO DAILY #90 tabs 10/26/21 11/04/21 Rx indapamide 1.25 mg tablet 1.25 mg PO QAM 10/26/21 11/04/21 History melatonin 10 mg tablet 10 mg PO HS PRN 10/26/21 11/04/21 History potassium chloride 8 mEq 8 meq PO QAM #90 tabs 10/26/21 11/04/21 Rx tablet,extended release alprazolam 1 mg tablet (Xanax) 2 mg PO HS #180 tabs 12/12/21 Rx Saccharomyces boulardii 250 mg 250 mg PO BID #20 caps 12/24/21 Rx capsule (Florastor) amoxicillin 875 mg-potassium 1 tab PO Q12H diverticulitis #20 12/24/21 Rx clavulanate 125 mg tablet tabs Allergies Allergy/AdvReac Type Severity Reaction Status Date / Time adhesive tape AdvReac Mild Rash Verified 11/04/21 11:23 amoxicillin AdvReac Mild YEAST Verified 11/04/21 11:23 INFECTIONS levofloxacin AdvReac Mild NERVOUS Verified 11/04/21 11:23 Past Med/Surg History Medical History Abnormal chest CT bl pulmonary lesions - "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 Sotomayor and Dr. Hayden monitoring Acquired deviated nasal septum Cardiac murmur pt could not confirm - does not follow w/ cardio Chronic obstructive pulmonary disease Chronic rhinitis Depression Dyslipidemia Former smoker Generalized anxiety disorder Generalized osteoarthritis of multiple sites GERD (gastroesophageal reflux disease) Hearing deficit L EAR Hiatal hernia Hypertension Hypothyroidism Internal hemorrhoids Knee pain, left Laryngopharyngeal reflux Lumbar radiculopathy Multiple lipomas Multiple pulmonary nodules Nontoxic multinodular goiter Osteoarthritis Poor historian Pulmonary embolism Transient ischemic attack (TIA) 2020 Tricuspid regurgitation Tubular adenoma of colon VAIN (vaginal intraepithelial neoplasia) remote, 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 Surgical History H/O removal of cyst R ARM History of arthroscopy KNEE-UNSURE WHICH ONE History of breast biopsy R BREAST-BENIGN History of cataract surgery RT/LT History of cholecystectomy History of colonoscopy History of dilatation and curettage History of esophagogastroduodenoscopy (EGD) w/ dilation History of eye surgery Left History of oral surgery History of thyroidectomy, subtotal L SIDE History of tonsillectomy History of tooth extraction History of total abdominal hysterectomy and bilateral salpingo-oophorectomy History of tubal ligation S/P excision of lipoma (08/08/19) Bilateral Arm Lipomas Excision (x7)(Bilateral) Dr. Asencio 08-08-19 Family History Grandmother Family history of diabetes mellitus MATERNAL Mother Family hx of colon cancer Colorectal cancer Father Coronary heart disease Daughter Slow to wake up after anesthesia Denies family history of Ovarian cancer Prostate cancer Myocardial infarction Breast cancer Social History Smoking Status: Former smoker Tobacco Type: Cigarettes Second Hand Exposure: Yes; Hx Alcohol Use: No Hx Substance Use: No Preferred Language: Malagasy Communication Ability: Effective Payroll Assistant Required: No Beliefs That Will Affect Care: None Current Living Situation: Family Current Living Situation Comment: Daughter lives with her current occupational status: retired Feels Safe at Home: Yes Dental Care, Regularly: Yes Physical Activity Frequency: Does not Exercise Seatbelt Use: always Sunscreen Use: No Assistive Devices: Glasses Review of Systems A total of 10 systems reviewed and were otherwise negative Physical Exam Vital Signs Vital Signs - 24 hr 12/25/21 07:24 12/25/21 07:48 12/25/21 07:48 Temperature 37.5 C Temperature Source Skin Pulse Rate 102 H Pulse Rate [Right Finger] Pulse Rhythm Pulse Rhythm [Right Finger] Pulse Strength [Right Finger] Respiratory Rate 36 H Respiratory Effort / Characteristics Non-Labored Spontaneous Spontaneous Respiratory Depth Normal Shallow Respiratory Pattern Regular Blood Pressure 132/61 Blood Pressure [Right Arm] Blood Pressure Mean 84 Blood Pressure Mean [Right Arm] Blood Pressure Position [Right Arm] Pulse Oximetry 88 L Oxygen Delivery Method Room Air Room Air Room Air Sepsis Recent Fever Within 48 Hours No Sepsis New/Unexplained Change in Mental Status N/A Sepsis Action Taken by Nursing No Action Required 12/25/21 07:56 12/25/21 08:07 12/25/21 08:12 Temperature Temperature Source Pulse Rate 89 Pulse Rate [Right Finger] 90 Pulse Rhythm Regular Pulse Rhythm [Right Finger] Regular Pulse Strength [Right Finger] Normal Respiratory Rate 20 19 21 Respiratory Effort / Characteristics Non-Labored Non-Labored Respiratory Depth Normal Respiratory Pattern Regular Blood Pressure Blood Pressure [Right Arm] 184/81 H Blood Pressure Mean Blood Pressure Mean [Right Arm] 115 Blood Pressure Position [Right Arm] Lying Pulse Oximetry 94 95 95 Oxygen Delivery Method Room Air Room Air Room Air Sepsis Recent Fever Within 48 Hours Sepsis New/Unexplained Change in Mental Status Sepsis Action Taken by Nursing 12/25/21 08:13 12/25/21 08:15 12/25/21 08:30 Temperature Temperature Source Pulse Rate Pulse Rate [Right Finger] 89 90 91 H Pulse Rhythm Pulse Rhythm [Right Finger] Regular Pulse Strength [Right Finger] Normal Normal Normal Respiratory Rate 21 21 21 Respiratory Effort / Characteristics Non-Labored Non-Labored Non-Labored Respiratory Depth Normal Normal Normal Respiratory Pattern Regular Regular Regular Blood Pressure Blood Pressure [Right Arm] 157/97 H Blood Pressure Mean Blood Pressure Mean [Right Arm] 117 Blood Pressure Position [Right Arm] Lying Pulse Oximetry 95 95 95 Oxygen Delivery Method Room Air Room Air Room Air Sepsis Recent Fever Within 48 Hours Sepsis New/Unexplained Change in Mental Status Sepsis Action Taken by Nursing 12/25/21 08:45 12/25/21 08:51 12/25/21 09:00 Temperature Temperature Source Pulse Rate Pulse Rate [Right Finger] 90 Pulse Rhythm Pulse Rhythm [Right Finger] Pulse Strength [Right Finger] Normal Respiratory Rate 21 21 24 Respiratory Effort / Characteristics Non-Labored Non-Labored Respiratory Depth Normal Respiratory Pattern Regular Blood Pressure Blood Pressure [Right Arm] Blood Pressure Mean Blood Pressure Mean [Right Arm] Blood Pressure Position [Right Arm] Pulse Oximetry 95 95 95 Oxygen Delivery Method Room Air Room Air Room Air Sepsis Recent Fever Within 48 Hours Sepsis New/Unexplained Change in Mental Status Sepsis Action Taken by Nursing 12/25/21 09:00 12/25/21 10:00 12/25/21 10:00 Temperature Temperature Source Pulse Rate Pulse Rate [Right Finger] 90 88 Pulse Rhythm Pulse Rhythm [Right Finger] Regular Regular Pulse Strength [Right Finger] Normal Normal Respiratory Rate 21 19 18 Respiratory Effort / Characteristics Non-Labored Spontaneous Non-Labored Spontaneous Non-Labored Spontaneous Respiratory Depth Normal Normal Respiratory Pattern Regular Blood Pressure Blood Pressure [Right Arm] 127/65 151/87 H Blood Pressure Mean Blood Pressure Mean [Right Arm] 85 108 Blood Pressure Position [Right Arm] Lying Pulse Oximetry 93 98 96 Oxygen Delivery Method Room Air Room Air Room Air Sepsis Recent Fever Within 48 Hours Sepsis New/Unexplained Change in Mental Status Sepsis Action Taken by Nursing 12/25/21 09:15 12/25/21 09:30 12/25/21 09:30 Temperature Temperature Source Pulse Rate Pulse Rate [Right Finger] 89 85 Pulse Rhythm Pulse Rhythm [Right Finger] Regular Pulse Strength [Right Finger] Normal Normal Respiratory Rate 18 22 20 Respiratory Effort / Characteristics Non-Labored Spontaneous Non-Labored Spontaneous Non-Labored Spontaneous Respiratory Depth Normal Normal Respiratory Pattern Regular Regular Blood Pressure Blood Pressure [Right Arm] Blood Pressure Mean Blood Pressure Mean [Right Arm] Blood Pressure Position [Right Arm] Pulse Oximetry 95 95 95 Oxygen Delivery Method Room Air Room Air Room Air Sepsis Recent Fever Within 48 Hours Sepsis New/Unexplained Change in Mental Status Sepsis Action Taken by Nursing CONSTITUTIONAL/VITAL SIGNS: Reviewed / noted above. GENERAL: Non-toxic in appearance. INTEGUMENTARY: Warm, dry, and [place]. HEAD: Normocephalic. EYES: without scleral icterus or trauma. ENT/OROPHARYNX: clear and moist. LYMPHADENOPATHY/NECK: Is supple without lymphadenopathy or meningismus. RESPIRATORY: Clear diminished on the right compared to left to auscultation bilaterally. No increased work of breathing. CARDIOVASCULAR: Regular rate and rhythm. GI/ABDOMEN: Soft and nontender. No organomegaly or pulsatile mass. EXTREMITIES: Warm and well perfused. BACK: No CVA tenderness. NEUROLOGICAL: Intact without focal deficits. PSYCHIATRIC: normal affect. MUSCULOSKELETAL: Normally developed with good muscle tone. Small dog sitting on bed with patient. TRIAGE NURSING DOCUMENTATION REVIEWED. Course Administered Medications Discontinued Medications Cefepime HCl (Cefepime 2,000 Mg/20 Ml Vial) Confirm Administered Dose 2,000 mg .ROUTE .STK-MED ONE Stop: 12/25/21 10:24 Last Admin: 12/25/21 10:30 Dose: Not Given Documented By: CDV Sodium Chloride (Nss 1000ml) 1,000 mls @ 999 mls/hr IV .Q1H1M LEXX Stop: 12/25/21 09:00 Last Admin: 12/25/21 09:07 Dose: 999 mls/hr Documented By: CDV Cefepime HCl (Maxipime) 2,000 mg in 20 mls @ 5 mls/min IV NOW STA; Protocol Stop: 12/25/21 07:50 Last Admin: 12/25/21 10:30 Dose: 5 mls/min Documented By: CDV Lorazepam (Lorazepam 2 Mg/1 Ml Vial) 0.5 mg IV NOW STA; Protocol Stop: 12/25/21 10:14 Last Admin: 12/25/21 10:26 Dose: 0.5 mg Documented By: CDV Medical Decision Making Differential Diagnosis The differential was considered includes acute myocardial infarction, acute coronary syndrome, myocarditis, pericarditis, pericardial effusions /tamponad, esophageal perforation, pulmonary embolism, pneumonia, pneumothorax, cardiomyopathy, congestive heart, anemia , COPD/asthma exacerbation. Medical Records Attestation: I reviewed the patient's medical records. Home Medications Current Medication List: was personally reviewed by me Laboratory Data Attestation: I reviewed the patient's lab results. Result diagrams: 12/25/21 08:20 12/25/21 08:20 Lab Results 12/25/21 12/25/21 12/25/21 Range/Units 08:05 08:20 08:20 WBC 11.48 H (4.8-10.8) K/ul RBC 4.00 (3.93-5.22) M/uL Hgb 10.6 L (12.0-16.0) g/dl Hct 33.9 L (34.1-44.9) % MCV 84.8 (80.0-100.0) fL MCH 26.5 (25.0-34.0) pg MCHC 31.3 L (32.0-36.0) g/dL RDW Std Deviation 46.2 (36.4-46.3) fL RDW Coeff of Azam 15.1 H (11.5-14.5) % Plt Count 386 (130-400) K/uL MPV 8.6 L (9.4-12.3) fL Immature Gran % (Auto) 1.0 % Neut % (Auto) 76.7 % Lymph % (Auto) 7.1 % [place] % (Auto) 14.1 % Eos % (Auto) 0.8 % Baso % (Auto) 0.3 % Neut # (Auto) 8.82 H (1.4-6.5) K/uL Lymph # (Auto) 0.81 L (1.2-3.4) K/uL [place] # (Auto) 1.62 H (0.24-0.82) K/uL Eos # (Auto) 0.09 (0-0.50) K/uL Baso # (Auto) 0.03 (0-0.2) K/uL Immature Gran # (Auto) 0.11 H (0.00-0.02) K/uL PT 12.0 (9.0-12.0) Seconds INR 1.1 (0.9-1.1) APTT 36.4 H (21.0-31.0) Seconds PTT Ratio 1.3 Sodium (136-145) mmol/L Potassium (3.5-5.1) mmol/L Chloride (98-107) mmol/L Carbon Dioxide (21-32) mmol/L Anion Gap (3-11) BUN (6-23) mg/dl Creatinine (0.6-1.2) mg/dl Est Cr Clr Drug Dosing ml/min Est GFR ( Amer) ml/min Est GFR (Non-Af Amer) ml/min BUN/Creatinine Ratio (10-20) Glucose (70-99(Fasting)) mg/dl Lactate (0.4-2.0) mmol/L Calcium (8.5-10.1) mg/dl Magnesium (1.7-2.4) mg/dl Total Bilirubin (0.2-1.0) mg/dl AST (13-39) U/L ALT (7-52) U/L Alkaline Phosphatase (34-104) U/L Troponin I High Sens (0-14) pg/ml Total Protein (6.0-8.3) gm/dl Albumin (3.4-5.0) gm/dl Globulin (2.5-4.0) gm/dl Albumin/Globulin Ratio (0.9-2) Adenovirus (PCR) Not Detected (NotDetected) B. pertussis DNA (PCR) Not Detected (NotDetected) B.parapertussis DNA PCR Not Detected (NotDetected) C. pneumoniae DNA (PCR) Not Detected (NotDetected) Coronavirus OC43 (PCR) Not Detected (NotDetected) Coronavirus HKU1 (PCR) Not Detected (NotDetected) Coronavirus 229E (PCR) Not Detected (NotDetected) SARS-CoV-2 (PCR) Not Detected (NotDetected) Coronavirus NL63 (PCR) Not Detected (NotDetected) Human Metapneumovir PCR Not Detected (NotDetected) Influenza Type A (PCR) Not Detected (NotDetected) Influenza Type B (PCR) Not Detected (NotDetected) M. pneumoniae (PCR) Not Detected (NotDetected) Parainfluenza 1 (PCR) Not Detected (NotDetected) Parainfluenza 2 (PCR) Not Detected (NotDetected) Parainfluenza 3 (PCR) Not Detected (NotDetected) Parainfluenza 4 (PCR) Not Detected (NotDetected) RSV (PCR) Not Detected (NotDetected) Entero/Rhino (PCR) Not Detected (NotDetected) 12/25/21 12/25/21 Range/Units 08:20 08:20 WBC (4.8-10.8) K/ul RBC (3.93-5.22) M/uL Hgb (12.0-16.0) g/dl Hct (34.1-44.9) % MCV (80.0-100.0) fL MCH (25.0-34.0) pg MCHC (32.0-36.0) g/dL RDW Std Deviation (36.4-46.3) fL RDW Coeff of Azam (11.5-14.5) % Plt Count (130-400) K/uL MPV (9.4-12.3) fL Immature Gran % (Auto) % Neut % (Auto) % Lymph % (Auto) % [place] % (Auto) % Eos % (Auto) % Baso % (Auto) % Neut # (Auto) (1.4-6.5) K/uL Lymph # (Auto) (1.2-3.4) K/uL [place] # (Auto) (0.24-0.82) K/uL Eos # (Auto) (0-0.50) K/uL Baso # (Auto) (0-0.2) K/uL Immature Gran # (Auto) (0.00-0.02) K/uL PT (9.0-12.0) Seconds INR (0.9-1.1) APTT (21.0-31.0) Seconds PTT Ratio Sodium 136 (136-145) mmol/L Potassium 3.8 (3.5-5.1) mmol/L Chloride 101 (98-107) mmol/L Carbon Dioxide 27 (21-32) mmol/L Anion Gap 8 (3-11) BUN 10 (6-23) mg/dl Creatinine 0.76 (0.6-1.2) mg/dl Est Cr Clr Drug Dosing 67.5 ml/min Est GFR ( Amer) 89.6 ml/min Est GFR (Non-Af Amer) 77.3 ml/min BUN/Creatinine Ratio 13.2 (10-20) Glucose 110 H (70-99(Fasting)) mg/dl Lactate 1.3 (0.4-2.0) mmol/L Calcium 9.0 (8.5-10.1) mg/dl Magnesium 1.6 L (1.7-2.4) mg/dl Total Bilirubin 0.4 (0.2-1.0) mg/dl AST 94 H (13-39) U/L ALT 78 H (7-52) U/L Alkaline Phosphatase 93 (34-104) U/L Troponin I High Sens 14.1 H D (0-14) pg/ml Total Protein 6.5 (6.0-8.3) gm/dl Albumin 3.1 L (3.4-5.0) gm/dl Globulin 3.4 (2.5-4.0) gm/dl Albumin/Globulin Ratio 0.9 (0.9-2) Adenovirus (PCR) (NotDetected) B. pertussis DNA (PCR) (NotDetected) B.parapertussis DNA PCR (NotDetected) C. pneumoniae DNA (PCR) (NotDetected) Coronavirus OC43 (PCR) (NotDetected) Coronavirus HKU1 (PCR) (NotDetected) Coronavirus 229E (PCR) (NotDetected) SARS-CoV-2 (PCR) (NotDetected) Coronavirus NL63 (PCR) (NotDetected) Human Metapneumovir PCR (NotDetected) Influenza Type A (PCR) (NotDetected) Influenza Type B (PCR) (NotDetected) M. pneumoniae (PCR) (NotDetected) Parainfluenza 1 (PCR) (NotDetected) Parainfluenza 2 (PCR) (NotDetected) Parainfluenza 3 (PCR) (NotDetected) Parainfluenza 4 (PCR) (NotDetected) RSV (PCR) (NotDetected) Entero/Rhino (PCR) (NotDetected) Imaging Data Radiologist's Impression: Chest X-Ray 12/25/21 07:47 XR chest 1V portable CLINICAL HISTORY: SEPSIS COMPARISON STUDY: Chest radiograph and chest CT December 24, 2021. FINDINGS: There is no pneumothorax or pleural effusion. Underlying emphysema is better depicted on chest CT of December 24, 2021. Dense focus of consolidation within the superior segment of the right lower lobe is again noted. Additional right lower lobe airspace opacity has slightly progressed. Minimal left basilar opacity is similar to prior exam. IMPRESSION: 1. Extensive right lower lobe pneumonia, minimally increased since prior exam. A follow-up chest CT in 2 months to ensure resolution is recommended. 2. Emphysema. ACT 112: Negative or not required by law. Electronically signed by: Mono Urias M.D. 12/25/2021 8:10 AM ECG Data Attestation: I personally reviewed and interpreted this ECG as follows: Additional Comments: 12 Lead EKG: Per my interpretation shows a normal sinus rhythm at a rate of 94. No ST elevation. No PVCs. Normal QTC. MDM Narrative 76-year-old female presents with ongoing shortness of breath. She was found to have a large right lower lobe pneumonia on CT scan yesterday. She refused to be admitted yesterday and signed out AGAINST MEDICAL ADVICE because she did not have anyone to take care of her dog. Today she brought her dog in with her and wants to be admitted. Iron saturations on triage were 88% on room air. She does not use home oxygen. Vital signs reveal tachypnea with a respiratory rate of 36. Heart rate was 102. The patient's white blood cell count is slightly elevated at 11.48. Hemoglobin is little better than yesterday at 10.6. Chemistry panel was unremarkable. Bio fire testing was negative. Chest x-ray suggested a right lower lobe pneumonia. The patient was seen by the hospitalist service for further inpatient evaluation and care. She was treated with IV antibiotics in the form of cefepime as well as given some IV fluids. Impression & Plan RLL pneumonia, Hypoxia Discharge Plan Visit Data Chief Complaint: Respiratory Problems Stated Complaint: DIAGNOSED W/PNEUMONIA ED Provider: John Head Discharge Problem: RLL pneumonia, Hypoxia Patient Disposition: Admitted As Inpatient Forms Stand Alone Forms: [facility] Prescriptions Prescriptions: No Action multivitamin Tablet 1 tab PO QAM Qty: 0 fluticasone propionate [Flonase Allergy Relief] 50 mcg/actuation Sarah,Suspension 2 spray SANTY DAILY PRN (Reason: Nasal Congestion) Qty: 0 Probiotic 5 billion cell Capsule, Sprinkle 1 cap PO QAM Qty: 0 aspirin 81 mg tablet,delayed release (DR/EC) 81 mg PO QAM Qty: 90 3RF imipramine HCl 50 mg tablet 150 mg PO HS Qty: 270 3RF levothyroxine [Synthroid] 50 mcg tablet 50 mcg PO DAILY Qty: 90 3RF Rx Instructions: 0300 pantoprazole 40 mg tablet,delayed release (DR/EC) 40 mg PO BID Qty: 180 1RF Rx Instructions: TAKE 1 TABLET BY MOUTH TWICE DAILY 30 MINS BEFORE BREAKFAST AND DINNER venlafaxine 75 mg capsule,extended release 24hr 75 mg PO HS Qty: 90 3RF alprazolam [Xanax] 1 mg tablet 2 mg PO HS Qty: 180 0RF Rx Instructions: May take 1 additional tablet per day as needed albuterol sulfate 90 mcg/actuation HFA aerosol inhaler 1 - 2 puff INH Q4H PRN (Reason: SOB) Qty: 3 1RF Rx Instructions: Inhale 1 to 2 puffs every 4-6 hours as needed. azelastine 137 mcg (0.1 %) aerosol,spray 2 spray INTNAS BID Qty: 3 1RF Eliquis 5 mg tablet 5 mg PO BID Qty: 180 3RF bupropion HCl [Wellbutrin XL] 150 mg tablet extended release 24 hr 150 mg PO QAM Qty: 90 3RF venlafaxine 150 mg capsule,extended release 24hr 150 mg PO QAM Qty: 90 1RF Trelegy Ellipta 100-62.5-25 mcg blister with device 1 inh inhalation DAILY Qty: 60 3RF Neuriva Plus 0.85 mg-200 mcg-1.2 mcg tablet,chewable 2 tab PO indapamide 1.25 mg tablet 1.25 mg PO QAM melatonin 10 mg tablet 10 mg PO HS PRN atorvastatin 80 mg tablet 80 mg PO DAILY Qty: 90 3RF famotidine 40 mg tablet 40 mg PO DAILY Qty: 90 3RF potassium chloride 8 mEq tablet extended release 8 meq PO QAM Qty: 90 3RF fluconazole [Diflucan] 150 mg tablet 150 mg PO Q3D PRN (Reason: Yeast infection) Qty: 2 0RF Rx Instructions: Do not take Xanax with this medication amoxicillin-pot clavulanate 875-125 mg tablet 1 tab PO Q12H Qty: 20 0RF Saccharomyces boulardii [Florastor] 250 mg capsule 250 mg PO BID Qty: 20 0RF Rx Instructions: swallow whole Referrals Referrals: ,Pravin Isaac MD [Primary Care Provider] -
[2021-12-25] MEDS ORDERED: SODIUM CHLORIDE 0.9% 1000ML 1,000 ML IV SCH (08:00)
--- NOTE | 2021-12-25 08:12 | XRay Report ---
XR chest 1V portable CLINICAL HISTORY: SEPSIS COMPARISON STUDY: Chest radiograph and chest CT December 24, 2021. FINDINGS: There is no pneumothorax or pleural effusion. Underlying emphysema is better depicted on est CT of December 24, 2021. Dense focus of consolidation within the superior segment of the right lower lobe is again noted. Additional right lower lobe airspace opacity has slightly progressed. Minimal le ft basilar opacity is similar to prior exam. IMPRESSION: 1. Extensive right lower lobe pneumonia, minimally increased since prior exam. A follow-up chest CT i n 2 months to ensure resolution is recommended. 2. Emphysema. ACT 112: Negative or not required by law. Electronically signed by: Mono Urias M.D. 12/25/2021 8:10 AM
[2021-12-25 08:55] LABS: Basophils # (auto) 0.03 K/uL (0-0.2); Basophils % (auto) 0.3 %; Eosinophils # (auto) 0.09 K/uL (0-0.50); Eosinophils % (auto) 0.8 %; Hematocrit (blood only) 33.9 % (34.1-44.9); Hemoglobin 10.6 g/dl (12.0-16.0); Immature Granulocytes # (auto) 0.11 K/uL (0.00-0.02); Lymphocytes # (auto) 0.81 K/uL (1.2-3.4); Lymphocytes % (auto) 7.1 %; Mean Corpuscular Hemoglobin 26.5 pg (25.0-34.0); Mean Corpuscular Hgb Conc 31.3 g/dL (32.0-36.0); Mean Corpuscular Volume 84.8 fL (80.0-100.0); Mean Platelet Volume 8.6 fL (9.4-12.3); Monocytes # (auto) 1.62 K/uL (0.24-0.82); Monocytes % (auto) 14.1 %; Neutrophils # (auto) 8.82 K/uL (1.4-6.5); Neutrophils % (auto) 76.7 %; Platelet Count 386 K/uL (130-400); RDW Coefficient of Variation 15.1 % (11.5-14.5); RDW Standard Deviation 46.2 fL (36.4-46.3); White Blood Count 11.48 K/ul (4.8-10.8)
[2021-12-25 09:10] LABS: INR 1.1 (0.9-1.1); Partial Thromboplastin Ratio 1.3; Partial Thromboplastin Time 36.4 Seconds (21.0-31.0)
--- NOTE | 2021-12-25 09:23 | History & Physical Report ---
Date of Service December 25, 2021 Assessment & Plan (1) RLL pneumonia: Plan: Pt has right lower lobe infiltrate with suggestion of necrosis, has history of tobacco use, copd and baseline pulmonary nodules, typically follows with Dr Sotomayor Cefepime/Azithromycin, blood cultures obtained MRSA nasal swab test Biofire pending on admission but covid neg 12/24/21 (2) COPD (chronic obstructive pulmonary disease): Plan: pt will continue on trelegy has acute on chronic respiratory failure with hypoxia, will need a 2 step (3) Anemia: Plan: baseline anemia, hgb is stable, tsh normal check iron B12 folic acid (4) Chronic anticoagulation: Plan: Pt is on chronic apixaban but with her memory issues will be concerned that non compliance may be more at play then medication failure will convert to iv therapeutic heparin in case procedure is warranted CTA neck has some concerns for non occlusive thrombus in the left proximal ICA, will continue anticoagulation CT chest shows artifact vs PE in segmental branch of RUL (5) Executive function deficit: Plan: pt has been tested and confirmed (6) Hypothyroidism: Plan: remains on synthroid, tsh tested 12/24 and normal (7) Depression: Plan: Continue Effexor, buproprion, imiparamine, has been tapering off of benzodiazep ade according to pcp History of Present Illness Primary Care Provider: Pravin Drew MD Patient is a poor historian. Patient returns after presenting on 12/24/2021 where she was diagnosed with a right lower lobe pneumonia with necrosis. He is a history of COPD and lung nodules followed by Dr. Sotomayor and typically takes Trelegy. During her ER visit she was found to be hypoxemic however she left AGAINST MEDICAL ADVICE due to concerns for care of her pet. Patient returns on 12/25/2021 with her pet. She is still pleasantly confused at times. She states that she is coughing to the point of urinary incontinence. She denies expectorating mucus. She denies fevers. In bed on room air she was 94% she does desaturate with movements. Reportedly her respiratory was 36 when she walked in. Images is consistent with right lower lobe pneumonia. COVID testing on 730 was negative Allergies Allergy/AdvReac Type Severity Reaction Status Date / Time adhesive tape AdvReac Mild Rash Verified 11/04/21 11:23 amoxicillin AdvReac Mild YEAST Verified 11/04/21 11:23 INFECTIONS levofloxacin AdvReac Mild NERVOUS Verified 11/04/21 11:23 Home Medications Medication Instructions Recorded Confirmed Type Lactobacil.acidophilus-Bifido.animalis 1 cap PO QAM ##0 11/08/16 11/04/21 History 5 billion cell sprinkle capsule (Probiotic) fluticasone propionate 50 2 spray SANTY DAILY PRN Nasal 11/08/16 11/04/21 History mcg/actuation nasal Congestion ##0 spray,suspension (Flonase Allergy Relief) multivitamin 1 tab PO QAM #0 tabs 11/08/16 11/04/21 History albuterol sulfate 90 mcg/actuation 1 - 2 puff inhalation Q4H PRN SOB 06/14/20 11/04/21 Rx aerosol inhaler #3 ea azelastine 137 mcg (0.1 %) nasal 2 spray intranasal BID #3 ea 06/14/20 11/04/21 Rx spray aerosol aspirin 81 mg tablet,delayed 81 mg PO QAM #90 tabs 03/11/21 11/04/21 Rx release imipramine HCl 50 mg tablet 150 mg PO HS #270 tabs 05/11/21 11/04/21 Rx levothyroxine 50 mcg tablet 50 mcg PO DAILY #90 tabs 05/19/21 11/04/21 Rx (Synthroid) apixaban 5 mg tablet (Eliquis) 5 mg PO BID #180 tabs 06/17/21 11/04/21 Rx bupropion HCl 150 mg 24 hr tablet, 150 mg PO QAM #90 tabs 06/17/21 11/04/21 Rx extended release (Wellbutrin XL) venlafaxine 150 mg 150 mg PO QAM #90 caps 06/17/21 11/04/21 Rx capsule,extended release 24 hr fluticasone fur. 100 mcg-umeclid 1 inh inhalation DAILY #60 ea 07/01/21 11/04/21 Rx 62.5 mcg-vilant 25 mcg inhalat.powder (Trelegy Ellipta) fluconazole 150 mg tablet 150 mg PO Q3D PRN Yeast infection 09/30/21 11/04/21 Rx (Diflucan) 2 doses #2 tabs pantoprazole 40 mg tablet,delayed 40 mg PO BID #180 tabs 05/10/22 06/10/22 Rx release venlafaxine 75 mg capsule,extended 75 mg PO HS #90 caps 10/25/21 11/04/21 Rx release 24 hr B6 0.85 mg-folic 200 2 tab PO 10/26/21 11/04/21 History yno-[id number]-aclmvi-qkwrpzpsexlj oral chewable tablet (Neuriva Plus) atorvastatin 80 mg tablet 80 mg PO DAILY #90 tabs 10/26/21 11/04/21 Rx famotidine 40 mg tablet 40 mg PO DAILY #90 tabs 10/26/21 11/04/21 Rx indapamide 1.25 mg tablet 1.25 mg PO QAM 10/26/21 11/04/21 History melatonin 10 mg tablet 10 mg PO HS PRN 10/26/21 11/04/21 History potassium chloride 8 mEq 8 meq PO QAM #90 tabs 10/26/21 11/04/21 Rx tablet,extended release alprazolam 1 mg tablet (Xanax) 2 mg PO HS #180 tabs 12/12/21 Rx Saccharomyces boulardii 250 mg 250 mg PO BID #20 caps 12/24/21 Rx capsule (Florastor) amoxicillin 875 mg-potassium 1 tab PO Q12H diverticulitis #20 12/24/21 Rx clavulanate 125 mg tablet tabs Past Med/Surg History Medical History Abnormal chest CT bl pulmonary lesions - "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 Sotomayor and Dr. Hayden monitoring Acquired deviated nasal septum Cardiac murmur pt could not confirm - does not follow w/ cardio Chronic obstructive pulmonary disease Chronic rhinitis Depression Dyslipidemia Former smoker Generalized anxiety disorder Generalized osteoarthritis of multiple sites GERD (gastroesophageal reflux disease) Hearing deficit L EAR Hiatal hernia Hypertension Hypothyroidism Internal hemorrhoids Knee pain, left Laryngopharyngeal reflux Lumbar radiculopathy Multiple lipomas Multiple pulmonary nodules Nontoxic multinodular goiter Osteoarthritis Poor historian Pulmonary embolism Transient ischemic attack (TIA) 2020 Tricuspid regurgitation Tubular adenoma of colon VAIN (vaginal intraepithelial neoplasia) remote, 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 Surgical History H/O removal of cyst R ARM History of arthroscopy KNEE-UNSURE WHICH ONE History of breast biopsy R BREAST-BENIGN History of cataract surgery RT/LT History of cholecystectomy History of colonoscopy History of dilatation and curettage History of esophagogastroduodenoscopy (EGD) w/ dilation History of eye surgery Left History of oral surgery History of thyroidectomy, subtotal L SIDE History of tonsillectomy History of tooth extraction History of total abdominal hysterectomy and bilateral salpingo-oophorectomy History of tubal ligation S/P excision of lipoma (08/08/19) Bilateral Arm Lipomas Excision (x7)(Bilateral) Dr. Asencio 08-08-19 Family History Grandmother Family history of diabetes mellitus MATERNAL Mother Family hx of colon cancer Colorectal cancer Father Coronary heart disease Daughter Slow to wake up after anesthesia Denies family history of Ovarian cancer Prostate cancer Myocardial infarction Breast cancer Social History Smoking Status: Former smoker Tobacco Type: Cigarettes Second Hand Exposure: Yes; Hx Alcohol Use: No Hx Substance Use: No Preferred Language: Kyrgyz Communication Ability: Effective Corset Fitter Required: No Beliefs That Will Affect Care: None Current Living Situation: Alone Current Living Situation Comment: Daughter lives with her current occupational status: retired Feels Safe at Home: Yes Dental Care, Regularly: Yes Physical Activity Frequency: Does not Exercise Seatbelt Use: always Sunscreen Use: No Assistive Devices: Cane and Glasses Review of Systems Review of Systems: Mild distress and fatigue no headache, no visual changes no speech or swallowing issues no chest pain, pressure or palpitations shortness of breath, productive cough no wheezes no abdominal pain, nausea or vomiting, diarrhea or constipation no dysuria, hematuria or frequency no focal joint pain or swelling no back pain, CVA tenderness or radicular pain diffuse bruising associated with falls and chronic anticoagulation no focal signs of weakness or numbness or altered sensation no complaints of anxiety or depression.. Physical Exam Physical Exam: The patient appeared well nourished and normally developed. it is obvious that she has some cognitive impairment Vital signs as documented. Head exam is normocephalic atraumatic Neck is without JVD, thyromegaly, or carotid bruits. Lungs are diminshed breath sounds and coarse crackles to right base Cardiac exam, Rhythm is regular.. No murmurs, rubs or gallops. Abdominal exam reveals normal bowel sounds, soft non tender, no masses Extremities are nonedematous and both pedal pulses are present Neurologic exam is alert and oriented x2, no focal loss of strength or sensation Skin is with various small bruised from chronic anticoagulation Psychologically is without concerns impaired higher cognitive function and depression.. Results & Data Results & Data ([facility]) Vital Signs (Past 12 Hours) Vital Signs Temp Pulse Pulse Resp BP BP Pulse Ox 12/25/21 09:00 90 21 127/65 93 12/25/21 09:00 24 95 12/25/21 08:51 21 95 12/25/21 08:45 90 21 95 12/25/21 08:30 91 H 21 95 12/25/21 08:15 90 21 95 12/25/21 08:13 89 21 157/97 H 95 12/25/21 08:12 89 21 95 12/25/21 08:07 90 19 184/81 H 95 12/25/21 07:56 20 94 12/25/21 07:48 12/25/21 07:48 12/25/21 07:24 99.5 F 102 H 36 H 132/61 88 L O2 Del Method 12/25/21 09:00 Room Air 12/25/21 09:00 Room Air 12/25/21 08:51 Room Air 12/25/21 08:45 Room Air 12/25/21 08:30 Room Air 12/25/21 08:15 Room Air 12/25/21 08:13 Room Air 12/25/21 08:12 Room Air 12/25/21 08:07 Room Air 12/25/21 07:56 Room Air 12/25/21 07:48 Room Air 12/25/21 07:48 Room Air 12/25/21 07:24 Room Air Diagnostic Findings Chest X-Ray 12/25/21 07:47 XR chest 1V portable CLINICAL HISTORY: SEPSIS COMPARISON STUDY: Chest radiograph and chest CT December 24, 2021. FINDINGS: There is no pneumothorax or pleural effusion. Underlying emphysema is better depicted on chest CT of December 24, 2021. Dense focus of consolidation within the superior segment of the right lower lobe is again noted. Additional right lower lobe airspace opacity has slightly progressed. Minimal left basilar opacity is similar to prior exam. IMPRESSION: 1. Extensive right lower lobe pneumonia, minimally increased since prior exam. A follow-up chest CT in 2 months to ensure resolution is recommended. 2. Emphysema. Electronically signed by: Mono Urias M.D. 12/25/2021 8:10 AM ECG Additional Comments: nsr no acute changes PG Care Time/CCT Total # of Minutes Spent Total Time Spent with Patient: Total time spent is greater than 50% in coordination of care (as documented) at patient's floor/unit and/or counseling patient: Coding Level of Care Code 75187 Initial Inpt Care Lvl 3 Diagnoses RLL pneumonia J18.9 COPD (chronic obstructive pulmonary disease) J44.9 Anemia D64.9 Chronic anticoagulation Z79.01 Executive function deficit R41.844 Hypothyroidism E03.9 Depression F32.9
[2021-12-25 09:25] LABS: Troponin I High Sensitivity 14.1 pg/ml (0-14)
[2021-12-25 09:28] LABS: Adenovirus PCR Not Detected (NotDetected); Bordetella parapertussis PCR Not Detected (NotDetected); Bordetella pertussis PCR Not Detected (NotDetected); Chlamydia pneumoniae PCR Not Detected (NotDetected); Coronavirus 229E PCR Not Detected (NotDetected); Coronavirus CoV-2 (COVID19)PCR Not Detected (NotDetected); Coronavirus HKU1 PCR Not Detected (NotDetected); Coronavirus NL63 PCR Not Detected (NotDetected); Coronavirus OC43PCR Not Detected (NotDetected); Human Metapneumovirus PCR Not Detected (NotDetected); Influenza A PCR Not Detected (NotDetected); Influenza B PCR Not Detected (NotDetected); Mycoplasma pneumoniae PCR Not Detected (NotDetected); Parainfluenza Virus 1 PCR Not Detected (NotDetected); Parainfluenza Virus 2 PCR Not Detected (NotDetected); Parainfluenza Virus 3 PCR Not Detected (NotDetected); Parainfluenza Virus 4 PCR Not Detected (NotDetected); Respiratory Syncytial VirusPCR Not Detected (NotDetected); Rhinovirus/Enterovirus PCR Not Detected (NotDetected)
[2021-12-25 09:53] LABS: Albumin Globulin Ratio 0.9 (0.9-2); Albumin Level 3.1 gm/dl (3.4-5.0); BUN Creatinine Ratio 13.2 (10-20); Bilirubin,Total 0.4 mg/dl (0.2-1.0); Creatinine Clr Calc Pharmacy 67.5 ml/min; Est GFR (African American) 89.6 ml/min; Est GFR (Non-African American) 77.3 ml/min; Globulin 3.4 gm/dl (2.5-4.0); Magnesium 1.6 mg/dl (1.7-2.4); Potassium 3.8 mmol/L (3.5-5.1); Total Protein 6.5 gm/dl (6.0-8.3)
[2021-12-25] MEDS ORDERED: LORazepam 2 MG/2 ML SYR IV STA (10:13)
[2021-12-25] MEDS ORDERED: CEFEPIME 2,000 MG/20 ML VIAL ONE (10:23)
[2021-12-25] MEDS ORDERED: APIXABAN 5 MG TABLET PO SCH (14:24)
[2021-12-25] MEDS ORDERED: MAGNESIUM SULFATE / D5W 1 GM/100 ML BAG IV ONE (14:24)
[2021-12-25] MEDS ORDERED: ACETAMINOPHEN 325 MG TAB PO PRN (15:36)
[2021-12-25] MEDS ORDERED: ONDANSETRON INJ 2 MG/ML 2 ML VIAL IV PRN (15:36)
[2021-12-25] MEDS ORDERED: ALUMINUM/MAGNESIUM SUSP 30 ML UDC PO PRN (15:36)
[2021-12-25] MEDS: AZITHROMYCIN 500 MG in DEXTROSE 5% 250 ML IV SCH (15:43)
[2021-12-25 16:44] LABS: Basophils # (auto) 0.03 K/uL (0-0.2); Basophils % (auto) 0.3 %; Eosinophils # (auto) 0.08 K/uL (0-0.50); Eosinophils % (auto) 0.7 %; Hematocrit (blood only) 29.1 % (34.1-44.9); Hemoglobin 9.3 g/dl (12.0-16.0); Immature Granulocytes # (auto) 0.09 K/uL (0.00-0.02); Immature Granulocytes % (auto) 0.8 %; Lymphocytes # (auto) 1.32 K/uL (1.2-3.4); Mean Corpuscular Hemoglobin 26.7 pg (25.0-34.0); Mean Corpuscular Volume 83.6 fL (80.0-100.0); Mean Platelet Volume 8.6 fL (9.4-12.3); Monocytes # (auto) 1.53 K/uL (0.24-0.82); Neutrophils # (auto) 7.91 K/uL (1.4-6.5); Neutrophils % (auto) 72.2 %; Platelet Count 365 K/uL (130-400); RDW Coefficient of Variation 15.3 % (11.5-14.5); RDW Standard Deviation 46.5 fL (36.4-46.3); Red Blood Count 3.48 M/uL (3.93-5.22); White Blood Count 10.96 K/ul (4.8-10.8)
[2021-12-25 16:59] LABS: INR 1.2 (0.9-1.1); Partial Thromboplastin Ratio 1.3; Partial Thromboplastin Time 36.3 Seconds (21.0-31.0); Prothrombin Time 12.2 Seconds (9.0-12.0)
[2021-12-25] MEDS: CEFEPIME 2,000 MG in SYRINGE 0 ML IV SCH (17:49)
[2021-12-25] MEDS ORDERED: Heparin IV Adult Wt-Based Standard WITH Bolus Protocol IV STA (18:34)
[2021-12-25] MEDS ORDERED: HEPARIN SOD (PORCINE) 1000 UNIT/ML IV ONE (18:49)
[2021-12-25] MEDS: HEPARIN SODIUM/DEXTROSE 25,000 UNITS/500 ML BAG IV SCH (20:25)
[2021-12-25] MEDS ORDERED: ALPRAZolam 0.5 MG TABLET PO PRN ×2 (20:47→20:49)
[2021-12-25] MEDS ORDERED: MELATONIN 3 MG TAB PO PRN (22:57)
[2021-12-25] MEDS ORDERED: ALPRAZolam 0.5 MG TABLET PO STA (22:57)
[2021-12-25] MEDS: MELATONIN 3 MG TAB PO PRN (23:14)
[2021-12-25] MEDS: SACCHAROMYCES BOULARDII 250 MG CAP PO SCH (23:15)
[2021-12-25] MEDS: VENLAFAXINE HCL XR 75 MG CAPXR PO SCH (23:15)
[2021-12-25] MEDS: IMIPRAMINE HCL 50 MG TAB PO SCH (23:16)
[2021-12-26] MEDS: CEFEPIME 2,000 MG in SYRINGE 0 ML IV SCH ×4 (02:05→21:21)
[2021-12-26 02:49] LABS: Hematocrit (blood only) 28.3 % (34.1-44.9); Mean Corpuscular Hemoglobin 26.8 pg (25.0-34.0); Mean Corpuscular Hgb Conc 31.8 g/dL (32.0-36.0); Mean Corpuscular Volume 84.2 fL (80.0-100.0); Mean Platelet Volume 8.3 fL (9.4-12.3); Platelet Count 342 K/uL (130-400); RDW Coefficient of Variation 15.2 % (11.5-14.5); RDW Standard Deviation 46.7 fL (36.4-46.3); Red Blood Count 3.36 M/uL (3.93-5.22); White Blood Count 11.43 K/ul (4.8-10.8)
[2021-12-26 03:05] LABS: BUN Creatinine Ratio 13.5 (10-20); Creatinine Clr Calc Pharmacy 68.3 ml/min; Est GFR (African American) 92.5 ml/min; Est GFR (Non-African American) 79.8 ml/min; Magnesium 1.7 mg/dl (1.7-2.4); Potassium 3.3 mmol/L (3.5-5.1)
[2021-12-26 03:19] LABS: Partial Thromboplastin Ratio 3.6
[2021-12-26 03:50] LABS: Partial Thromboplastin Time 99.6 Seconds (21.0-31.0)
[2021-12-26] MEDS ORDERED: ALBUTEROL HFA 8 GM INHALER INH PRN (05:02)
[2021-12-26] MEDS: POTASSIUM CHLORIDE CRTAB 20 MEQ TABCR PO SCH ×3 (05:34→11:09)
--- NOTE | 2021-12-26 05:41 | Electrocardiogram Report ---
Test Reason : Blood Pressure : / mmHG Vent. Rate : 094 BPM Atrial Rate : 094 BPM P-R Int : 144 ms QRS Dur : 100 ms QT Int : 352 ms P-R-T Axes : 065 037 067 degrees QTc Int : 440 ms Poor data quality, interpretation may be adversely affected Normal sinus rhythm with sinus arrhythmia Septal infarct (cited on or before 24-DEC-2021) Abnormal ECG When compared with ECG of 24-DEC-2021 14:10, Questionable change in initial forces of Anterior leads T wave inversion no longer evident in Anterior leads Confirmed by Adonay Walker ([id number]) on 12/26/2021 5:41:03 AM Referred By: REFERRED SELF Confirmed By:Adonay Walker
[2021-12-26] MEDS: LEVOTHYROXINE SODIUM 50 MCG TABLET PO SCH (05:51)
[2021-12-26] MEDS ORDERED: MAGNESIUM SULFATE / D5W 1 GM/100 ML BAG IV ONE (07:45)
[2021-12-26] MEDS ORDERED: NON-FORMULARY MEDICATION (Fluticasone-Umeclidin-Vilanter [Trelegy Ellipta] 100-62.5-25 mcg INH SCH (09:00)
[2021-12-26] MEDS ORDERED: POTASSIUM CHLORIDE CRTAB 20 MEQ TABCR PO SCH (09:00)
[2021-12-26] MEDS: ASPIRIN 81 MG ECTAB PO SCH (09:17)
[2021-12-26] MEDS: buPROPion XL 150 MG TABCR PO SCH (09:18)
[2021-12-26] MEDS: ATORVASTATIN 40 MG TAB PO SCH (09:18)
[2021-12-26] MEDS: INDAPAMIDE 1.25 MG TAB PO SCH (09:18)
[2021-12-26] MEDS: SACCHAROMYCES BOULARDII 250 MG CAP PO SCH ×2 (09:18→21:17)
[2021-12-26] MEDS: FLUTICASONE PROPIONATE NA SPR 16 GM BTL NAE SCH (09:19)
[2021-12-26] MEDS: FLUTICASONE/VILANTEROL 100/25MCG 14 PUFFS/INHALER INH SCH (09:19)
[2021-12-26] MEDS: VENLAFAXINE HCL XR 150 MG CAPXR PO SCH (09:19)
[2021-12-26] MEDS: FAMOTIDINE 40 MG TABLET PO SCH (09:19)
[2021-12-26] MEDS: UMECLIDINIUM BROMIDE 62.5MCG/BLISTER 7 PUFFS/INHALER INH SCH (09:20)
[2021-12-26 11:45] LABS: Partial Thromboplastin Ratio 2.4
[2021-12-26 11:49] LABS: Partial Thromboplastin Time 66.5 Seconds (21.0-31.0)
--- NOTE | 2021-12-26 16:52 | Hospitalist Progress Note ---
Date of Service December 26, 2021 Assessment & Plan (1) RLL pneumonia: Plan: Pt has right lower lobe infiltrate with suggestion of necrosis, has history of tobacco use, copd and baseline pulmonary nodules, typically follows with Dr Sotomayor Cefepime/Azithromycin, blood cultures negative to date MRSA nasal swab test negative Biofire negative on admission but covid neg 12/24/21 (2) COPD (chronic obstructive pulmonary disease): Plan: pt will continue on trelegy has acute on chronic respiratory failure with hypoxia, will need a 2 step (3) Anemia: Plan: baseline anemia, hgb is stable, tsh normal check iron B12 folic acid (4) Chronic anticoagulation: Plan: Pt is on chronic apixaban but with her memory issues will be concerned that non compliance may be more at play then medication failure will convert to iv therapeutic heparin in case procedure is warranted CTA neck has some concerns for non occlusive thrombus in the left proximal ICA, will continue anticoagulation CT chest shows artifact vs PE in segmental branch of RUL (5) Executive function deficit: Plan: pt has been tested and confirmed (6) Hypothyroidism: Plan: remains on synthroid, tsh tested 12/24 and normal (7) Depression: Plan: Continue Effexor, buproprion, imiparamine, has been tapering off of benzodiazepines according to pcp Admission and Anticipated Discharge Date Admission Date: December 25, 2021 Subjective this pt is doing well, she has non productive cough she exhibits mild confusion Review of Systems Review of Systems: Mild distress and fatigue no headache, no visual changes no speech or swallowing issues no chest pain, pressure or palpitations mild shortness of breath, non productive cough no abdominal pain, nausea or vomiting, diarrhea or constipation no dysuria, hematuria or frequency no focal joint pain or swelling no back pain, CVA tenderness or radicular pain no bruising, bleeding or rashes no focal signs of weakness or numbness or altered sensation, maybe baseline mild confusion no complaints of anxiety or depression.. Physical Exam Physical Exam: The patient appeared well nourished and normally developed. Vital signs as documented. Head exam is normocephalic atraumatic Neck is without JVD, thyromegaly, or carotid bruits. Lungs coarse rales at the right base, increased fremitus, no egophoney Cardiac exam, Rhythm is regular.. No murmurs, rubs or gallops. Abdominal exam reveals normal bowel sounds, soft non tender, no masses Extremities are nonedematous and both pedal pulses are present Neurologic exam is alert and oriented x2, no focal loss of strength or sensation Skin is without bruises or rashes Psychologically is without concerns for anxiety or depression.. Results & Data Results & Data ([facility]) Vital Signs (Past 12 Hours) Vital Signs Temp Pulse Pulse Resp BP BP Pulse Ox 12/26/21 15:51 97.7 F 64 16 106/56 L 99 12/26/21 07:40 12/26/21 13:56 18 94 12/26/21 08:00 12/26/21 07:06 98.6 F 75 20 111/56 L 95 12/26/21 06:00 18 97 12/26/21 05:30 18 96 12/26/21 05:00 20 92 Pulse Ox O2 Del Method O2 Del Method O2 Flow Rate O2 Flow Rate 12/26/21 15:51 Room Air 12/26/21 07:40 Nasal Cannula 1 12/26/21 13:56 Room Air 12/26/21 08:00 94 Nasal Cannula 1 12/26/21 07:06 Nasal Cannula 2 12/26/21 06:00 Nasal Cannula 2 12/26/21 05:30 Nasal Cannula 2 12/26/21 05:00 Nasal Cannula 2 PG Care Time/CCT Total # of Minutes Spent Total Time Spent with Patient: Total time spent is greater than 50% in coordination of care (as documented) at patient's floor/unit and/or counseling patient: Coding Level of Care Code 92590 Subseq Hosp Care Lvl 3 Diagnoses RLL pneumonia J18.9 COPD (chronic obstructive pulmonary disease) J44.9 Anemia D64.9 Chronic anticoagulation Z79.01 Executive function deficit R41.844 Hypothyroidism E03.9 Depression F32.9
[2021-12-26] MEDS: AZITHROMYCIN 500 MG in DEXTROSE 5% 250 ML IV SCH (17:04)
[2021-12-26] MEDS: HEPARIN SODIUM/DEXTROSE 25,000 UNITS/500 ML BAG IV SCH (17:28)
[2021-12-26 18:59] LABS: Partial Thromboplastin Ratio 2.2
[2021-12-26 19:07] LABS: Partial Thromboplastin Time 59.2 Seconds (21.0-31.0)
[2021-12-26] MEDS ORDERED: HEPARIN-STOP ORDER ONE (21:00)
[2021-12-26] MEDS: VENLAFAXINE HCL XR 75 MG CAPXR PO SCH (21:17)
[2021-12-26] MEDS: APIXABAN 5 MG TABLET PO SCH (21:17)
[2021-12-26] MEDS: IMIPRAMINE HCL 50 MG TAB PO SCH (21:17)
[2021-12-26] MEDS: ALPRAZolam 0.5 MG TABLET PO PRN (21:21)
[2021-12-27] MEDS: LEVOTHYROXINE SODIUM 50 MCG TABLET PO SCH (05:40)
[2021-12-27 09:39] LABS: Basophils # (auto) 0.03 K/uL (0-0.2); Basophils % (auto) 0.3 %; Eosinophils # (auto) 0.44 K/uL (0-0.50); Eosinophils % (auto) 4.5 %; Hematocrit (blood only) 29.4 % (34.1-44.9); Hemoglobin 9.3 g/dl (12.0-16.0); Lymphocytes # (auto) 1.02 K/uL (1.2-3.4); Lymphocytes % (auto) 10.5 %; Mean Corpuscular Hemoglobin 26.4 pg (25.0-34.0); Mean Corpuscular Hgb Conc 31.6 g/dL (32.0-36.0); Mean Corpuscular Volume 83.5 fL (80.0-100.0); Mean Platelet Volume 8.4 fL (9.4-12.3); Monocytes # (auto) 0.71 K/uL (0.24-0.82); Monocytes % (auto) 7.3 %; Neutrophils # (auto) 7.42 K/uL (1.4-6.5); Neutrophils % (auto) 76.4 %; Platelet Count 380 K/uL (130-400); RDW Coefficient of Variation 15.6 % (11.5-14.5); RDW Standard Deviation 47.2 fL (36.4-46.3); Red Blood Count 3.52 M/uL (3.93-5.22); White Blood Count 9.72 K/ul (4.8-10.8)
[2021-12-27 09:56] LABS: Partial Thromboplastin Ratio 1.3; Partial Thromboplastin Time 36.1 Seconds (21.0-31.0)
[2021-12-27 10:13] LABS: BUN Creatinine Ratio 14.8 (10-20); Calcium 8.4 mg/dl (8.5-10.1); Creatinine Clr Calc Pharmacy 62.4 ml/min; Est GFR (African American) 82.9 ml/min; Est GFR (Non-African American) 71.5 ml/min; Magnesium 1.8 mg/dl (1.7-2.4); Potassium 3.5 mmol/L (3.5-5.1)
[2021-12-27] MEDS: ASPIRIN 81 MG ECTAB PO SCH (10:25)
[2021-12-27] MEDS: buPROPion XL 150 MG TABCR PO SCH (10:25)
[2021-12-27] MEDS: ATORVASTATIN 40 MG TAB PO SCH (10:25)
[2021-12-27] MEDS: APIXABAN 5 MG TABLET PO SCH ×2 (10:25→22:11)
[2021-12-27] MEDS: FAMOTIDINE 40 MG TABLET PO SCH (10:25)
[2021-12-27] MEDS: INDAPAMIDE 1.25 MG TAB PO SCH (10:25)
[2021-12-27] MEDS: SACCHAROMYCES BOULARDII 250 MG CAP PO SCH ×2 (10:25→22:10)
[2021-12-27] MEDS: CEFEPIME 2,000 MG in SYRINGE 0 ML IV SCH ×2 (10:26→17:09)
[2021-12-27] MEDS: FLUTICASONE PROPIONATE NA SPR 16 GM BTL NAE SCH (10:26)
[2021-12-27] MEDS: FLUTICASONE/VILANTEROL 100/25MCG 14 PUFFS/INHALER INH SCH (10:26)
[2021-12-27] MEDS: UMECLIDINIUM BROMIDE 62.5MCG/BLISTER 7 PUFFS/INHALER INH SCH (10:26)
[2021-12-27] MEDS: VENLAFAXINE HCL XR 150 MG CAPXR PO SCH (10:26)
[2021-12-27] MEDS: AZITHROMYCIN 500 MG in DEXTROSE 5% 250 ML IV SCH (17:15)
[2021-12-27] MEDS ORDERED: COUGH DROP (SUGAR FREE) LOZ 24 LOZ/1 BOX BUCCAL PRN (18:10)
--- NOTE | 2021-12-27 18:10 | Hospitalist Progress Note ---
Date of Service December 27, 2021 Assessment & Plan (1) RLL pneumonia: Plan: Pt has right lower lobe infiltrate with suggestion of necrosis, has history of tobacco use, copd and baseline pulmonary nodules, typically follows with Dr Sotomayor Cefepime/Azithromycin, blood cultures negative to date MRSA nasal swab test negative Biofire negative on admission but covid neg 12/24/21 oveall not acting clinically consistent with size of infiltrate on imaging , will have CXR if changes may consider pulmonary eval, overall biggest issue is her memory loss, as pt reportedly is still driving, does live with 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 that leaves to consider her confusion is baseline and not from infection (6) Hypothyroidism: Plan: remains on synthroid, tsh tested 12/24 and normal (7) Depression: Plan: Continue Effexor, buproprion, imiparamine, has been tapering off of benzodiazepines according to pcp Admission and Anticipated Discharge Date Admission Date: December 25, 2021 Subjective this pt is doing well, she has non productive cough slighlty increased she exhibits mild confusion Review of Systems Review of Systems: Mild distress and fatigue no headache, no visual changes no speech or swallowing issues no chest pain, pressure or palpitations mild shortness of breath, non productive cough no abdominal pain, nausea or vomiting, diarrhea or constipation no dysuria, hematuria or frequency no focal joint pain or swelling no back pain, CVA tenderness or radicular pain no bruising, bleeding or rashes no focal signs of weakness or numbness or altered sensation, maybe baseline mild confusion no complaints of anxiety or depression.. Physical Exam Physical Exam: The patient appeared well nourished and normally developed. Vital signs as documented. Head exam is normocephalic atraumatic Neck is without JVD, thyromegaly, or carotid bruits. Lungs coarse rales at the right base, increased fremitus, no egophony, slightly improved 12/27/21 Cardiac exam, Rhythm is regular.. No murmurs, rubs or gallops. Abdominal exam reveals normal bowel sounds, soft non tender, no masses Extremities are nonedematous and both pedal pulses are present Neurologic exam is alert and oriented x2, no focal loss of strength or sensation Skin is without bruises or rashes Psychologically is with concerns for some memory impairment Results & Data Results & Data ([facility]) Vital Signs (Past 12 Hours) Vital Signs Temp Pulse Pulse Resp BP Pulse Ox Pulse Ox 12/27/21 15:24 97.9 F 82 16 129/72 95 12/27/21 08:05 12/27/21 10:23 92 12/27/21 08:17 98.8 F 81 16 127/99 96 O2 Del Method O2 Del Method O2 Flow Rate 12/27/21 15:24 Room Air 12/27/21 08:05 Room Air 12/27/21 10:23 Room Air 0 12/27/21 08:17 Room Air PG Care Time/CCT Total # of Minutes Spent Total Time Spent with Patient: Total time spent is greater than 50% in coordination of care (as documented) at patient's floor/unit and/or counseling patient: Coding Level of Care Code 26159 Subseq Hosp Care Lvl 3 Diagnoses RLL pneumonia J18.9 COPD (chronic obstructive pulmonary disease) J44.9 Anemia D64.9 Chronic anticoagulation Z79.01 Executive function deficit R41.844 Hypothyroidism E03.9 Depression F32.9
[2021-12-27] MEDS: ALPRAZolam 0.5 MG TABLET PO PRN (22:10)
[2021-12-27] MEDS: VENLAFAXINE HCL XR 75 MG CAPXR PO SCH (22:10)
[2021-12-27] MEDS: MELATONIN 3 MG TAB PO PRN (22:10)
[2021-12-27] MEDS: IMIPRAMINE HCL 50 MG TAB PO SCH (22:12)
[2021-12-27] MEDS: guaiFENesin 600 MG TABCR PO SCH (22:48)
[2021-12-28] MEDS: CEFEPIME 2,000 MG in SYRINGE 0 ML IV SCH ×2 (02:35→09:58)
[2021-12-28] MEDS: LEVOTHYROXINE SODIUM 50 MCG TABLET PO SCH (06:06)
[2021-12-28] MEDS: VENLAFAXINE HCL XR 150 MG CAPXR PO SCH (08:20)
[2021-12-28] MEDS: guaiFENesin 600 MG TABCR PO SCH (08:20)
[2021-12-28] MEDS: INDAPAMIDE 1.25 MG TAB PO SCH (08:20)
[2021-12-28] MEDS: FAMOTIDINE 40 MG TABLET PO SCH (08:20)
[2021-12-28] MEDS: ATORVASTATIN 40 MG TAB PO SCH (08:20)
[2021-12-28] MEDS: buPROPion XL 150 MG TABCR PO SCH (08:20)
[2021-12-28] MEDS: ASPIRIN 81 MG ECTAB PO SCH (08:20)
[2021-12-28] MEDS: FLUTICASONE PROPIONATE NA SPR 16 GM BTL NAE SCH (08:20)
[2021-12-28] MEDS: SACCHAROMYCES BOULARDII 250 MG CAP PO SCH (08:20)
[2021-12-28] MEDS: APIXABAN 5 MG TABLET PO SCH (08:20)
[2021-12-28] MEDS: UMECLIDINIUM BROMIDE 62.5MCG/BLISTER 7 PUFFS/INHALER INH SCH (08:21)
[2021-12-28] MEDS: FLUTICASONE/VILANTEROL 100/25MCG 14 PUFFS/INHALER INH SCH (08:21)
--- NOTE | 2021-12-28 09:55 | XRay Report ---
TWO VIEW CHEST CLINICAL HISTORY: Pneumonia. FINDINGS: AP and lateral chest radiographs are compared to study dated 12/25/2021 and correlated with chest CT dated 12/24/2021. The heart is top normal for projection noting atherosclerotic calcification of the thoracic aorta. Emphysema and chronic interstitial thickening is similar to previous. A round focus of dense right lower lobe consolidation has not appreciably changed. Milder patchy consolidati on is seen throughout the remainder of the right lower lobe. No pleural effusion is identified. Foci of parenchymal scarring are scattered throughout both lungs. There is no pneumothorax. The skeletal s tructures are osteopenic. The bony thorax appears intact. Cholecystectomy clips are noted in the righ t upper quadrant. IMPRESSION: 1. Dense right lower lobe consolidation has not appreciably changed as compared to 12/25/2021. Continu ed follow-up to resolution is recommended. 2. Emphysema. ACT 112: Negative or not required by law. Electronically signed by: Anthony Canseco M.D. 12/28/2021 9:54 AM
[2021-12-28 10:18] LABS: Partial Thromboplastin Ratio 1.2
[2021-12-28 10:32] LABS: BUN Creatinine Ratio 13.3 (10-20); Creatinine Clr Calc Pharmacy 60.9 ml/min; Est GFR (African American) 80.5 ml/min; Est GFR (Non-African American) 69.5 ml/min; Magnesium 1.7 mg/dl (1.7-2.4); Potassium 3.8 mmol/L (3.5-5.1)
[2021-12-28 10:44] LABS: Hematocrit (blood only) 31.2 % (34.1-44.9); Hemoglobin 9.8 g/dl (12.0-16.0); Mean Corpuscular Hemoglobin 26.8 pg (25.0-34.0); Mean Corpuscular Hgb Conc 31.4 g/dL (32.0-36.0); Mean Corpuscular Volume 85.2 fL (80.0-100.0); Mean Platelet Volume 8.4 fL (9.4-12.3); Platelet Count 409 K/uL (130-400); RDW Coefficient of Variation 15.5 % (11.5-14.5); RDW Standard Deviation 48.1 fL (36.4-46.3); Red Blood Count 3.66 M/uL (3.93-5.22)
--- NOTE | 2022-01-09 11:03 | Discharge Summary ---
Date of Service December 28, 2021 Admission HPI Per Admitting Provider Patient is a poor historian. Patient returns after presenting on 12/24/2021 where she was diagnosed with a right lower lobe pneumonia with necrosis. He is a history of COPD and lung nodules followed by Dr. Sotomayor and typically takes Trelegy. During her ER visit she was found to be hypoxemic however she left AGAINST MEDICAL ADVICE due to concerns for care of her pet. Patient returns on 12/25/2021 with her pet. She is still pleasantly confused at times. She states that she is coughing to the point of urinary incontinence. She denies expectorating mucus. She denies fevers. In bed on room air she was 94% she does desaturate with movements. Reportedly her respiratory was 36 when she walked in. Images is consistent with right lower lobe pneumonia. COVID testing on 730 was negative Principal Diagnosis pneumonia Discharge Exam The patient appeared well nourished and normally developed. Vital signs as documented. Head exam is normocephalic atraumatic Neck is without JVD, thyromegaly, or carotid bruits. Lungs coarse rales at the right base, increased fremitus, no egophony, slightly improved 12/27/21 Cardiac exam, Rhythm is regular.. No murmurs, rubs or gallops. Abdominal exam reveals normal bowel sounds, soft non tender, no masses Extremities are nonedematous and both pedal pulses are present Neurologic exam is alert and oriented x2, no focal loss of strength or sensation Skin is without bruises or rashes Psychologically is with concerns for some memory impairment Discharge Data Allergies Allergy/AdvReac Type Severity Reaction Status Date / Time adhesive tape AdvReac Mild Rash Verified 01/04/22 12:01 amoxicillin AdvReac Mild YEAST Verified 01/04/22 12:01 INFECTIONS levofloxacin AdvReac Mild NERVOUS Verified 01/04/22 12:01 Consultations 12/25/21 08:41 ED Decision to Admit Stat Hospital Course (1) RLL pneumonia: Pt has right lower lobe infiltrate with suggestion of necrosis, has history of tobacco use, copd and baseline pulmonary nodules, typically follows with Dr Sotomayor Cefepime/Azithromycin, blood cultures negative to date MRSA nasal swab test negative Biofire negative on admission but covid neg 12/24/21 oveall not acting clinically consistent with size of infiltrate on imaging , will have CXR if changes may consider pulmonary eval, overall biggest issue is her memory loss, as pt reportedly is still driving, does live with daughter for in home agent Patient is discharge on cefdinir as an outpatient. 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 that leaves to consider her confusion is baseline and not from infection (6) Hypothyroidism: remains on synthroid, tsh tested 12/24 and normal (7) Depression: Continue Effexor, buproprion, imiparamine, has been tapering off of benzodiazepines according to pcp Total Time Total Time Spent Total Time Spent (In Minutes): 32 Discharge Plan Discharge Items Patient Disposition: Home - Self-Care Reason For Visit: RLL PNEUMONIA,SUBACUTE PE,LICA NONOCL THROMBUS Discharge Diagnosis: RLL Pneumonia Activity: Resume your previous activity Non-emergency contact: Primary Care Provider Call non-emergency contact if: you have any medication questions Follow-up/Referrals: ProPravin MD [Primary Care Provider] - Addtl Attending Provider Instructions: You have been hospitalized for an acute medical problem. During your stay at [facility], we have made an effort to correct the problem that brought you to the hospital while keeping you as comfortable as possible. Medications were used to bring your condition under control and your discharge instructions will include directions for any medications you should take after leaving the hospital. Please make sure you see your Primary Care Provider as part of your follow up plan. Increase Eliquis to 2 tablets twice a day for 6 days, then take 1 tablet twice a day. Recommend followup with PCP in 1-2 weeks. Recommend followup with Dr. Sotomayor within next 3 weeks. Pending Studies at Discharge: No Stand-Alone Forms: My [facility], Smoking Cessation Medications and DC Order Prescriptions: Continued multivitamin Tablet 1 tab PO QAM Qty: 0 fluticasone propionate [Flonase Allergy Relief] 50 mcg/actuation [place],Suspension 2 spray SANTY DAILY PRN (Reason: Nasal Congestion) Qty: 0 Probiotic 5 billion cell Capsule, Sprinkle 1 cap PO QAM Qty: 0 aspirin 81 mg tablet,delayed release (DR/EC) 81 mg PO QAM Qty: 90 3RF imipramine HCl 50 mg tablet 150 mg PO HS Qty: 270 3RF levothyroxine [Synthroid] 50 mcg tablet 50 mcg PO DAILY Qty: 90 3RF Rx Instructions: 0300 venlafaxine 75 mg capsule,extended release 24hr 75 mg PO HS Qty: 90 3RF alprazolam [Xanax] 1 mg tablet 2 mg PO HS Qty: 180 0RF Rx Instructions: May take 1 additional tablet per day as needed albuterol sulfate 90 mcg/actuation HFA aerosol inhaler 1 - 2 puff INH Q4H PRN (Reason: SOB) Qty: 3 1RF Rx Instructions: Inhale 1 to 2 puffs every 4-6 hours as needed. azelastine 137 mcg (0.1 %) aerosol,spray 2 spray INTNAS BID Qty: 3 1RF bupropion HCl [Wellbutrin XL] 150 mg tablet extended release 24 hr 150 mg PO QAM Qty: 90 3RF venlafaxine 150 mg capsule,extended release 24hr 150 mg PO QAM Qty: 90 1RF Trelegy Ellipta 100-62.5-25 mcg blister with device 1 inh inhalation DAILY Qty: 60 3RF Neuriva Plus 0.85 mg-200 mcg-1.2 mcg tablet,chewable 2 tab PO indapamide 1.25 mg tablet 1.25 mg PO QAM melatonin 10 mg tablet 10 mg PO HS PRN atorvastatin 80 mg tablet 80 mg PO DAILY Qty: 90 3RF famotidine 40 mg tablet 40 mg PO DAILY Qty: 90 3RF potassium chloride 8 mEq tablet extended release 8 meq PO QAM Qty: 90 3RF fluconazole [Diflucan] 150 mg tablet 150 mg PO Q3D PRN (Reason: Yeast infection) Qty: 2 0RF Rx Instructions: Do not take Xanax with this medication Saccharomyces boulardii [Florastor] 250 mg capsule 250 mg PO BID Qty: 20 0RF Rx Instructions: swallow whole Eliquis 5 mg tablet 5 mg PO BID Qty: 180 3RF Rx Instructions: Take 2 pills twice a day for 6 days then back to your regular dose of 5 mg twice a day. Discontinued amoxicillin-pot clavulanate 875-125 mg tablet 1 tab PO Q12H Qty: 20 0RF No Action cefdinir 300 mg capsule 300 mg PO BID Qty: 42 0RF pantoprazole 40 mg tablet,delayed release (DR/EC) 40 mg PO BID Qty: 60 0RF Rx Instructions: TAKE 1 TABLET BY MOUTH TWICE DAILY 30 MINS BEFORE BREAKFAST AND DINNER Discharge Orders: Discharge Order (Routine); Ordered 12/28/21 Ordered By: Zion Hernandez/Other Patient Handouts: Treating Pneumonia Admission Data Admit Date/Time: 12/25/21 12:14 Attending Provider: Zion Gandhi Admit Provider: Quinn Mathews Primary Care Provider: Pravin Drew Other Providers: Quinn Mathews ; [facility] Other Interventions: Discharge Summary Assessment (RN) Last Done: 12/28/21 17:18 Coding Level of Care Code D/C DAY MANAGEMENT >30 MINS Diagnoses RLL pneumonia J18.9 COPD (chronic obstructive pulmonary disease) J44.9 Anemia D64.9 Chronic anticoagulation Z79.01 Executive function deficit R41.844 Hypothyroidism E03.9 Depression F32.9
== END 2021-12-28 19:35 | disposition home or self-care (01) | DRG 193 ==
LOC: ED 07:15 → SUATTDRO 12:14 → 3W 12:14

== ENCOUNTER 2022-03-26 09:43 | Inpatient (IN) ==
[2022-03-26] MEDS ORDERED: ONDANSETRON INJ 2 MG/ML 2 ML VIAL IV STA (10:31)
[2022-03-26] MEDS ORDERED: fentaNYL citrate 100 MCG/2 ML VIAL IV STA (10:31)
--- NOTE | 2022-03-26 10:34 | Emergency Department Note ---
Impression & Plan Near syncope, Closed head injury, Collapse, Complex laceration of scalp ED Provider Note Name: KEN GARCIA Age: 76 Sex: F Arrives Via: Ambulance Informant: Patient, EMS ED Provider: Aroldo Chavez MD Chief Complaint: Head injury Impression: As per impressions above Medical Decision Making: Pleasant 76-year-old female who has been having recurrent syncope/falls at home. Unclear exactly the cause of these but again it occurred today when she just f ell straight to the floor in her kitchen. No preceding event and she did not actually have a syncope. This resulted in her hitting the back of her head. She arrives to the ER with a very large bleeding gash to the posterior scalp. With pressure we are able to keep the wound from bleeding get her to CT which reveals no intracranial hemorrhage or fracture. Her for return from CT I and the area remove some of the clot and then noticed significant arterial bleeding. At this point multiple martha were placed across the posterior wound. Patient developed some nausea and chest pain during this and EKG reveals no evidence of ischemia. Wound is closed and no further bleeding. There is about a centimeter of area that was not closed due to the patient complaining of chest pain. Fortunately there is no bleeding from that area. I discussed case with the hospitalist with the need for bring her in given the syncopal-like event, the development of chest pain ER as well as the significant amount of blood she lost from the side wound will require repeat hemoglobin checks. Patient has no e vidence of acute stroke on examination. Given the amount of bleeding I do not think giving her aspirin would be appropriate following her chest. Prior Medical Record and Triage/Nursing Notes reviewed by Me Differentials:Vasovagal event, dehydration, infection, hypoglycemia, electrolyte abnormalities, cardiac sources, intracerebral event, pulmonary embolism, seizure, toxicologic, neurologic, as well as other pathologies. Vital Signs: reviewed and remarkable for no significant abnormalities Interventions: Multiple rounds IV pain medications Labs:Reviewed and remarkable for mild anemia Imaging:CT imaging of the head and neck without fracture or intracranial hemorrhage per radiology EKG:As per my interpretation. Indication near syncope. Sinus rhythm at 65 bpm without ectopy nor ischemia. QTc 484. When compared to EKG from February 15, 2022 no acute changes. Cardiac/Tele Monitoring: Cardiac Monitoring: An Order was placed for continuous cardiac monitoring. The monitor shows a rate of 60 with a normal sinus rhythm. Consults:Dr Harsh WEST Hospitalist Plan: Disposition:Hospitalization. Condition: Good History of Present Illness:76-year-old female arrives for evaluation of head injury. Patient notes she was walking through her cheek into her kitchen when she had a sudden fall to the ground. It was without any preceding symptoms and she is adamant she did not trip. She does fell to the ground hitting the back of her head. She does remember this though feels a bit lightheaded about at all. She did not have loss consciousness. She denies any weakness in arms or legs, slurred speech, confusion, visual changes. She has been dealing with multiple episodes of falls and weakness which are attributable to "mini strokes". She is currently on Eliquis. When she fell and hit her head she sustained a laceration of the posterior scalp. She has been having heavy bleedi ng while at home. Bleeding was controlled with pressure. Denies any other injuries. She has no chest pain, shortness of breath abdominal pain, back pain, nausea, vomiting, arm pain, shoulder pain, pelvic pain, knee pain, other concerning signs or symptoms. No medications prior to arrival. Nothing makes better or worse. ROS: See above HPI for pertinent positives & negatives. A total of 10 systems reviewed and were otherwise negative. Past Medical History:See Below Past Surgical History:See Below Family History:See Below Social History:See Below Home Medications:See Below Allergies:Amoxicillin, adhesive, Levaquin Vitals:Blood Pressure: 143/70, Pulse 64, RR 18, T 36.7C, O2 99% on RA Physical Exam: GENERAL: Patient is uncomfortable appearing and in moderate distress. HEAD: Large hematoma with 6 cm horizontal laceration across occiput EYES: No scleral icterus, unremarkable pupils. ENT: Mucous membranes moist, no nasal congestion. NECK: No masses appreciated, nomeningismus, trachea is midline. RESPIRATORY: No dyspnea. Clear to auscultation and equal bilaterally. No wheeze, no rhonchi. CARDIOVASCULAR: Regular rate and rhythm.No murmurs, rubs, gallops appreciated. GASTROINTESTINAL: Abdomen soft, non-tender, no peritonitis.Bowel sounds positive.No masses appreciated. BACK: No midline tenderness, no CVA tenderness EXTREMITIES: Normal motion all extremities, no cyanosis, no edema. NEUROLOGIC: Alert and oriented, no acute motor or sensory deficits, no focal weakness, cranial nerves grossly intact. SKIN: No rash, no jaundice, no diaphoresis. PSYCH: Appropriate GCS: 15 ED Course: Times/Reassessments: Patient stable bleeding controlled and she is feeling better after several lines of pain meds though still has a slight headache. Procedures: Laceration Repair: Location: Posterior scalp Complexity: Complex secondary to large hematoma and gaping wound Length: 6 cm Verbal consent was obtained after the risks and benefits were explained, including but not limited to bleeding, scarring, infection, pain, and bone/joint/nerve damage. At this time, the risks of the procedure are less than the risks of NOT performing the procedure. A time out was taken and the correct patient and site identified. The skin was prepped with betadine.The wound was explored for foreign bodies and none found. Examination revealed no injury to deep structures such as tendons, bone, or significant blood vessels. Debridement was not performed. The wound edges were approximated using 12 martha. Hemostasis and excellent approximation was achieved. Antibacterial ointment and a sterile dressing applied. Detailed wound care instructions and signs and sy mptoms of infection reviewed with the patient. No complications and the patient tolerated the procedure well. I personally performed the entire procedure. Aroldo Chavez MD Past Med/Surg History Medical History Abnormal chest CT Acquired deviated nasal septum Cardiac murmur Chronic obstructive pulmonary disease Chronic rhinitis Depression Dyslipidemia Former smoker Generalized anxiety disorder Generalized osteoarthritis of multiple sites GERD (gastroesophageal reflux disease) GERD (gastroesophageal reflux disease) Hearing deficit Hiatal hernia Hypertension Hypothyroidism Internal hemorrhoids Knee pain, left Laryngopharyngeal reflux Lumbar radiculopathy Multiple lipomas Multiple pulmonary nodules Nontoxic multinodular goiter Osteoarthritis Poor historian Pulmonary embolism Transient ischemic attack (TIA) Tricuspid regurgitation Tubular adenoma of colon VAIN (vaginal intraepithelial neoplasia) Surgical History H/O removal of cyst History of arthroscopy History of breast biopsy History of cataract surgery History of cholecystectomy History of colonoscopy History of dilatation and curettage History of esophagogastroduodenoscopy (EGD) History of eye surgery History of oral surgery History of thyroidectomy, subtotal History of tonsillectomy History of tooth extraction History of total abdominal hysterectomy and bilateral salpingo-oophorectomy History of tubal ligation S/P excision of lipoma (08/08/19) Family History Grandmother Family history of diabetes mellitus MATERNAL Mother Family hx of colon cancer Colorectal cancer Father Coronary heart disease Daughter Slow to wake up after anesthesia Denies family history of Ovarian cancer Prostate cancer Myocardial infarction Breast cancer Social History Smoking Status: Former smoker Tobacco Type: Cigarettes Second Hand Exposure: No; Do You Dip or Chew Tobacco: No; Tobacco Cessation Education Requested by Patient: No Hx Alcohol Use: No Hx Substance Use: No Preferred Language: Latvian Communication Ability: Effective Strip Mine Supervisor Required: No Beliefs That Will Affect Care: None marital status: Current Living Situation: Alone Current Living Situation Comment: Daughter lives with her current occupational status: retired Other Information That Helps Us Care for You: No Feels Safe at Home: Yes Safety Concerns: Feels Safe At This Time Dental Care, Regularly: Yes Physical Activity Frequency: Does not Exercise Seatbelt Use: always Sunscreen Use: No Assistive Devices: Cane Allergies Allergies Allergy/AdvReac Type Severity Reaction Status Date / Time adhesive tape AdvReac Mild Rash Verified 03/26/22 14:57 amoxicillin AdvReac Mild YEAST Verified 03/26/22 14:57 INFECTIONS levofloxacin AdvReac Mild NERVOUS Verified 03/26/22 14:57 Home Meds Home Medications Medication Instructions Recorded Confirmed Lactobacil.acidophilus-Bifido.animalis 1 cap PO QAM ##0 11/08/16 03/26/22 5 billion cell sprinkle capsule (Probiotic) fluticasone propionate 50 2 spray SANTY DAILY PRN Nasal 11/08/16 03/26/22 mcg/actuation nasal Congestion ##0 spray,suspension (Flonase Allergy Relief) multivitamin 1 tab PO QAM #0 tabs 11/08/16 03/26/22 B6 0.85 mg-folic 200 2 tab PO DAILY 10/26/21 03/26/22 [id number] oral chewable tablet (Neuriva Plus) melatonin 10 mg tablet 10 mg PO HS PRN Sleep 10/26/21 03/26/22 Previous Rx's Medication Instructions Recorded azelastine 137 mcg (0.1 %) nasal 2 spray intranasal BID #3 ea 06/14/20 spray aerosol aspirin 81 mg tablet,delayed 81 mg PO QAM #90 tabs 03/11/21 release imipramine HCl 50 mg tablet 150 mg PO HS #270 tabs 05/11/21 levothyroxine 50 mcg tablet 50 mcg PO DAILY #90 tabs 05/19/21 (Synthroid) bupropion HCl 150 mg 24 hr tablet, 150 mg PO QAM #90 tabs 06/17/21 extended release (Wellbutrin XL) venlafaxine 75 mg capsule,extended 75 mg PO HS #90 caps 10/25/21 release 24 hr atorvastatin 80 mg tablet 80 mg PO DAILY #90 tabs 10/26/21 potassium chloride 8 mEq 8 meq PO QAM #90 tabs 10/26/21 tablet,extended release alprazolam 1 mg tablet (Xanax) 2 mg PO HS #180 tabs 12/12/21 Saccharomyces boulardii 250 mg 250 mg PO BID #20 caps 12/24/21 capsule (Florastor) apixaban 5 mg tablet (Eliquis) 5 mg PO BID #180 tabs 12/28/21 famotidine 40 mg tablet 40 mg PO DAILY #90 tabs 01/12/22 venlafaxine 150 mg 150 mg PO QAM #90 caps 01/18/22 capsule,extended release 24 hr pantoprazole 40 mg tablet,delayed 40 mg PO BID #180 tabs 02/03/22 release albuterol sulfate 90 mcg/actuation 1 - 2 puff inhalation Q4H PRN SOB 03/21/22 aerosol inhaler #3 ea fluticasone fur. 100 mcg-umeclid 1 inh inhalation DAILY #60 ea 03/21/22 62.5 mcg-vilant 25 mcg inhalat.powder (Trelegy Ellipta) indapamide 1.25 mg tablet 1.25 mg PO QAM #90 tabs 03/24/22 Results & Data (ED) Vital Signs Vital Signs - 24 hr 03/26/22 09:51 03/26/22 10:23 Temperature 36.7 C Temperature Source Temporal Artery Scan Pulse Rate 67 Pulse Rate [Radial] 64 Pulse Rhythm Regular Pulse Rhythm [Radial] Regular Pulse Strength Normal Respiratory Rate 20 18 Respiratory Effort / Characteristics Non-Labored Spontaneous Non-Labored Respiratory Depth Normal Normal Respiratory Pattern Regular Regular Blood Pressure 174/77 H Blood Pressure [Right Arm] 143/70 H Blood Pressure Mean 109 Blood Pressure Mean [Right Arm] 94 Blood Pressure Position Sitting Pulse Oximetry 97 99 Oxygen Delivery Method Room Air Room Air Sepsis Recent Fever Within 48 Hours No Sepsis New/Unexplained Change in Mental Status N/A Sepsis Action Taken by Nursing No Action Required Laboratory Data Result diagrams: 03/27/22 08:34 03/28/22 05:58 Lab Results 03/26/22 03/26/22 03/26/22 Range/Units 09:55 09:55 12:50 WBC 7.73 (4.8-10.8) K/ul RBC 4.41 (3.93-5.22) M/uL Hgb 11.9 L (12.0-16.0) g/dl Hct 37.9 (34.1-44.9) % MCV 85.9 (80.0-100.0) fL MCH 27.0 (25.0-34.0) pg MCHC 31.4 L (32.0-36.0) g/dL RDW Std Deviation 51.8 H (36.4-46.3) fL RDW Coeff of Azam 16.6 H (11.5-14.5) % Plt Count 223 (130-400) K/uL MPV 9.3 L (9.4-12.3) fL Immature Gran % (Auto) 1.0 % Neut % (Auto) 52.1 % Lymph % (Auto) 31.8 % Gallia % (Auto) 9.1 % Eos % (Auto) 5.4 % Baso % (Auto) 0.6 % Neut # (Auto) 4.02 (1.4-6.5) K/uL Lymph # (Auto) 2.46 (1.2-3.4) K/uL Gallia # (Auto) 0.70 (0.24-0.82) K/uL Eos # (Auto) 0.42 (0-0.50) K/uL Baso # (Auto) 0.05 (0-0.2) K/uL Immature Gran # (Auto) 0.08 H (0.00-0.02) K/uL Sodium 142 (136-145) mmol/L Potassium 3.6 (3.5-5.1) mmol/L Chloride 104 (98-107) mmol/L Carbon Dioxide 33 H (21-32) mmol/L Anion Gap 5 (3-11) BUN 13 (6-23) mg/dl Creatinine 0.92 (0.6-1.2) mg/dl Est Cr Clr Drug Dosing 55.6 ml/min Est GFR ( Amer) 71.1 ml/min Est GFR (Non-Af Amer) 61.3 ml/min BUN/Creatinine Ratio 14.1 (10-20) Glucose 89 (70-99(Fasting)) mg/dl Calcium 10.0 (8.5-10.1) mg/dl Total Bilirubin 0.4 (0.2-1.0) mg/dl AST 23 (13-39) U/L ALT 22 (7-52) U/L Alkaline Phosphatase 67 (34-104) U/L Troponin I High Sens 7.9 (0-14) pg/ml Total Protein 6.7 (6.0-8.3) gm/dl Albumin 3.8 (3.4-5.0) gm/dl Globulin 2.9 (2.5-4.0) gm/dl Albumin/Globulin Ratio 1.3 (0.9-2) SARS-CoV-2, RNA, NAAT (NEGATIVE) 03/26/22 Range/Units 13:24 WBC (4.8-10.8) K/ul RBC (3.93-5.22) M/uL Hgb (12.0-16.0) g/dl Hct (34.1-44.9) % MCV (80.0-100.0) fL MCH (25.0-34.0) pg MCHC (32.0-36.0) g/dL RDW Std Deviation (36.4-46.3) fL RDW Coeff of Azam (11.5-14.5) % Plt Count (130-400) K/uL MPV (9.4-12.3) fL Immature Gran % (Auto) % Neut % (Auto) % Lymph % (Auto) % Gallia % (Auto) % Eos % (Auto) % Baso % (Auto) % Neut # (Auto) (1.4-6.5) K/uL Lymph # (Auto) (1.2-3.4) K/uL Gallia # (Auto) (0.24-0.82) K/uL Eos # (Auto) (0-0.50) K/uL Baso # (Auto) (0-0.2) K/uL Immature Gran # (Auto) (0.00-0.02) K/uL Sodium (136-145) mmol/L Potassium (3.5-5.1) mmol/L Chloride (98-107) mmol/L Carbon Dioxide (21-32) mmol/L Anion Gap (3-11) BUN (6-23) mg/dl Creatinine (0.6-1.2) mg/dl Est Cr Clr Drug Dosing ml/min Est GFR ( Amer) ml/min Est GFR (Non-Af Amer) ml/min BUN/Creatinine Ratio (10-20) Glucose (70-99(Fasting)) mg/dl Calcium (8.5-10.1) mg/dl Total Bilirubin (0.2-1.0) mg/dl AST (13-39) U/L ALT (7-52) U/L Alkaline Phosphatase (34-104) U/L Troponin I High Sens (0-14) pg/ml Total Protein (6.0-8.3) gm/dl Albumin (3.4-5.0) gm/dl Globulin (2.5-4.0) gm/dl Albumin/Globulin Ratio (0.9-2) SARS-CoV-2, RNA, NAAT NEGATIVE (NEGATIVE) Administered Medications Acetaminophen (Acetaminophen 500 Mg Tab) 1,000 mg PO Q8H PRN PRN Reason: Pain or Fever Stop: 04/27/22 00:09 Last Admin: 03/28/22 02:29 Dose: 1,000 mg Documented By: GABRIEL Alprazolam (Alprazolam 0.5 Mg Tablet) 2 mg PO HS LEXX Stop: 04/25/22 20:59 Last Admin: 03/27/22 19:48 Dose: 2 mg Documented By: Admin: 03/26/22 21:52 Dose: 2 mg Documented By: GABRIEL Atorvastatin Calcium (Atorvastatin 40 Mg Tab) 80 mg PO DAILY LEXX Stop: 04/26/22 08:59 Last Admin: 03/28/22 07:49 Dose: 80 mg Documented By: Admin: 03/27/22 08:47 Dose: 80 mg Documented By: SANTI Bupropion HCl (Bupropion Xl 150 Mg Tabcr) 150 mg PO QAM LEXX Stop: 04/26/22 08:59 Last Admin: 03/28/22 09:33 Dose: 150 mg Documented By: Admin: 03/27/22 08:47 Dose: 150 mg Documented By: SANTI Cephalexin HCl (Cephalexin 500 Mg Cap) 500 mg PO BID LEXX Stop: 04/01/22 20:59 Last Admin: 03/28/22 07:49 Dose: 500 mg Documented By: Admin: 03/27/22 21:42 Dose: 500 mg Documented By: GABRIEL Ferrous Sulfate (Ferrous Sulfate 325 Mg Tab) 325 mg PO Q48H LEXX Stop: 04/25/22 15:29 Last Admin: 03/26/22 18:07 Dose: Not Given Documented By: MARTY Fluticasone Furoate (Fluticasone Furoate 100mcg 14 Puffs/Inhaler) 1 puffs INH DAILY LEXX; Protocol Stop: 04/26/22 08:59 Last Admin: 03/28/22 07:50 Dose: 1 puffs Documented By: Admin: 03/27/22 08:48 Dose: 1 puffs Documented By: SANTI Sodium Chloride (Nss 1000ml) 1,000 mls @ 80 mls/hr IV .[id number] LEXX Stop: 04/26/22 15:29 Last Admin: 03/28/22 05:28 Dose: 80 mls/hr Documented By: Infusion: 03/28/22 05:28 Dose: 80 mls/hr Documented By: Admin: 03/27/22 16:58 Dose: 80 mls/hr Documented By: SANTI Magnesium Sulfate/Dextrose (Magnesium Sulfate / D5w) 1 gm in 100 mls @ 50 mls/hr IV Q2H LEXX Stop: 03/28/22 15:29 Last Admin: 03/28/22 13:14 Dose: 50 mls/hr Documented By: Infusion: 03/28/22 13:13 Dose: 0 mls/hr Documented By: Admin: 03/28/22 11:29 Dose: 50 mls/hr Documented By: SANTI Imipramine HCl (Imipramine Hcl 50 Mg Tab) 150 mg PO HS LEXX Stop: 04/25/22 20:59 Last Admin: 03/27/22 19:47 Dose: 150 mg Documented By: Admin: 03/26/22 21:52 Dose: 150 mg Documented By: GABRIEL Indapamide (Indapamide 1.25 Mg Tab) 1.25 mg PO QAM LEXX Stop: 04/26/22 08:59 Last Admin: 03/27/22 08:47 Dose: 1.25 mg Documented By: SANTI Levothyroxine Sodium (Levothyroxine Sodium 50 Mcg Tablet) 50 mcg PO QPM LEXX Stop: 04/25/22 20:59 Last Admin: 03/27/22 19:48 Dose: 50 mcg Documented By: Admin: 03/26/22 21:52 Dose: 50 mcg Documented By: GABRIEL Lidocaine (Lidocaine 5% Oint 30 Gm Tube) 1 appln EXT Q6H PRN PRN Reason: Pain Stop: 04/26/22 21:45 Last Admin: 03/28/22 02:30 Dose: 1 appln Documented By: GABRIEL Pantoprazole Sodium (Pantoprazole 40 Mg Tab) 40 mg PO 0730,1630 LEXX Stop: 04/25/22 17:59 Last Admin: 03/28/22 07:49 Dose: 40 mg Documented By: Admin: 03/27/22 15:37 Dose: 40 mg Documented By: Admin: 03/27/22 08:48 Dose: 40 mg Documented By: Admin: 03/26/22 18:25 Dose: 40 mg Documented By: MARTY Umeclidinium/Vilanterol (Umeclidinium/Vilanterol 62.5/25mcg 7 Puffs/Inhaler) 1 puffs INH DAILY LEXX Stop: 04/26/22 08:59 Last Admin: 03/28/22 07:50 Dose: 1 puffs Documented By: Admin: 03/27/22 08:49 Dose: 1 puffs Documented By: SANTI Venlafaxine HCl (Venlafaxine Hcl Xr 75 Mg Capxr) 75 mg PO HS LEXX Stop: 04/25/22 20:59 Last Admin: 03/27/22 19:47 Dose: 75 mg Documented By: Admin: 03/26/22 21:52 Dose: 75 mg Documented By: GABRIEL Venlafaxine HCl (Venlafaxine Hcl Xr 150 Mg Capxr) 150 mg PO QAM LEXX Stop: 04/26/22 08:59 Last Admin: 03/28/22 07:49 Dose: 150 mg Documented By: Admin: 03/27/22 08:47 Dose: 150 mg Documented By: SANTI Discontinued Medications Acetaminophen (Acetaminophen 325 Mg Tab) 650 mg PO Q4H PRN PRN Reason: Pain or Fever Stop: 04/25/22 16:47 Last Admin: 03/27/22 19:46 Dose: 650 mg Documented By: Admin: 03/27/22 02:05 Dose: 650 mg Documented By: Admin: 03/26/22 21:52 Dose: 650 mg Documented By: GABRIEL Fentanyl Citrate (Fentanyl Citrate 100 Mcg/2 Ml Vial) 50 mcg IV NOW STA Stop: 03/26/22 10:32 Last Admin: 03/26/22 11:26 Dose: 50 mcg Documented By: KLAUDIA Hydromorphone HCl (Hydromorphone Inj 0.5 Mg/0.5 Ml Syr) 0.5 mg IV NOW STA Stop: 03/26/22 12:07 Last Admin: 03/26/22 12:16 Dose: 0.5 mg Documented By: KLAUDIA Hydromorphone HCl (Hydromorphone Inj 0.5 Mg/0.5 Ml Syr) 0.5 mg IV NOW STA Stop: 03/26/22 12:46 Last Admin: 03/26/22 12:52 Dose: 0.5 mg Documented By: KLAUDIA Sodium Chloride (Nss 1000ml) 1,000 mls @ 999 mls/hr IV .Q1H1M ONE Stop: 03/27/22 16:17 Last Infusion: 03/27/22 16:57 Dose: 0 mls/hr Documented By: Admin: 03/27/22 15:59 Dose: 999 mls/hr Documented By: SANTI Ondansetron HCl (Ondansetron Inj 2 Mg/Ml 2 Ml Vial) 4 mg IV NOW STA Stop: 03/26/22 10:32 Last Admin: 03/26/22 11:26 Dose: 4 mg Documented By: KLAUDIA Potassium Chloride (Potassium Chloride Crtab 20 Meq Tabcr) 40 meq PO NOW STA Stop: 03/28/22 11:20 Last Admin: 03/28/22 11:29 Dose: 40 meq Documented By: SANTI Discharge Plan Visit Data Chief Complaint: Fall Stated Complaint: FALL, HEAD LAC ED Provider: Scott,Aroldo F Discharge Problem: Near syncope, Closed head injury, Collapse, Complex laceration of scalp Patient Disposition: Admitted As Inpatient Discharge Instructions Interventions: ED Discharge Assessment Last Done: 03/26/22 16:49 : Closed head injury Qualifiers: Encounter type: initial encounter Qualified Code(s): S09.90XA - Unspecified injury of head, initial encounter
[2022-03-26 10:53] LABS: Basophils # (auto) 0.05 K/uL (0-0.2); Basophils % (auto) 0.6 %; Eosinophils # (auto) 0.42 K/uL (0-0.50); Eosinophils % (auto) 5.4 %; Hematocrit (blood only) 37.9 % (34.1-44.9); Hemoglobin 11.9 g/dl (12.0-16.0); Immature Granulocytes # (auto) 0.08 K/uL (0.00-0.02); Lymphocytes # (auto) 2.46 K/uL (1.2-3.4); Lymphocytes % (auto) 31.8 %; Mean Corpuscular Hgb Conc 31.4 g/dL (32.0-36.0); Mean Corpuscular Volume 85.9 fL (80.0-100.0); Mean Platelet Volume 9.3 fL (9.4-12.3); Monocytes % (auto) 9.1 %; Neutrophils # (auto) 4.02 K/uL (1.4-6.5); Neutrophils % (auto) 52.1 %; Platelet Count 223 K/uL (130-400); RDW Coefficient of Variation 16.6 % (11.5-14.5); RDW Standard Deviation 51.8 fL (36.4-46.3); Red Blood Count 4.41 M/uL (3.93-5.22); White Blood Count 7.73 K/ul (4.8-10.8)
[2022-03-26 11:12] LABS: Albumin Globulin Ratio 1.3 (0.9-2); Albumin Level 3.8 gm/dl (3.4-5.0); BUN Creatinine Ratio 14.1 (10-20); Bilirubin,Total 0.4 mg/dl (0.2-1.0); Creatinine Clr Calc Pharmacy 55.6 ml/min; Est GFR (African American) 71.1 ml/min; Est GFR (Non-African American) 61.3 ml/min; Globulin 2.9 gm/dl (2.5-4.0); Potassium 3.6 mmol/L (3.5-5.1); Total Protein 6.7 gm/dl (6.0-8.3)
--- NOTE | 2022-03-26 11:26 | CT Scan Report ---
CT OF THE HEAD WITHOUT CONTRAST CLINICAL HISTORY: posterior head injury, on eliquis COMPARISON STUDY: Head CT and MRI of the brain February 15, 2022. TECHNIQUE: Helical axial images of the head were obtained without IV contrast. Automated exposure con trol was utilized for the study. A dose lowering technique was utilized adhering to the principles o f ALARA. FINDINGS: No acute intracranial hemorrhage, midline shift or mass effect is present. The ventricular system is unremarkable. The basal cisterns are patent. No extra-axial collections are present. There are no findings to suggest acute dural sinus thrombosis or acute territorial infarct. Prominence of t he extra-axial spaces is unchanged and due to atrophy. Large right posterior scalp contusion is prese nt. There is no acute calvarial fracture. IMPRESSION: 1. No acute intracranial findings. 2. Large posterior right scalp contusion. No acute calvarial fracture. ACT 112: Negative or not required by law. Electronically signed by: Mono Urias M.D. 03/26/2022 11:25 AM
--- NOTE | 2022-03-26 11:45 | CT Scan Report ---
CT OF THE CERVICAL SPINE WITHOUT CONTRAST CLINICAL HISTORY: posterior head injury COMPARISON STUDY: MRI of the cervical spine November 18, 2021. CT of the cervical spine August 02, 2020. TECHNIQUE: Helical axial images of the cervical spine were obtained without IV contrast. Sagittal a nd coronal reconstructions were viewed. Automated exposure control was utilized for the study. A do se lowering technique was utilized adhering to the principles of ALARA. FINDINGS: Reversal of the cervical lordosis is unchanged. Vertebral body heights are maintained. No a cute cervical spine fracture or subluxation is present. There is no prevertebral edema. Facet joints are intact. Moderate multilevel degenerative changes are present. IMPRESSION: No acute cervical spine fracture or subluxation. ACT 112: Negative or not required by law. Electronically signed by: Mono Urias M.D. 03/26/2022 11:43 AM
[2022-03-26] MEDS ORDERED: HYDROmorphone INJ 0.5 MG/0.5 ML SYR IV STA ×2 (12:06→12:45)
--- NOTE | 2022-03-26 13:55 | History & Physical Report ---
Date of Service March 26, 2022 Assessment & Plan (1) Fall: Plan: Keira is a 76-year-old female with past medical history of carotid stenosis, frontotemporal dementia, esophageal dysphagia, nontoxic goiter, pulmonary nodules, lumbar radiculopathy, dyslipidemia, depression, hypothyroidism, lipomas, PE, basilar artery stenosis, balance impairment and neurologic gait disorder, anemia, and COPD who presents after a fall while walking in her kitchen without syncope. Patient did strike her head and has a posterior scalp laceration and with significant bleeding. Patient recommended for observation both for syncopal eval and due to extensive laceration bleeding with difficult to control arterial bleeder has been recommended for hemoglobin trend overnight, and to have antiplatelets and DOAC held. Fall,? Presyncope Patient denies chest pain, chest pressure, or dizziness but suddenly felt weak and fell. Denies tripping/mechanical fall EKG NSR, T wave inversions appreciated in aVF/V3. No ST segment changes, heart block, or pauses. QTC 478 Denies syncope/orthostasis/low blood pressure prior to this Monitor on telemetry, echo pending, given chest pain which spontaneously resolved while patient was having a laceration sutured will trend troponin. Initial high-sensitivity troponin normal -CThead: No acute findings. Posterior right scalp contusion. No fracture - Cervical spine CT: No fracture or subluxation Patient has been seen by neurology for intermittent dizziness and with a negative CTAhead and neck, and negative MRI. No evidence of acute stroke/large vessel occlusion/aneurysms on 03/01/2022 evaluation. Chronic gait ataxia was noted. DOAC and aspirin held Anemia Patient with history of anemia/iron deficiency at baseline Hemoglobin actually above prior baseline, 11.9 in ER Due to extensive bleeding from scalp laceration and difficult reapproximation/staple repair is recommended for hemoglobin trend and observation overnight H&H trended every 8 hours No continued bleeding at hospitalist assessment Hypothyroidism Continue Synthroid COPD Continue Trelegy/formulary equivalent No wheezing, no evidence of acute exacerbation Prior PE Maintained on Eliquis 5 mg p.o. twice daily. This is been held due to extensive bleeding as noted above History of executive function deficit/executive dementia No acute change in management Anxiety Continue alprazolam, bupropion, imipramine Hypertension Continue indapamide Diet: Heart healthy Disposition: Medical telemetry for cardiac observation and bleeding monitoring CODE STATUS: Full code DVT prophylaxis: SCDs, defer pharmacal prophylaxis in the setting of acute bleed (2) Scalp laceration: (3) Chest pain: (4) COPD (chronic obstructive pulmonary disease): (5) Generalized anxiety disorder: (6) Hypothyroidism: (7) Hypertension: (8) Pulmonary embolism: (9) Multiple pulmonary nodules: History of Present Illness Primary Care Provider: Pravin Drew MD Keira is a 76-year-old female with past medical history of carotid stenosis, frontotemporal dementia, esophageal dysphagia, nontoxic goiter, pulmonary nodules, lumbar radiculopathy, dyslipidemia, depression, hypothyroidism, lipomas, PE, basilar artery stenosis, balance impairment and neurologic gait disorder, anemia, and COPD who presents after a fall while walking in her [employer] without syncope. Patient did strike her head and has a posterior scalp laceration and with significant bleeding. CThead: No acute findings. Posterior right scalp contusion. No fracture Cervical spine CT: No fracture or subluxation No leukocytosis. Hemoglobin 11.9 from last measurement 11.4. Sodium normal, potassium normal, creatinine on admission 0.92 with normal baseline. Weakness. WHile in er had an episode of severe chest pain, now chest pain free. ASA deferred due to significant bleeding. Keira is seen at the bedside. She reports that her head feels okay, but she is concerned about taking her blood thinner tonight. She denies headache and pain at time bedside assessment. She reports that she had an episode of chest pain which was pressure-like in quality 10 while her head was being stapled but is currently pain-free. Did not have shortness of breath or diaphoresis with this. Denies chest pain leading up to her fall. She reports that when she fell she did feel a little bit lightheaded, but did not pass out. Did not have chest pain at that time. Has not been ill recently. Denies fevers, chills, sweats, difficulty breathing, diarrhea, constipation, nausea, and room spinning/vertigo. Did not take medications this morning. Denies low blood pressure. Attempted to call daughter to help reconcile due to history of dementia, voicemail was left. Discussed with ER provider, due to extensive bleeding with arterial bleed requiring repair and martha is recommended both for syncopal work-up and for hemoglobin trending overnight Medical History: Reviewed Medications: Reviewed Surgical History: Reviewed Allergies: Reviewed Social History: Reviewed Code Status: Full code Allergies Allergy/AdvReac Type Severity Reaction Status Date / Time adhesive tape AdvReac Mild Rash Verified 03/22/22 11:16 amoxicillin AdvReac Mild YEAST Verified 03/22/22 11:16 INFECTIONS levofloxacin AdvReac Mild NERVOUS Verified 03/22/22 11:16 Home Medications Medication Instructions Recorded Confirmed Type Lactobacil.acidophilus-Bifido.animalis 1 cap PO QAM ##0 11/08/16 03/22/22 History 5 billion cell sprinkle capsule (Probiotic) fluticasone propionate 50 2 spray SANTY DAILY PRN Nasal 11/08/16 03/22/22 History mcg/actuation nasal Congestion ##0 spray,suspension (Flonase Allergy Relief) multivitamin 1 tab PO QAM #0 tabs 11/08/16 03/22/22 History azelastine 137 mcg (0.1 %) nasal 2 spray intranasal BID #3 ea 06/14/20 03/22/22 Rx spray aerosol aspirin 81 mg tablet,delayed 81 mg PO QAM #90 tabs 03/11/21 03/22/22 Rx release imipramine HCl 50 mg tablet 150 mg PO HS #270 tabs 05/11/21 03/22/22 Rx levothyroxine 50 mcg tablet 50 mcg PO DAILY #90 tabs 05/19/21 03/22/22 Rx (Synthroid) bupropion HCl 150 mg 24 hr tablet, 150 mg PO QAM #90 tabs 06/17/21 03/22/22 Rx extended release (Wellbutrin XL) venlafaxine 75 mg capsule,extended 75 mg PO HS #90 caps 10/25/21 03/22/22 Rx release 24 hr B6 0.85 mg-folic 200 2 tab PO DAILY 10/26/21 03/22/22 History [id number]-xptyzgfmkdan oral chewable tablet (Neuriva Plus) atorvastatin 80 mg tablet 80 mg PO DAILY #90 tabs 10/26/21 03/22/22 Rx melatonin 10 mg tablet 10 mg PO HS PRN Sleep 10/26/21 03/22/22 History potassium chloride 8 mEq 8 meq PO QAM #90 tabs 10/26/21 03/22/22 Rx tablet,extended release alprazolam 1 mg tablet (Xanax) 2 mg PO HS #180 tabs 12/12/21 03/22/22 Rx Saccharomyces boulardii 250 mg 250 mg PO BID #20 caps 12/24/21 03/22/22 Rx capsule (Florastor) apixaban 5 mg tablet (Eliquis) 5 mg PO BID #180 tabs 12/28/21 03/22/22 Rx famotidine 40 mg tablet 40 mg PO DAILY #90 tabs 01/12/22 03/22/22 Rx venlafaxine 150 mg 150 mg PO QAM #90 caps 01/18/22 03/22/22 Rx capsule,extended release 24 hr pantoprazole 40 mg tablet,delayed 40 mg PO BID #180 tabs 02/03/22 03/22/22 Rx release albuterol sulfate 90 mcg/actuation 1 - 2 puff inhalation Q4H PRN SOB 03/21/22 03/22/22 Rx aerosol inhaler #3 ea fluticasone fur. 100 mcg-umeclid 1 inh inhalation DAILY #60 ea 03/21/22 03/22/22 Rx 62.5 mcg-vilant 25 mcg inhalat.powder (Trelegy Ellipta) indapamide 1.25 mg tablet 1.25 mg PO QAM #90 tabs 03/24/22 Rx Past Med/Surg History Medical History Abnormal chest CT Acquired deviated nasal septum Cardiac murmur Chronic obstructive pulmonary disease Chronic rhinitis Depression Dyslipidemia Former smoker Generalized anxiety disorder Generalized osteoarthritis of multiple sites GERD (gastroesophageal reflux disease) GERD (gastroesophageal reflux disease) Hearing deficit Hiatal hernia Hypertension Hypothyroidism Internal hemorrhoids Knee pain, left Laryngopharyngeal reflux Lumbar radiculopathy Multiple lipomas Multiple pulmonary nodules Nontoxic multinodular goiter Osteoarthritis Poor historian Pulmonary embolism Transient ischemic attack (TIA) Tricuspid regurgitation Tubular adenoma of colon VAIN (vaginal intraepithelial neoplasia) Surgical History H/O removal of cyst History of arthroscopy History of breast biopsy History of cataract surgery History of cholecystectomy History of colonoscopy History of dilatation and curettage History of esophagogastroduodenoscopy (EGD) History of eye surgery History of oral surgery History of thyroidectomy, subtotal History of tonsillectomy History of tooth extraction History of total abdominal hysterectomy and bilateral salpingo-oophorectomy History of tubal ligation S/P excision of lipoma (08/08/19) Family History Grandmother Family history of diabetes mellitus MATERNAL Mother Family hx of colon cancer Colorectal cancer Father Coronary heart disease Daughter Slow to wake up after anesthesia Denies family history of Ovarian cancer Prostate cancer Myocardial infarction Breast cancer Social History Smoking Status: Former smoker Tobacco Type: Cigarettes Second Hand Exposure: Yes; Hx Alcohol Use: No Hx Substance Use: No Preferred Language: Persian Communication Ability: Effective Plastic Boat Buffer Required: No Beliefs That Will Affect Care: None marital status: Current Living Situation: Alone Current Living Situation Comment: Daughter lives with her current occupational status: retired Feels Safe at Home: Yes Dental Care, Regularly: Yes Physical Activity Frequency: Does not Exercise Seatbelt Use: always Sunscreen Use: No Assistive Devices: Cane Review of Systems Review of Systems: All systems reviewed & are unremarkable except as noted in HPI & below Physical Exam Physical Exam: General: Intact to name and place. NAD. Cooperative. HEENT: Posterior scalp with laceration, several martha in place. No active bleeding. Matted blood at posterior no carotid bruits. Vision and hearing grossly intact Pulm: CTAB A&P. -wheezes, -rales, -rhonchi. Symmetrical chest rise. No increase in work of breathing. No respiratory distress. Cardiac: RRR, -mrg. Radial pulses intact and symmetrical. Abdominal: Nontender, nondistended, soft. BS present. Extremities: Warm, dry. No edema Results & Data Results & Data ([facility]) Vital Signs (Past 12 Hours) Vital Signs Temp Pulse Pulse Resp BP BP Pulse Ox 03/26/22 11:30 65 16 126/51 L 90 03/26/22 10:23 64 18 143/70 H 99 03/26/22 09:51 36.7 C 67 20 174/77 H 97 O2 Del Method 03/26/22 11:30 Room Air 03/26/22 10:23 Room Air 10/30/22 09:51 Room Air Code Status & VTE Plan VTE Prophylaxis Plan VTE Prophylaxis will be ordered: Yes PG Care Time/CCT Total # of Minutes Spent Total Time Spent with Patient: Total time spent is greater than 50% in coordination of care (as documented) at patient's floor/unit and/or counseling patient: Coding Level of Care Code INT OBSERVATION CARE 50M LVL 2 Diagnoses Fall W19.XXXA Scalp laceration S01.01XA Chest pain R07.9 COPD (chronic obstructive pulmonary disease) J44.9 Generalized anxiety disorder F41.1 Hypothyroidism E03.9 Hypertension I10 Pulmonary embolism I26.99 Multiple pulmonary nodules R91.8
[2022-03-26] MEDS ORDERED: HYDROmorphone INJ 0.5 MG/0.5 ML SYR IV PRN (16:48)
[2022-03-26 17:20] LABS: Hematocrit (blood only) 33.7 % (34.1-44.9); Hemoglobin 10.7 g/dl (12.0-16.0)
[2022-03-26] MEDS ORDERED: ALPRAZolam 0.5 MG TABLET PO PRN (17:57)
[2022-03-26] MEDS: FERROUS SULFATE 325 MG TAB PO SCH (18:07)
[2022-03-26] MEDS: PANTOprazole 40 MG TAB PO SCH (18:25)
[2022-03-26] MEDS: ALPRAZolam 0.5 MG TABLET PO SCH (21:52)
[2022-03-26] MEDS: VENLAFAXINE HCL XR 75 MG CAPXR PO SCH (21:52)
[2022-03-26] MEDS: ACETAMINOPHEN 325 MG TAB PO PRN (21:52)
[2022-03-26] MEDS: LEVOTHYROXINE SODIUM 50 MCG TABLET PO SCH (21:52)
[2022-03-26] MEDS: IMIPRAMINE HCL 50 MG TAB PO SCH (21:52)
[2022-03-27 00:56] LABS: Hematocrit (blood only) 35.3 % (34.1-44.9); Hemoglobin 11.1 g/dl (12.0-16.0)
[2022-03-27] MEDS: ACETAMINOPHEN 325 MG TAB PO PRN ×2 (02:05→19:46)
--- NOTE | 2022-03-27 05:23 | Electrocardiogram Report ---
Test Reason : Blood Pressure : / mmHG Vent. Rate : 065 BPM Atrial Rate : 065 BPM P-R Int : 142 ms QRS Dur : 118 ms QT Int : 466 ms P-R-T Axes : 068 057 076 degrees QTc Int : 484 ms Poor data quality, interpretation may be adversely affected Sinus rhythm with Premature atrial complexes Septal infarct (cited on or before 24-DEC-2021) Abnormal ECG When compared with ECG of 15-FEB-2022 14:59, Premature atrial complexes are now Present Confirmed by Adonay Walker ([id number]) on 03/27/2022 5:23:31 AM Referred By: REFERRED SELF Confirmed By:Adonay Walker
--- NOTE | 2022-03-27 05:27 | Electrocardiogram Report ---
Test Reason : Blood Pressure : / mmHG Vent. Rate : 068 BPM Atrial Rate : 068 BPM P-R Int : 170 ms QRS Dur : 100 ms QT Int : 450 ms P-R-T Axes : -11 016 -16 degrees QTc Int : 478 ms Normal sinus rhythm Septal infarct (cited on or before 24-DEC-2021) Abnormal ECG When compared with ECG of 26-MAR-2022 09:57, Premature atrial complexes are no longer Present T wave inversion now evident in Inferior leads Confirmed by Adonay Walker ([id number]) on 03/27/2022 5:26:37 AM Referred By: REFERRED SELF Confirmed By:Adonay Walker
[2022-03-27 08:46] LABS: Hematocrit (blood only) 33.5 % (34.1-44.9); Hemoglobin 10.8 g/dl (12.0-16.0)
[2022-03-27] MEDS: ATORVASTATIN 40 MG TAB PO SCH (08:47)
[2022-03-27] MEDS: VENLAFAXINE HCL XR 150 MG CAPXR PO SCH (08:47)
[2022-03-27] MEDS: buPROPion XL 150 MG TABCR PO SCH (08:47)
[2022-03-27] MEDS: PANTOprazole 40 MG TAB PO SCH ×2 (08:48→15:37)
[2022-03-27] MEDS: FLUTICASONE FUROATE 100MCG 14 PUFFS/INHALER INH SCH (08:48)
[2022-03-27] MEDS: UMECLIDINIUM/VILANTEROL 62.5/25MCG 7 PUFFS/INHALER INH SCH (08:49)
[2022-03-27] MEDS ORDERED: NON-FORMULARY MEDICATION (Fluticasone-Umeclidin-Vilanter [Trelegy Ellipta] 100-62.5-25 mcg INH SCH (09:00)
[2022-03-27] MEDS ORDERED: INDAPAMIDE 1.25 MG TAB PO SCH (09:00)
--- NOTE | 2022-03-27 10:01 | XCELERA ---
[id number] \\[id number]
--- NOTE | 2022-03-27 15:11 | Hospitalist Progress Note ---
Date of Service March 27, 2022 Assessment & Plan (1) Orthostatic hypotension: Plan: Patient's orthostatic BPs today were markedly abnormal with 45 point drop from lying to standing position. This could be the major contributor to her falls, or at least one of the fa ctors. I am still concerned that arrhythmia could be a potential cause of her falls as well. NS bolus of 1 L given this afternoon, then maintenance fluids of 80cc/hr of isotonic fluids. Check orthostatic BPs qshift. If orthostasis persists despite adequate hydration consider checking a cortisol level. Could also consider florinef or midodrine. (2) Fall: Plan: 2nd to #1? arrhythmia? medication side effects (is on 150mg of imipramine at HS)? other? Treat #1. PT, OT evals. Patient was referred for outpatient jammer operator by Dr Villasenor - would have nurse navigator call to confirm this has been processed. Other option would be loop recorder implantation by EP down the line if patient is noncompliant with wearing external monitor, etc. Consider d/c of imipramine. Again extensive outpatient w/u by neurology recently including MRI brain, CTA head/neck. Echo here wnl. Tele here thus far negative. Some ? of basilar stenosis on past imaging, but recent CTA did not show such. (3) Balance disorder: Plan: as documented by neurology, Dr Villasenor 2nd to peripheral neuropathy? other condition? PT, OT see discussion above (4) Scalp laceration: Plan: s/p staple repair in ER yesterday lac 2nd to fall in her home Eliquis currently on hold (5) Chest pain: Plan: vague, occurred yesterday following her fall trops neg echo wnl tele wnl does have family h/o CAD -- consider outpatient ischemic eval she herself has not been having any ischemic symptoms leading up to her fall (6) COPD (chronic obstructive pulmonary disease): Plan: no issues at this time (7) Generalized anxiety disorder: Plan: cont home meds (8) Hypothyroidism: Plan: TSH November 2021 wnl cont synthroid (9) Hypertension: Plan: only takes Lozol at home hold such as we Rx #1 above (10) Pulmonary embolism: Plan: 04/2020 with associated DVT. Has been on Eliquis since that time. (11) Multiple pulmonary nodules: Plan: has seen pulmonary and oncology in the past for such defer to outpatient providers (12) Fronto-temporal dementia: Plan: suspected - as documented by Dr Villasenor - [facility] [place] Neuro (13) UTI (urinary tract infection): Plan: u/a suspicious for UTI while awaiting culture -- keflex 500mg BID Plan cont to hold eliquis due to scalp lac but suspect we can resume at d/c await PT/OT evals can d/c home once orthostasis is resolved Admission and Anticipated Discharge Date Admission Date: March 26, 2022 Subjective patient recounts the events of her fall at home again reiterates that she had NO presyncope or syncope NO loss of consciousness; was awake the whole time she states "I just went down" she had been feeling fine in the hours and days leading up to this fall today, however, she "feels weak" she has had at least 3 major falls like this over the recent past she does state she feels her heart racing at times at home denies dyspnea denies chest pain telemetry since admission - no events seen Review of Systems Review of Systems: gen - no fevers or chills cv - no orthopnea, occasional palpitations/heart racing, ?vague chest discomfort sometime yesterday after her fall pulm - no cough or dyspnea GI - no nausea or emesis outpatient neurology notes reviewed -- recent MRI brain neg; recent CTA head/neck completely normal; Dr Villasenor was considering an event-monitor to r/o arrhythmia as cause of falls Physical Exam Physical Exam: gen - NAD, a little agitated at times mouth - MM pasty eyes - PERRL neck - no JVD heart - RRR, s1 s2, 1/6 JEREMIE LUSB lungs - CTA b/l abd - soft NT ND BS+ ext - no edema, pulses 2+ b/l skin - posterior scalp - martha intact from head laceration; mild-moderate bruising/swelling of posterior scalp/occiput; no active bleeding Results & Data Results & Data ([facility]) Vital Signs (Past 12 Hours) Vital Signs Temp Pulse Pulse Resp BP BP Pulse Ox 03/27/22 14:38 37.1 C 78 18 122/55 L 97 03/27/22 11:53 36.6 C 66 16 114/61 97 03/27/22 07:47 36.4 C L 88 20 114/68 100 03/27/22 08:00 68 O2 Del Method 03/27/22 14:38 Room Air 03/27/22 11:53 Room Air 03/27/22 07:47 Room Air 03/27/22 08:00 Laboratory Results Laboratory Results - last 24 hr 03/27/22 03/27/22 03/27/22 08:34 10:01 17:15 Hgb 10.8 L Hct 33.5 L Troponin I High Sens 5.6 Urine Color Yellow Urine Appearance Clear Urine pH 7.0 Ur Specific Morrison 1.017 Urine Protein Negative Urine Glucose (UA) Negative Urine Ketones Negative Urine Blood 1+ H Urine Nitrite Negative Urine Bilirubin Negative Urine Urobilinogen Negative Ur Leukocyte Esterase 2+ H Urine WBC (Auto) 10-30 H Urine RBC (Auto) 5-10 H U Hyaline Cast (Auto) 1-5 U Epithel Cells (Auto) 5-10 H Urine Bacteria (Auto) 1+ H Diagnostic Findings Echo - preserved EF, normal valve function PG Care Time/CCT Total # of Minutes Spent Total Time Spent with Patient: Total time spent is greater than 50% in coordination of care (as documented) at patient's floor/unit and/or counseling patient: Coding Level of Care Code 73442 Subseq Obs Care Lvl 3 Diagnoses Orthostatic hypotension I95.1 Fall W19.XXXA Balance disorder R26.89 Scalp laceration S01.01XA Chest pain R07.9 COPD (chronic obstructive pulmonary disease) J44.9 Generalized anxiety disorder F41.1 Hypothyroidism E03.9 Hypertension I10 Pulmonary embolism I26.99 Multiple pulmonary nodules R91.8 Fronto-temporal dementia G31.09; F02.80 UTI (urinary tract infection) N39.0
[2022-03-27] MEDS ORDERED: SODIUM CHLORIDE 0.9% 1000ML 1,000 ML IV ONE (15:17)
[2022-03-27] MEDS: SODIUM CHLORIDE 0.9% 1000ML 1,000 ML IV SCH (16:58)
[2022-03-27 17:45] LABS: Appearance Urine Clear (Clear); Bilirubin Urine Negative (Negative); Blood Urine 1+ (Negative); Color Urine Yellow; Glucose Urine UA Negative (Negative); Ketones Urine Negative (Negative); Leukocyte Esterase Urine 2+ (Negative); Nitrite Urine Negative (Negative); Protein Urine Negative (Negative); Specific Gravity Urine 1.017 (1.000-1.030); Urobilinogen Urine Negative (Negative)
[2022-03-27 18:04] LABS: Bacteria Urine Automated 1+ (Negative)
[2022-03-27] MEDS: IMIPRAMINE HCL 50 MG TAB PO SCH (19:47)
[2022-03-27] MEDS: VENLAFAXINE HCL XR 75 MG CAPXR PO SCH (19:47)
[2022-03-27] MEDS: LEVOTHYROXINE SODIUM 50 MCG TABLET PO SCH (19:48)
[2022-03-27] MEDS: ALPRAZolam 0.5 MG TABLET PO SCH (19:48)
[2022-03-27] MEDS: cephALEXin 500 MG CAP PO SCH (21:42)
[2022-03-28] MEDS: ACETAMINOPHEN 500 MG TAB PO PRN ×2 (02:29→15:34)
[2022-03-28] MEDS: LIDOCAINE 5% OINT 30 GM TUBE EXT PRN ×2 (02:30→17:49)
[2022-03-28] MEDS: SODIUM CHLORIDE 0.9% 1000ML 1,000 ML IV SCH ×2 (05:28→17:51)
[2022-03-28 07:17] LABS: BUN Creatinine Ratio 17.5 (10-20); Creatinine Clr Calc Pharmacy 50.9 ml/min; Est GFR (African American) 66.7 ml/min; Est GFR (Non-African American) 57.5 ml/min; Magnesium 1.6 mg/dl (1.7-2.4); Potassium 3.2 mmol/L (3.5-5.1)
[2022-03-28] MEDS: VENLAFAXINE HCL XR 150 MG CAPXR PO SCH (07:49)
[2022-03-28] MEDS: ATORVASTATIN 40 MG TAB PO SCH (07:49)
[2022-03-28] MEDS: cephALEXin 500 MG CAP PO SCH ×2 (07:49→22:10)
[2022-03-28] MEDS: PANTOprazole 40 MG TAB PO SCH ×2 (07:49→15:30)
[2022-03-28] MEDS: UMECLIDINIUM/VILANTEROL 62.5/25MCG 7 PUFFS/INHALER INH SCH (07:50)
[2022-03-28] MEDS: FLUTICASONE FUROATE 100MCG 14 PUFFS/INHALER INH SCH (07:50)
[2022-03-28] MEDS: buPROPion XL 150 MG TABCR PO SCH (09:33)
[2022-03-28] MEDS ORDERED: POTASSIUM CHLORIDE CRTAB 20 MEQ TABCR PO STA (11:19)
[2022-03-28] MEDS: MAGNESIUM SULFATE / D5W 1 GM/100 ML BAG IV SCH ×2 (11:29→13:14)
[2022-03-28] MEDS: FERROUS SULFATE 325 MG TAB PO SCH (15:31)
--- NOTE | 2022-03-28 19:23 | Hospitalist Progress Note ---
Date of Service March 28, 2022 Assessment & Plan (1) Orthostatic hypotension: Plan: Patient's orthostatic BPs were markedly abnormal with 45 point drop from lying to standing position. This is improving now after NS hydration This could be the major contributor to her falls, or at least one of the factors. I am still concerned that arrhythmia could be a potential cause of her falls as well. -continue maintenance fluids of 80cc/hr of isotonic fluids. -Check orthostatic BPs qshift. -since orthostasis persists despite adequate hydration -check cortisol level in the AM. -Could consider florinef or midodrine. -add RILEY hose -decrease imipramine to 125mg for now and then slowly wean to 100mg hs after that-she is agreeable to such -consult Cardiology for loop recorder placement s pt prefers this over external ch[facility] event monitor (2) Fall: Plan: 2nd to orthostasis vs arrhythmia? medication side effects (is on 150mg of imipramine at HS)? PT, OT evals. extensive outpatient w/u by neurology recently including MRI brain, CTA head/neck. Echo here wnl. Tele here thus far negative. Some ? of basilar stenosis on past imaging, but recent CTA did not show such. -loop recorder and workup as above (3) Balance disorder: Plan: as documented by neurology, Dr Villasenor 2nd to peripheral neuropathy? other condition? PT, OT see discussion above (4) Scalp laceration: Plan: s/p staple repair in ER on admission lac 2nd to fall in her home Eliquis currently on hold but can likely restart tomorrow -will need martha removed in 1 week (5) Chest pain: Plan: vague, occurred following her fall trops neg echo wnl tele wnl does have family h/o CAD -- consider outpatient ischemic eval she herself has not been having any ischemic symptoms leading up to her fall (6) COPD (chronic obstructive pulmonary disease): Plan: no issues at this time (7) Generalized anxiety disorder: Plan: cont home meds-is on venlafaxine and bupropion and imipramine-reducing dose (8) Hypothyroidism: Plan: TSH November 2021 wnl cont synthroid (9) Hypertension: Plan: only takes Lozol at home hold lozol for orthostasis (10) Pulmonary embolism: Plan: 04/2020 with associated DVT. Has been on Eliquis since that time. (11) Multiple pulmonary nodules: Plan: has seen pulmonary and oncology in the past for such defer to outpatient providers (12) Fronto-temporal dementia: Plan: suspected - as documented by Dr Villasenor - [facility] [place] [facility] (13) UTI (urinary tract infection): Plan: u/a suspicious for UTI Ur cx negative -dc keflex 500mg BID after 3rd day on 03/29 Plan cont to hold eliquis due to scalp lac but suspect we can resume at d/c PT/OT evals say return home with / care which she has Dispo-possibly tomorrow discharge Admission and Anticipated Discharge Date Admission Date: March 26, 2022 Subjective Pt feels not quite as dizzy today with standing. Headache is improved down to a 6/10 in severity. Tele with NSR rates 60-80s Review of Systems Review of Systems: All systems reviewed & are unremarkable except as noted in HPI & below Physical Exam Physical Exam: gen - NAD, a little agitated at times eyes -anicteric sclerae neck - no JVD heart - RRR, s1 s2,no mgr lungs - CTA b/l abd - soft NT ND BS+ ext - no edema, pulses 2+ b/l skin - posterior scalp - martha intact from head laceration; mild-moderate bruising/swelling of posterior scalp/occiput; no active bleeding Results & Data Results & Data ([facility]) Vital Signs (Past 12 Hours) Vital Signs Temp Pulse Pulse Resp BP Pulse Ox Pulse Ox 03/28/22 17:00 95 03/28/22 17:01 75 03/28/22 16:00 36.6 C 71 18 154/68 H 96 03/28/22 12:00 36.5 C 73 18 149/91 H 98 03/28/22 08:00 36.5 C 66 18 135/67 98 03/28/22 07:33 64 O2 Del Method O2 Del Method 03/28/22 17:00 Room Air 03/28/22 17:01 03/28/22 16:00 Room Air 03/28/22 12:00 Room Air 03/28/22 08:00 Room Air 03/28/22 07:33 Laboratory Results 03/28/22 Range/Units 05:58 Sodium 142 (136-145) mmol/L Potassium 3.2 L (3.5-5.1) mmol/L Chloride 108 H (98-107) mmol/L Carbon Dioxide 28 (21-32) mmol/L Anion Gap 6 (3-11) BUN 17 (6-23) mg/dl Creatinine 0.97 (0.6-1.2) mg/dl Est Cr Clr Drug Dosing 50.9 ml/min Est GFR ( Amer) 66.7 ml/min Est GFR (Non-Af Amer) 57.5 ml/min BUN/Creatinine Ratio 17.5 (10-20) Glucose 99 (70-99(Fasting)) mg/dl Calcium 9.0 (8.5-10.1) mg/dl Magnesium 1.6 L (1.7-2.4) mg/dl PG Care Time/CCT Total # of Minutes Spent Total Time Spent with Patient: Total time spent is greater than 50% in coordination of care (as documented) at patient's floor/unit and/or counseling patient: Coding Level of Care Code 71722 Subseq Hosp Care Lvl 2 Diagnoses Orthostatic hypotension I95.1 Fall W19.XXXA Balance disorder R26.89 Scalp laceration S01.01XA Chest pain R07.9 COPD (chronic obstructive pulmonary disease) J44.9 Generalized anxiety disorder F41.1 Hypothyroidism E03.9 Hypertension I10 Pulmonary embolism I26.99 Multiple pulmonary nodules R91.8 Fronto-temporal dementia G31.09; F02.80 UTI (urinary tract infection) N39.0
[2022-03-28] MEDS: VENLAFAXINE HCL XR 75 MG CAPXR PO SCH (22:09)
[2022-03-28] MEDS: ALPRAZolam 0.5 MG TABLET PO SCH (22:09)
[2022-03-28] MEDS: LEVOTHYROXINE SODIUM 50 MCG TABLET PO SCH (22:10)
[2022-03-28] MEDS: IMIPRAMINE HCL 25 MG TAB PO SCH (22:42)
[2022-03-29] MEDS: ACETAMINOPHEN 500 MG TAB PO PRN ×2 (00:19→16:20)
[2022-03-29] MEDS: buPROPion XL 150 MG TABCR PO SCH (08:28)
[2022-03-29] MEDS: ATORVASTATIN 40 MG TAB PO SCH (08:28)
[2022-03-29] MEDS: cephALEXin 500 MG CAP PO SCH ×2 (08:29→20:29)
[2022-03-29] MEDS: VENLAFAXINE HCL XR 150 MG CAPXR PO SCH (08:29)
[2022-03-29] MEDS: FLUTICASONE FUROATE 100MCG 14 PUFFS/INHALER INH SCH (08:29)
[2022-03-29] MEDS: UMECLIDINIUM/VILANTEROL 62.5/25MCG 7 PUFFS/INHALER INH SCH (08:30)
[2022-03-29] MEDS: PANTOprazole 40 MG TAB PO SCH ×2 (08:31→16:20)
[2022-03-29 08:33] LABS: BUN Creatinine Ratio 17.2 (10-20); Calcium 9.1 mg/dl (8.5-10.1); Creatinine Clr Calc Pharmacy 56.9 ml/min; Est GFR (African American) 76.1 ml/min; Est GFR (Non-African American) 65.6 ml/min; Magnesium 1.9 mg/dl (1.7-2.4); Potassium 3.6 mmol/L (3.5-5.1)
[2022-03-29] MEDS ORDERED: LIDOCAINE 1% LOCAL 20 ML VIAL ONE (09:58)
--- NOTE | 2022-03-29 10:30 | Cardiology Consultation ---
Date of Consultation March 29, 2022 Assessment & Plan (1) Collapse: Plan 1. Collapse: The patient did not report losing consciousness during this episode. The circumstances are unclear she did not report any specific symptoms other than falling on the floor. She has a long history of some gait instability and dizziness. Possibly a neurocognitive disorder. She certainly under lot of stress at home and perhaps this plays a role in these spells as well. He was notably orthostatic during her admission but her volume has been repleted and she is not currently describe symptoms of orthostasis. Given the lack of prodrome and sudden nature of the episodes there is some concern for a cardiac arrhythmia. I did describe the option of ambulatory monitoring with a workable device. However, she is more interested in an implantable device both ports longevity and convenience. We will proceed with loop recorder implant later today. Alternate etiologies for her episodes are still being considered. History of Present Illness Reason for Consultation: Traumatic fall Requesting Physician: Junior Attending Physician: Jennifer Pacheco MD History of Present Illness The patient is a 76-year-old woman admitted after a traumatic injury to her head. The patient states that she was at home and feeling well. She had been ambulating around her residence when she suddenly fell to the ground. She did not report any specific prodrome. She was not dizzy or lightheaded. She apparently had been standing for several minutes. She did not recall any sense of palpitation. She did not feel like her legs were weak or gave out. She did not report an actual loss of consciousness. She did suffered injury and was brought to the hospital. Initial evaluation discovered her to be notably orthostatic. She did have some symptoms of orthostasis during the early part of her admission. She was given fluid resuscitation and reports ambulating around her room currently without symptoms. She has been followed previously for persistent dizziness and gait instability. He has had evaluation which included advanced imaging of her brain. 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 It seems she was subsequently placed on both anti-platelet and anticoagulant therapy. She reports having similar falls in the past, but had some difficulty describing details of these events. Again, she did not report loss of consciousness. She generally walks with a cane at home but when she is feeling good she sometimes does not use a cane. Allergies Allergy/AdvReac Type Severity Reaction Status Date / Time adhesive tape AdvReac Mild Rash Verified 03/26/22 14:57 amoxicillin AdvReac Mild YEAST Verified 03/26/22 14:57 INFECTIONS levofloxacin AdvReac Mild NERVOUS Verified 03/26/22 14:57 Home Medications Medication Instructions Recorded Confirmed Type Lactobacil.acidophilus-Bifido.animalis 1 cap PO QAM ##0 11/08/16 03/26/22 History 5 billion cell sprinkle capsule (Probiotic) fluticasone propionate 50 2 spray SANTY DAILY PRN Nasal 11/08/16 03/26/22 History mcg/actuation nasal Congestion ##0 spray,suspension (Flonase Allergy Relief) multivitamin 1 tab PO QAM #0 tabs 11/08/16 03/26/22 History azelastine 137 mcg (0.1 %) nasal 2 spray intranasal BID #3 ea 06/14/20 03/26/22 Rx spray aerosol aspirin 81 mg tablet,delayed 81 mg PO QAM #90 tabs 03/11/21 03/26/22 Rx release imipramine HCl 50 mg tablet 150 mg PO HS #270 tabs 05/11/21 03/26/22 Rx levothyroxine 50 mcg tablet 50 mcg PO DAILY #90 tabs 05/19/21 03/26/22 Rx (Synthroid) bupropion HCl 150 mg 24 hr tablet, 150 mg PO QAM #90 tabs 06/17/21 03/26/22 Rx extended release (Wellbutrin XL) venlafaxine 75 mg capsule,extended 75 mg PO HS #90 caps 10/25/21 03/26/22 Rx release 24 hr B6 0.85 mg-folic 200 2 tab PO DAILY 10/26/21 03/26/22 History [id number]-[id number]-wutomt-rlgfoetcqvut oral chewable tablet (Neuriva Plus) atorvastatin 80 mg tablet 80 mg PO DAILY #90 tabs 10/26/21 03/26/22 Rx melatonin 10 mg tablet 10 mg PO HS PRN Sleep 10/26/21 03/26/22 History potassium chloride 8 mEq 8 meq PO QAM #90 tabs 10/26/21 03/26/22 Rx tablet,extended release alprazolam 1 mg tablet (Xanax) 2 mg PO HS #180 tabs 12/12/21 03/26/22 Rx Saccharomyces boulardii 250 mg 250 mg PO BID #20 caps 12/24/21 03/26/22 Rx capsule (Florastor) apixaban 5 mg tablet (Eliquis) 5 mg PO BID #180 tabs 12/28/21 03/26/22 Rx famotidine 40 mg tablet 40 mg PO DAILY #90 tabs 01/12/22 03/26/22 Rx venlafaxine 150 mg 150 mg PO QAM #90 caps 01/18/22 03/26/22 Rx capsule,extended release 24 hr pantoprazole 40 mg tablet,delayed 40 mg PO BID #180 tabs 02/03/22 03/26/22 Rx release albuterol sulfate 90 mcg/actuation 1 - 2 puff inhalation Q4H PRN SOB 03/21/22 03/26/22 Rx aerosol inhaler #3 ea fluticasone fur. 100 mcg-umeclid 1 inh inhalation DAILY #60 ea 03/21/22 03/26/22 Rx 62.5 mcg-vilant 25 mcg inhalat.powder (Trelegy Ellipta) indapamide 1.25 mg tablet 1.25 mg PO QAM #90 tabs 03/24/22 03/26/22 Rx Patient History Medical History Abnormal chest CT Acquired deviated nasal septum Cardiac murmur Chronic obstructive pulmonary disease Chronic rhinitis Depression Dyslipidemia Former smoker Generalized anxiety disorder Generalized osteoarthritis of multiple sites GERD (gastroesophageal reflux disease) GERD (gastroesophageal reflux disease) Hearing deficit Hiatal hernia Hypertension Hypothyroidism Internal hemorrhoids Knee pain, left Laryngopharyngeal reflux Lumbar radiculopathy Multiple lipomas Multiple pulmonary nodules Nontoxic multinodular goiter Osteoarthritis Poor historian Pulmonary embolism Transient ischemic attack (TIA) Tricuspid regurgitation Tubular adenoma of colon VAIN (vaginal intraepithelial neoplasia) Surgical History H/O removal of cyst History of arthroscopy History of breast biopsy History of cataract surgery History of cholecystectomy History of colonoscopy History of dilatation and curettage History of esophagogastroduodenoscopy (EGD) History of eye surgery History of oral surgery History of thyroidectomy, subtotal History of tonsillectomy History of tooth extraction History of total abdominal hysterectomy and bilateral salpingo-oophorectomy History of tubal ligation S/P excision of lipoma (08/08/19) Family History Grandmother Family history of diabetes mellitus MATERNAL Mother Family hx of colon cancer Colorectal cancer Father Coronary heart disease Daughter Slow to wake up after anesthesia Denies family history of Ovarian cancer Prostate cancer Myocardial infarction Breast cancer Social History Smoking Status: Former smoker Tobacco Type: Cigarettes Second Hand Exposure: No; Do You Dip or Chew Tobacco: No; Tobacco Cessation Education Requested by Patient: No Hx Alcohol Use: No Hx Substance Use: No Preferred Language: Latvian Communication Ability: 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 Some stress related to living with her daughter. Physical Exam Physical Exam: She is alert and oriented x3. Mood affect appear normal. She answered all questions appropriately. HEENT: Sclerae are anicteric. Pupils are equal and reactive to light and accommodation. Extraocular movements were intact. Stapled laceration on the occiput Neuro: Cranial nerves intact Neck: Large bruise on the right posterior aspect of the neck Lungs: Lungs are clear to auscultation bilaterally. There are no rales wheezes or rhonchi. She has normal respiratory effort without use of accessory muscles. There is normal pulmonary excursion. Cardiac: The rhythm was regular. S1 and S2 were normal. Soft systolic ejection murmur. The PMI was not markedly displaced on palpation. Extremities: Patient has bilateral radial pulses that are equal in intensity. There is no evidence cyanosis or clubbing. There was no evidence of significant peripheral edema bilaterally. Skin: There are no rashes noted on examination today. Results & Data ([facility]) Vital Signs (Past 12 Hours) Vital Signs Temp Pulse Pulse Pulse Resp BP Pulse Ox 03/29/22 10:10 36.6 C 68 68 20 181/80 H 99 03/29/22 08:00 64 03/29/22 07:50 36.4 C L 68 18 174/68 H 97 03/29/22 03:10 36.5 C 64 16 191/65 H 95 03/28/22 23:07 36.9 C 70 16 174/73 H 96 O2 Del Method 03/29/22 10:10 Room Air 03/29/22 08:00 03/29/22 07:50 Room Air 03/29/22 03:10 Room Air 03/28/22 23:07 Room Air Laboratory Results Abnormal Lab Results 03/29/22 03/29/22 03/29/22 07:20 07:20 07:20 Sodium 142 Potassium 3.6 Chloride 110 H Carbon Dioxide 29 Anion Gap 3 BUN 15 Creatinine 0.87 Est Cr Clr Drug Dosing 56.9 Est GFR ( Amer) 76.1 Est GFR (Non-Af Amer) 65.6 BUN/Creatinine Ratio 17.2 Glucose 86 Calcium 9.1 Magnesium 1.9 Cancelled Cortisol AM Sample 5.32 L Diagnostic Findings Echocardiogram performed 03/27/2022: Normal LV systolic function with ejection fraction 60-65%. Stage I diastolic dysfunction. Mild right ventricular pressure elevation at 34 mm of mercury. No significant valvular heart disease ECG Additional Comments: EKG demonstrated normal sinus rhythm with nonspecific ST and T-wave changes. PG Care Time/CCT Total # of Minutes Spent Total Time Spent with Patient: Total time spent is greater than 50% in coordination of care (as documented) at patient's floor/unit and/or counseling patient: Coding Level of Care Code 82315 Initial Inpt Care Lvl 3 Diagnoses Collapse R55
--- NOTE | 2022-03-29 10:31 | Electrophysiology Report ---
Date of Service March 29, 2022 Electrophysiology Procedure Electrophysiology Procedure Report The procedure performed: Implantation of patient activated loop recorder Staff remote mortgage underwriter: Monroe Romero MD Indication: The patient is a 76-year-old woman with history of traumatic falls. No specific prodrome, dizziness or notable syncope. Cardiac arrhythmia is suspected and she was advised to consider an implantable loop recorder for evaluation. Procedure in detail: The patient was informed of the risks benefits and alternatives to the intended procedure. They understood such and wished to proceed. The patient was taken to the electrophysiology suite where the upper chest area was prepped and draped in the usual sterile fashion. An area left lateral to the sternum in the 4th intercostal space was subsequently anesthetized using subcutaneous administration of lidocaine solution. A small incision was made at this site and implantation of the loop recorder was accomplished using a proprietary implantation tool. The small incision was subsequently closed using a single 4 0 Vicryl suture. Steri-Strips and a sterile dressing were then applied. The patient tolerated the procedure well. There were no immediate complications. The device was tested noninvasively prior to conclusion of the procedure. Equipment used: Patient activated loop recorder: Supervisor Curing Room [employer]. Model number [id number]. Serial number [id number] [employer] Electrophysiology codes Implantable Monitors Procedure 1: Implantable Monitors: [id number] Loop Recorder Implant
[2022-03-29] MEDS: SODIUM CHLORIDE 0.9% 1000ML 1,000 ML IV SCH (17:11)
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
[2022-03-29] MEDS: IMIPRAMINE HCL 25 MG TAB PO SCH (20:29)
[2022-03-29] MEDS: VENLAFAXINE HCL XR 75 MG CAPXR PO SCH (20:29)
[2022-03-29] MEDS: LEVOTHYROXINE SODIUM 50 MCG TABLET PO SCH (20:29)
[2022-03-29] MEDS: ALPRAZolam 0.5 MG TABLET PO SCH (22:36)
[2022-03-30] MEDS ORDERED: hydrALAZINE HCL 20 MG/ML VIAL IV PRN (00:17)
[2022-03-30] MEDS: PANTOprazole 40 MG TAB PO SCH ×2 (07:54→16:37)
[2022-03-30] MEDS: ATORVASTATIN 40 MG TAB PO SCH (07:54)
[2022-03-30] MEDS: VENLAFAXINE HCL XR 150 MG CAPXR PO SCH (07:54)
[2022-03-30] MEDS: buPROPion XL 150 MG TABCR PO SCH (07:54)
[2022-03-30] MEDS: FLUTICASONE FUROATE 100MCG 14 PUFFS/INHALER INH SCH (07:55)
[2022-03-30] MEDS: UMECLIDINIUM/VILANTEROL 62.5/25MCG 7 PUFFS/INHALER INH SCH (07:55)
[2022-03-30] MEDS ORDERED: COSYNTROPIN 1 MCG in SYRINGE 0 ML IV ONE (08:00)
[2022-03-30] MEDS ORDERED: APIXABAN 5 MG TABLET PO SCH (09:00)
[2022-03-30] MEDS ORDERED: ASPIRIN 81 MG ECTAB PO SCH (09:00)
[2022-03-30] MEDS: FERROUS SULFATE 325 MG TAB PO SCH (15:59)
[2022-03-30] MEDS: ACETAMINOPHEN 500 MG TAB PO PRN (16:37)
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
[2022-03-30] MEDS ORDERED: MIDODRINE HCL 2.5 MG TAB PO SCH (18:30)
[2022-03-30] MEDS ORDERED: IMIPRAMINE HCL 50 MG TAB PO SCH (21:00)
== END 2022-03-30 19:40 | disposition home or self-care (01) | DRG 261 ==
LOC: ED 09:43 → EDINP 09:43 → SUATTDRO 13:53 → 2W 16:49

== ENCOUNTER 2024-12-23 18:20 | Observation (INO) ==
--- NOTE | 2024-12-23 18:39 | Emergency Department Note ---
Impression & Plan Non-ST elevation IA (NSTEMI), Anxiety, Abnormal EKG, Hypokalemia, AAA (abdominal aortic aneurysm) ED Provider Note NAME: KEN GARCIA AGE: 79 SEX: F : 1945 ARRIVES VIA: Walk-In INFORMANT: Patient, ED PROVIDER(S): Pravin Ron DO CHIEF COMPLAINT: Anxiety HPI: The patient is a 79-year-old female who presented to the emergency department for anxiety. The patient normally takes Xanax. She states that she recently stopped her Xanax at the request of her primary care physician. The patient states that she has not had any Xanax or any of her other medications over the course the last 6 or 7 days. She denies having any nausea or vomiting. She denies having any chest pain or difficulty breathing. The patient was brought back immediately as an injury alert because she was backing up to sit down and missed her chair and landed on her butt. She denies having any pain other than her buttocks. ROS: See above HPI for pertinent positives & negatives. A total of 10 systems reviewed and were otherwise negative. PAST MEDICAL HISTORY: See Below PAST SURGICAL HISTORY: See Below FAMILY HISTORY: See Below SOCIAL HISTORY: See Below HOME MEDICATIONS: See Below ALLERGIES: See Below VITALS: See Below PHYSICAL EXAMINATION: GENERAL: Patient is awake alert in no acute distress patient is resting comfortably and showing no signs of anxiety EYES: The conjunctivae are clear. The pupils are round and reactive. EARS, NOSE, MOUTH AND THROAT: The nose is without any evidence of any deformity. NECK: The neck is nontender and supple. RESPIRATORY: Normal respiratory effort is noted there is no evidence of wheezing rhonchi or rales CARDIOVASCULAR: Regular rate and rhythm noted there no murmurs rubs or gallops normal S1 normal S2. GASTROINTESTINAL: The abdomen is soft. Abdomen is nontender. BACK: No midline tenderness or or step-off noted range of motion in flexion extension as well as rotation no signs of muscle spasm noted MUSCULOSKELETAL/EXTREMITIES: There is no evidence of gross deformity full range of motion is noted in the hips and shoulders. SKIN: There is no obvious evidence of any rash. There are no petechiae, pallor or cyanosis noted. NEUROLOGIC: Patient is awake alert and oriented x3 strength is symmetric patellar reflexes are 2+ bilaterally PSYCH: The patient is awake and alert. She is somewhat anxious appearing. She is denying any suicidal homicidal ideation. MEDICAL DECISION MAKING: The patient is a 79-year-old female who presented to the emergency department for evaluation of anxiety. The patient had multiple complaints including some difficulty breathing but she states she has a history of COPD. The patient states she went to sit down and she fell onto her buttocks. The patient was made an injury alert but I do not feel this is consistent with her overall presentation. I discussed the patient's laboratory and radiographic studies with her. She was found to have an elevation in her troponin. EKG showed ST segment abnormalities which appear consistent with her previous tracing but somewhat increased. The patient was treated with aspirin in the emergency department. The patient was also given Xanax. She has been stopping her Xanax recently and thought this was causing some of her anxiety. I would wonder if this could be some sort of cardiac equivalent given her elevated troponin. I discussed the patient's condition with the on-call [facility] hospitalist. They have agreed to evaluate the patient in the emergency department for further management and disposition. The patient did have a CT angiography of the chest because of the abnormal troponin. This does not show signs of venous thromboembolic disease but did show signs of a AAA. Formal CT of the abdomen pelvis was also obtained. She does have a AAA but this does not appear to be causing her symptoms at this time and she has no abdominal pain on physical exam. Triage Nursing notes reviewed. Prior medical records reviewed Vital Signs: reviewed and remarkable for no significant abnormalities Differential diagnosis: Infection, dehydration, metabolic abnormality, hypo/hyperglycemia, electrolyte disturbance, anemia, hypoxia, cardiac sources, intracerebral event, toxicologic, neurologic, as well as other pathologies. ER treatment provided: See below Diagnostics interpreted by me: ECG: EKG was obtained in the emergency department. My interpretation is sinus rhythm at 85 bpm. There was no ectopy. LVH was suggested by voltage criteria with diffuse ST and T wave abnormalities noted. This was compared to a tracing from October 15, 2022. No specific changes were noted. Cardiac Monitoring: An order was placed for continuous cardiac monitoring. The monitor shows a rate of 88 bpm with sinus rhythm. Laboratory studies: As stated above and show below. Imaging studies: See below. Radiographic imaging was reviewed by myself Consultation(s): Dr. Alejandro was notified about the patient. Past Med/Surg History Problem List (Updated 12/23/24 @ 21:47 by Pravin Ron DO) AAA (abdominal aortic aneurysm) (Acute) Hypokalemia (Acute) Abnormal EKG (Acute) Anxiety (Acute) Non-ST elevation IA (NSTEMI) (Acute) Abdominal bruit Hematoma Moderate aortic stenosis Lower extremity edema Postmenopausal Prediabetes Constipation GERD (gastroesophageal reflux disease) Encounter for interrogation of cardiac recorder Weight loss Implantable loop recorder present Tremor Headache Medication management History of colon polyps Family history of colon cancer History of TIA (transient ischemic attack) Anemia Complex laceration of scalp (Acute) Collapse (Acute) Closed head injury (Acute) Near syncope (Acute) Scalp laceration Fall Carotid stenosis, left Fronto-temporal dementia Hypoxia (Acute) COPD (chronic obstructive pulmonary disease) Myelopathy Executive function deficit Ataxia Anemia Lumbosacral radiculopathy Peripheral neuropathy Carotid stenosis Neurologic gait disorder Heel pain Balance disorder Peroneal tendinitis, left leg Bright red blood per rectum Melena Encounter for pre-operative examination Dizziness Cerebral atrophy Basilar artery stenosis TIA (transient ischemic attack) (Acute) Pain of left calf Acromioclavicular joint arthritis Patellar bursitis of left knee SNHL (sensorineural hearing loss) Otalgia, right ear Hypothyroidism (Acute) Chronic reflux esophagitis (Acute) Hypertension (Acute) Joint pain in the shoulder/clavicle region (Acute) Reflex incontinence (Acute) Toxic multinodular goiter (Acute) 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 Sotomayor and Dr. 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 Sotomayor and Dr. Hayden monitoring Pulmonary embolism hx of 2019 > related to an injury > remains on Eliquis Medical History Postmenopausal HRT (hormone replacement therapy) DVT (deep venous thrombosis) left leg > hx of 2019 > related to an injury > remains on Eliquis Transient ischemic attack (TIA) 2020--per pt reason for eliquis--follows with PCP WILFRED (vaginal intraepithelial neoplasia) remote, 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 Poor historian Laryngopharyngeal reflux Cardiac murmur follows with Dr. Henry Former smoker Hiatal hernia Internal hemorrhoids Tubular adenoma of colon Osteoarthritis Hypothyroidism Hearing deficit L EAR Chronic obstructive pulmonary disease rare res inh use per pt Lung abscess (12/17/13) pt unaware Surgical History History of loop recorder has at present > seeing cardio this week for check up (07/02/23) S/P excision of lipoma (08/08/19) Bilateral Arm Lipomas Excision (x7)(Bilateral) Dr. Asencio 08-08-19 History of esophagogastroduodenoscopy (EGD) w/ dilation History of oral surgery History of total abdominal hysterectomy and bilateral salpingo-oophorectomy History of tubal ligation H/O removal of cyst R ARM History of breast biopsy R BREAST-BENIGN History of dilatation and curettage History of arthroscopy left knee History of colonoscopy last 09/09/20 @ [facility] History of cholecystectomy History of tooth extraction History of tonsillectomy History of thyroidectomy, subtotal L SIDE History of eye surgery Left History of cataract surgery RT/LT Family History Grandmother Family history of diabetes mellitus MATERNAL Mother Family hx of colon cancer Colorectal cancer Father Coronary heart disease Daughter Slow to wake up after anesthesia Denies family history of Ovarian cancer Prostate cancer Myocardial infarction Breast cancer Social History Smoking Status: Never smoker Tobacco Type: Cigarettes Age Started Using Tobacco: 16; Age Quit Using Tobacco: 52; packs per day: 1; Second Hand Exposure: No; Do You Dip or Chew Tobacco: No; Hx Alcohol Use: No Hx Substance Use: No Preferred Language: Israeli Communication Ability: Effective Independent Crop Consultant Required: No Beliefs That Will Affect Care: Pentecostal Pentecostal Beliefs: BAPTISM marital status: Current Living Situation: Alone current occupational status: retired Feels Safe at Home: Yes Dental Care, Regularly: Yes Physical Activity Frequency: Does not Exercise Seatbelt Use: always Sunscreen Use: No Assistive Devices: Glasses Allergies Allergies Allergy/AdvReac Type Severity Reaction Status Date / Time adhesive tape AdvReac Mild Rash Verified 11/06/24 10:28 amoxicillin AdvReac Mild YEAST Verified 11/06/24 10:28 INFECTIONS levofloxacin AdvReac Mild NERVOUS Verified 11/06/24 10:28 Home Meds Home Medications Medication Instructions Recorded Confirmed Lactobacil.acidophilus-Bifido.animalis 1 cap PO QAM ##0 11/08/16 11/06/24 5 billion cell sprinkle capsule (Probiotic) cchofua-yjsifjpionzqs-xadpyphp 250 1 tab PO Q6H PRN Pain 07/02/23 11/06/24 mg-250 mg-65 mg tablet (Excedrin Extra Strength) multivitamin s-aklcsjlc-icbes 1 tab PO DAILY 07/02/23 11/06/24 tablet biotin 5,000 mcg chewable tablet mcg PO 10/15/24 11/06/24 lactobacillus combination no.4 3 3,000 mmu cells PO DAILY 10/15/24 11/06/24 billion cell capsule (Probiotic) alprazolam 1 mg tablet 1 mg PO DAILY PRN anxiety 12/18/24 brexpiprazole 1 mg tablet 1 mg PO DAILY 12/18/24 bupropion HCl 300 mg 24 hr tablet, 300 mg PO QAM 12/18/24 extended release topiramate 50 mg capsule,extended 50 mg PO DAILY 12/18/24 release 24 hr Previous Rx's Medication Instructions Recorded fluticasone propionate 50 2 spray SANTY DAILY PRN Nasal 07/12/23 mcg/actuation nasal Congestion #16 grams spray,suspension (Flonase Allergy Relief) venlafaxine 75 mg capsule,extended 75 mg PO HS #90 caps 01/04/24 release 24 hr midodrine 2.5 mg tablet 2.5 mg PO BID #180 tabs 01/29/24 apixaban 5 mg tablet (Eliquis) 5 mg PO BID #180 tabs 01/30/24 atorvastatin 80 mg tablet 80 mg PO QAM #90 tabs 01/30/24 venlafaxine 150 mg 150 mg PO QAM #90 caps 04/03/24 capsule,extended release 24 hr levothyroxine 50 mcg tablet 50 mcg PO QAM #90 tabs 08/20/24 (Synthroid) famotidine 40 mg tablet 40 mg PO BID acid reflux #180 tabs 09/10/24 albuterol sulfate 90 mcg/actuation 1 - 2 puff inhalation Q4H PRN SOB 09/30/24 aerosol inhaler #3 ea Results & Data (ED) Vital Signs Vital Signs - 24 hr 12/23/24 18:23 12/23/24 18:38 12/23/24 18:46 Temperature 36.6 C Temperature Source Temporal Artery Scan Pulse Rate 97 H 83 Pulse Rate [Apical] Pulse Rate from SpO2 Sensor Pulse Rhythm [Apical] Pulse Strength [Apical] Respiratory Rate 20 Respiratory Effort / Characteristics Non-Labored Spontaneous Respiratory Depth Normal Respiratory Pattern Blood Pressure 100/58 L Blood Pressure [Right Arm] Blood Pressure Mean 72 Blood Pressure Mean [Right Arm] Blood Pressure Position [Right Arm] Pulse Oximetry 100 97 Oxygen Delivery Method Room Air Room Air Sepsis Recent Fever Within 48 Hours No Sepsis New/Unexplained Change in Mental Status No Sepsis Action Taken by Nursing No Action Required 12/23/24 18:46 12/23/24 18:46 12/23/24 18:46 Temperature Temperature Source Pulse Rate Pulse Rate [Apical] 82 82 Pulse Rate from SpO2 Sensor Pulse Rhythm [Apical] Regular Pulse Strength [Apical] Normal Respiratory Rate 20 20 Respiratory Effort / Characteristics Non-Labored Spontaneous Non-Labored Spontaneous Respiratory Depth Normal Normal Respiratory Pattern Regular Regular Blood Pressure Blood Pressure [Right Arm] 153/69 H 152/69 H Blood Pressure Mean Blood Pressure Mean [Right Arm] 97 96 Blood Pressure Position [Right Arm] Lying Lying Pulse Oximetry 96 99 98 Oxygen Delivery Method Room Air Room Air Room Air Sepsis Recent Fever Within 48 Hours Sepsis New/Unexplained Change in Mental Status Sepsis Action Taken by Nursing 12/23/24 19:01 12/23/24 19:30 12/23/24 20:00 Temperature Temperature Source Pulse Rate 84 Pulse Rate [Apical] 82 94 H Pulse Rate from SpO2 Sensor Pulse Rhythm [Apical] Regular Regular Pulse Strength [Apical] Normal Normal Respiratory Rate 26 H 22 20 Respiratory Effort / Characteristics Non-Labored Spontaneous Non-Labored Spontaneous Respiratory Depth Normal Normal Respiratory Pattern Regular Blood Pressure 141/63 H Blood Pressure [Right Arm] 124/76 159/101 H Blood Pressure Mean 83 Blood Pressure Mean [Right Arm] 92 120 Blood Pressure Position [Right Arm] Lying Lying Pulse Oximetry 96 100 100 Oxygen Delivery Method Room Air Room Air Sepsis Recent Fever Within 48 Hours Sepsis New/Unexplained Change in Mental Status Sepsis Action Taken by Nursing 12/23/24 20:01 12/23/24 21:00 12/23/24 21:09 Temperature Temperature Source Pulse Rate 80 88 Pulse Rate [Apical] 88 Pulse Rate from SpO2 Sensor 90 Pulse Rhythm [Apical] Regular Pulse Strength [Apical] Normal Respiratory Rate 15 16 16 Respiratory Effort / Characteristics Non-Labored Spontaneous Respiratory Depth Normal Respiratory Pattern Regular Blood Pressure 159/101 H 154/93 H Blood Pressure [Right Arm] 154/93 H Blood Pressure Mean 117 113 Blood Pressure Mean [Right Arm] 113 Blood Pressure Position [Right Arm] Lying Pulse Oximetry 98 98 100 Oxygen Delivery Method Room Air Sepsis Recent Fever Within 48 Hours Sepsis New/Unexplained Change in Mental Status Sepsis Action Taken by Custodial Medications Current Medication List: was personally reviewed by me Laboratory Data Attestation: I reviewed the patient's lab results. 12/23/24 18:53 12/23/24 18:53 Lab Results 12/23/24 Range/Units 18:53 WBC 13.36 H (4.8-10.8) K/ul RBC 5.55 H (4.20-5.40) M/uL Hgb 13.7 (12.0-16.0) g/dl Hct 43.1 (37.0-47.0) % MCV 77.7 L (80.0-100.0) fL MCH 24.7 L (25.0-34.0) pg MCHC 31.8 L (32.0-36.0) g/dL RDW Std Deviation 49.9 H (36.4-46.3) fL RDW Coeff of Azam 18.9 H (11.5-14.5) % Plt Count 343 (130-400) K/uL MPV 9.7 (9.4-12.4) fL Immature Gran % (Auto) 0.3 % Neut % (Auto) 64.2 % Lymph % (Auto) 25.7 % Brooks % (Auto) 9.2 % Eos % (Auto) 0.3 % Baso % (Auto) 0.3 % Neut # (Auto) 8.58 H (1.40-6.50) K/uL Lymph # (Auto) 3.43 H (1.20-3.40) K/uL Brooks # (Auto) 1.23 H (0.11-0.59) K/uL Eos # (Auto) 0.04 (0.00-0.50) K/uL Baso # (Auto) 0.04 (0.00-0.20) K/uL Immature Gran # (Auto) 0.04 (0.01-0.20) K/uL PT 10.9 (9.0-12.0) Seconds INR 1.0 (0.9-1.1) APTT 25 (21-31) Seconds PTT Ratio 0.9 Sodium 140 (136-145) mmol/L Potassium 3.1 L (3.5-5.1) mmol/L Chloride 107 (98-107) mmol/L Carbon Dioxide 24 (21-32) mmol/L Anion Gap 9 (3-11) BUN 38 H (6-23) mg/dl Creatinine 1.12 (0.6-1.2) mg/dl Est Cr Clr Drug Dosing Not Reportable eGFR 50.65 BUN/Creatinine Ratio 33.9 H (10-20) Glucose 132 H (70-99(Fasting)) mg/dl Calcium 10.1 (8.6-10.3) mg/dl Magnesium 2.0 (1.7-2.4) mg/dl Total Bilirubin 0.6 (0.2-1.0) mg/dl AST 43 H (13-39) U/L ALT 23 (7-52) U/L Alkaline Phosphatase 112 H (34-104) U/L Total Creatine Kinase 330 H (26-192) U/L Troponin I High Sens 97.3 H* (0-14) pg/ml Total Protein 7.1 (6.0-8.3) gm/dl Albumin 4.1 (3.4-5.0) gm/dl Globulin 3.0 (2.5-4.0) gm/dl Albumin/Globulin Ratio 1.4 (0.9-2) TSH 4.616 H (0.300-4.500) uIu/ml Free T4 0.87 (0.61-1.60) ng/dl Administered Medications Discontinued Medications Alprazolam (Alprazolam 0.5 Mg Tablet) 0.5 mg PO NOW STA Stop: 12/23/24 18:36 Last Admin: 12/23/24 18:59 Dose: 0.5 mg Documented By: DARRYL Aspirin (Aspirin Chew 324 Mg) 324 mg PO NOW STA Stop: 12/23/24 20:03 Last Admin: 12/23/24 20:08 Dose: 324 mg Documented By: DARRYL Sodium Chloride (Nss) 1,000 mls @ 999 mls/hr IV .Q1H1M LEXX Stop: 12/23/24 19:45 Last Infusion: 12/23/24 20:37 Dose: Infused Documented By: Admin: 12/23/24 18:59 Dose: 999 mls/hr Documented By: DARRYL Ioversol (Optiray 320 125ml) 118 ml IV ONCE ONE Stop: 12/23/24 20:26 Last Admin: 12/23/24 20:25 Dose: 118 ml Documented By: JOYA Ioversol (Optiray 320 100ml) 90 ml IV ONCE ONE Stop: 12/23/24 20:54 Last Admin: 12/23/24 20:53 Dose: 90 ml Documented By: ANGELIKA Potassium Chloride (Potassium Chloride 10 Meq Tabcr) 20 meq PO NOW STA Stop: 12/23/24 21:44 Last Admin: 12/23/24 21:47 Dose: 20 meq Documented By: DARRYL Imaging Data Attestation: I personally reviewed and interpreted this imaging study as follows: My Impression: 1 view chest x-ray was obtained in the emergency department. My interpretation is no free air or definite infiltrate, final report below. Radiologist's Impression: Cervical Spine CT 12/23/24 18:35 EXAM: CT cervical spine wo con CLINICAL HISTORY: Fall. TECHNIQUE: CT scan of the cervical spine was performed without the administration of intravenous contrast. Contiguous axial images were obtained from the skull base to the upper thoracic spine. Coronal and sagittal reformatted images were also reviewed. One of the following dose reduction techniques was utilized for this exam. Automated exposure control, adjustment of the mA and/or kV according to patient size, and use of iterative reconstruction. COMPARISON: CT cervical spine on 03/26/2022 FINDINGS: Vertebrae: No evidence of acute fracture or dislocation. Loss of cervical lordosis with mild reversal of curvature. Diffuse osteopenic changes noted. Grade I minimal retrolisthesis of C5 over C6, degenerative in nature. Multilevel anterior and posterior osteophytes with uncovertebral hypertrophy noted. Maintained vertebral heights. Intervertebral Discs: Moderate to severe reduction of C4-C5 to C6-C7 intervertebral disc spaces. Multilevel posterior disc osteophyte complexes resulting in neural foraminal narrowing accentuated by facetal arthropathy. Facet Joints: Moderate to severe degenerative changes. Prevertebral Soft Tissues: The prevertebral soft tissues are normal in thickness without evidence of mass or abnormal fluid collection. Additional Findings: Visualized sections of upper thorax show partially visualized 10 mm nodular subpleural lesion in medial aspect of right apex with a small calcific focus in it. Few small 3-4 mm nodules in left apex. These sections were not covered on prior CT study. Focal fibrocystic change in lateral aspect of right apex. Mild bilateral apical fibrosis. Diffuse centrilobular emphysematous changes in visualized upper lobes. Left-sided nasal septal deviation with spur. IMPRESSION: 1. No evidence of acute fracture, dislocation in the cervical spine. 2. Moderate cervical spondylodegenerative changes as described above, mild interval progression since prior CT study dated 03/26/2022. 3. Visualized sections of upper thorax show partially visualized 10 mm nodular subpleural lesion in medial aspect of right apex with a small calcific focus in it. Few small 3-4 mm nodules in left apex. Warrant CT chest for further assessment. Electronically signed by Joss Pedersen 12-23-2024 9:33 PM Chest X-Ray 12/23/24 18:35 EXAM: XR chest 1V portable CLINICAL HISTORY: Weakness. TECHNIQUE: X-ray images of the chest were obtained in AP portable projection COMPARISON: 05/12/2024. FINDINGS: Pulmonary Parenchyma: Unchanged diffuse interstitial thickening with thin fibrotic/atelectatic bands at lower zones. No evidence of consolidation, collapse, or focal opacities. No pulmonary nodules identified. No evidence of pleural effusion or pleural thickening. Heart and Mediastinum: Heart size and shape are normal. No mediastinal widening or masses. No hilar or mediastinal lymphadenopathy. Aortic arch calcified atheromatous plaque (unchanged). Loop recorder is noted Bony Thorax: Bony thorax appears intact without fractures or deformities. Soft Tissues: Soft tissues overlying the chest wall are unremarkable. IMPRESSION: 1. Diffuse interstitial thickening with thin fibrotic/atelectatic bands at lower zones likely representing post inflammatory sequel. 2. No interval changes as compared to the previous study. Electronically signed by Joss Pedersen 12-23-2024 8:[address] 12/23/24 18:35 EXAM: CT head/brain wo con CLINICAL HISTORY: fall TECHNIQUE: Axial noncontrast CT scan of the brain was performed from the skull base to the high parietal region .One of the following dose reduction techniques were utilized for this exam: Automated exposure control, adjustment of the mA and/or kV according to patient size, use of iterative reconstruction. COMPARISON: 10/15/2022 FINDINGS: There are ill-defined iso-to hypodense areas noted in the subcortical and periventricular white matter bilaterally, suggestive of microvascular ischemic changes. The ventricular system, cortical sulci and basal cisterns are prominent consistent with senile changes. Prominent extra-axial spaces in bilateral frontal regions, likely representing chronic subdural hygromas. The visualized brain parenchyma shows normal appearance. No intracerebral or extra axial hematoma. Normal CT appearance of the posterior fossa structures namely the cerebellar hemispheres, brainstem and cerebellar peduncles. The cerebello-pontine angles are clear. The osseous structures in the skull base are unremarkable. No definite calvarium fractures. The scanned paranasal sinuses are clear. Bilateral mastoid air cells appear unremarkable. IMPRESSION: 1. No acute intracranial traumatic injury detected. 2. Chronic microvascular ischemic changes and senile cortical atrophy, grossly unchanged. Electronically signed by Joss Pedersen 12-23-2024 9:24 PM Pelvis X-Ray 12/23/24 18:35 EXAM: XR pelvis 1-2V routine CLINICAL HISTORY: fall TECHNIQUE: X-ray images of the pelvis were obtained in anteroposterior (AP) projection. COMPARISON: No prior studies available for comparison. FINDINGS: Bone Structure: Pelvic bones, including the iliac wings, ischium, pubis, and sacrum, are normal and intact. No evidence of fractures, dislocations, or significant osseous lesions. Moderate degree dextroscoliosis is noted in the visualized lumbar spine. Hip Joints: Hip joints are normal with preserved joint spaces. No evidence of hip dislocation, subluxation, or significant degenerative changes. Acetabulum: Acetabular structures appear normal and intact. No signs of acetabular fracture or dysplasia. Symphysis Pubis: Symphysis pubis is normal and intact. No evidence of separation or widening. Sacroiliac Joints: Sacroiliac joints appear normal and unremarkable. No evidence of sacroiliitis or significant degenerative changes. Soft Tissues: Visualized soft tissues are normal and unremarkable. No soft tissue swelling, calcifications, or masses. IMPRESSION: Normal X-ray of the pelvis. No evidence of acute fractures, dislocations, or significant degenerative changes. Disclaimer: A subtle bone abnormality or fracture may not be readily apparent on X-rays, thus clinical correlation and further imaging including follow-up CT, MRI, or follow-up X-rays are advised as needed. Electronically signed by Slava Joss 12-23-2024 8:39 PM Chest CTA 12/23/24 20:02 Exam(s): CTA CHEST IV Amt: 118 cc opti 320 EXAM: CT Angiography Chest With Intravenous Contrast CLINICAL HISTORY: Reason for exam: PE. TECHNIQUE: Axial computed tomographic angiography images of the chest with intravenous contrast. CTDI is 11.87 mGy and DLP is 576.44 mGy-cm. Automated exposure control was utilized for the study. A dose lowering technique was utilized adhering to the principles of ALARA. MIP reconstructed images were created and reviewed. COMPARISON: No relevant prior studies available. FINDINGS: Pulmonary arteries: Unremarkable. No pulmonary embolism. Aorta: There is infrarenal abdominal aortic aneurysm, measuring 4.8 cm in diameter and incompletely included in the [id number]. Lungs: There is 2.5 cm diameter focus of groundglass density seen posteriorly in the left lower lobe. There are some consolidative and groundglass densities seen in the dependent right lower lobe. There is right middle lobe nodule measuring 6 mm in diameter on image 62, series 2. There is 1.9 cm ill-defined groundglass density seen in the right upper lobe on image 77, series 2. Mild centrilobular emphysema. 3.5 mm right upper lobe nodule seen on image 95, series 2. 1.1 cm diameter right apical nodule seen on image 110, series 2. There is irregular 11 mm diameter nodular density seen in the right lung apex on image 109, series 2. Stable subpleural nodularity seen anterolaterally in the left upper lobe on image 100, series 3. Pleural space: Unremarkable. No significant effusion. No pneumothorax. Heart: Unremarkable. No cardiomegaly. No significant pericardial effusion. No evidence of RV dysfunction. Mediastinum: Small hiatus hernia. Bones/joints: No acute fracture. No dislocation. Soft tissues: Unremarkable. Lymph nodes: Unremarkable. No enlarged lymph nodes. IMPRESSION: No acute pulmonary embolism. 1. Multifocal nodular densities some of which appear to be of inflammatory etiology. Follow-up CT suggested in 4 weeks time for further assessment 2. Consolidative and groundglass densities in the right lower lobe which are stable since 06/10/24 CT 1.1 cm diameter nodular density located medially in the right lung apex is stable since prior study from 06/10/24. 3. Infrarenal abdominal aortic aneurysm. Electronically signed by: Johann Traore MD 12/23/24 21:17 PM Abdomen/Pelvis CT 12/23/24 20:37 Exam(s): CT ABDOMEN + PELVIS With Contrast IV Amt: 90 cc opti 320 EXAM: CT Abdomen and Pelvis With Intravenous Contrast CLINICAL HISTORY: Reason for exam: aaa. TECHNIQUE: Axial computed tomography images of the abdomen and pelvis with intravenous contrast. CTDI is 22.69 mGy and DLP is 993.77 mGy-cm. Automated exposure control was utilized for the study. A dose lowering technique was utilized adhering to the principles of ALARA. CONTRAST: Patient received 90 cc opti 320 of IV contrast COMPARISON: No relevant prior studies available. FINDINGS: ABDOMEN: Liver: Unremarkable. No mass. Gallbladder and bile ducts: Cholecystectomy. No ductal dilation. Pancreas: Unremarkable. No mass. No ductal dilation. Spleen: Unremarkable. No splenomegaly. Adrenals: Unremarkable. No mass. Kidneys and ureters: Unremarkable. No solid mass. No hydronephrosis. Stomach and bowel: Unremarkable. No obstruction. No mucosal thickening. PELVIS: Appendix: No findings to suggest acute appendicitis. Bladder: Unremarkable. No mass. Reproductive: Unremarkable as visualized. ABDOMEN and PELVIS: Intraperitoneal space: Unremarkable. No free air. No significant fluid collection. Bones/joints: No acute fracture. No dislocation. Moderately advanced multilevel degenerative disc disease changes seen in the lumbar spine. There is mild levoscoliosis. Vasculature: Infrarenal abdominal aortic aneurysm measuring 4.9 cm in diameter. Lymph nodes: Unremarkable. No enlarged lymph nodes. IMPRESSION: Infrarenal abdominal aortic aneurysm. No dissection. Electronically signed by: Johann Traore MD 12/23/24 21:37 PM Discharge Plan Visit Data Chief Complaint: Confusion Stated Complaint: CONFUSION, FALL, WEAKNESS ED Provider: Pravin Ron Discharge Problem: Non-ST elevation IA (NSTEMI), Anxiety, Abnormal EKG, Hypokalemia, AAA (abdominal aortic aneurysm) Patient Disposition: Being Evaluated by Hospitalist Condition: Fair Forms Stand Alone Forms: My [facility] Prescriptions Prescriptions: No Action Probiotic 5 billion cell Capsule, Sprinkle 1 cap PO QAM Qty: 0 venlafaxine 75 mg capsule,extended release 24hr 75 mg PO HS Qty: 90 3RF midodrine 2.5 mg tablet 2.5 mg PO BID Qty: 180 3RF levothyroxine [Synthroid] 50 mcg tablet 50 mcg PO QAM Qty: 90 3RF albuterol sulfate 90 mcg/actuation HFA aerosol inhaler 1 - 2 puff INH Q4H PRN (Reason: SOB) Qty: 3 1RF Rx Instructions: Inhale 1 to 2 puffs every 4-6 hours as needed. brexpiprazole 1 mg tablet 1 mg PO DAILY bupropion HCl 300 mg tablet extended release 24 hr 300 mg PO QAM topiramate 50 mg capsule,extended release 24hr 50 mg PO DAILY alprazolam 1 mg tablet 1 mg PO DAILY PRN (Reason: anxiety) atorvastatin 80 mg tablet 80 mg PO QAM Qty: 90 3RF Eliquis 5 mg tablet 5 mg PO BID Qty: 180 3RF fluticasone propionate [Flonase Allergy Relief] 50 mcg/actuation spray,suspension 2 spray SANTY DAILY PRN (Reason: Nasal Congestion) Qty: 16 0RF biotin 5,000 mcg tablet,chewable PO Probiotic 3 billion cell capsule 3,000 mmu cells PO DAILY Rx Instructions: administer with a meal venlafaxine 150 mg capsule,extended release 24hr 150 mg PO QAM Qty: 90 3RF famotidine 40 mg tablet 40 mg PO BID Qty: 180 3RF Excedrin Extra Strength 250-250-65 mg Tablet 1 tab PO Q6H PRN (Reason: Pain) multivitamin [id number] Tablet 1 tab PO DAILY Referrals Referrals: Pro,Pravin Isaac MD [Primary Care Provider] -
[2024-12-23] MEDS: SODIUM CHLORIDE 0.9% 1,000 ML IV SCH (18:59)
[2024-12-23 19:05] LABS: Hematocrit (blood only) 43.1 % (37.0-47.0); Hemoglobin 13.7 g/dl (12.0-16.0); Immature Granulocytes # (auto) 0.04 K/uL (0.01-0.20); Immature Granulocytes % (auto) 0.3 %; Mean Corpuscular Hemoglobin 24.7 pg (25.0-34.0); Mean Corpuscular Volume 77.7 fL (80.0-100.0); Platelet Count 343 K/uL (130-400); RDW Standard Deviation 49.9 fL (36.4-46.3); Red Blood Count 5.55 M/uL (4.20-5.40); White Blood Count 13.36 K/ul (4.8-10.8)
[2024-12-23 19:28] LABS: Alanine Aminotransferase 23 U/L (7-52); Albumin Globulin Ratio 1.4 (0.9-2); Alkaline Phosphatase 112 U/L (34-104); Anion Gap 9 (3-11); Bilirubin,Total 0.6 mg/dl (0.2-1.0); Blood Urea Nitrogen 38 mg/dl (6-23); Calcium 10.1 mg/dl (8.6-10.3); Carbon Dioxide 24 mmol/L (21-32); Chloride 107 mmol/L (98-107); Creatine Kinase 330 U/L (26-192); Globulin 3.0 gm/dl (2.5-4.0); Glucose 132 mg/dl (70-99(Fasting)); Magnesium 2.0 mg/dl (1.7-2.4); Potassium 3.1 mmol/L (3.5-5.1); Sodium 140 mmol/L (136-145); Total Protein 7.1 gm/dl (6.0-8.3)
[2024-12-23 19:44] LABS: Thyroid Stimulating Hormone 4.616 uIu/ml (0.300-4.500)
[2024-12-23 19:53] LABS: INR 1.0 (0.9-1.1); Partial Thromboplastin Time 25 Seconds (21-31); Prothrombin Time 10.9 Seconds (9.0-12.0)
[2024-12-23] MEDS: ASPIRIN CHEW 324 MG PO STA (20:08)
--- NOTE | 2024-12-23 20:19 | XRay Report ---
EXAM: XR chest 1V portable CLINICAL HISTORY: Weakness. TECHNIQUE: X-ray images of the chest were obtained in AP portable projection COMPARISON: 05/12/2024. FINDINGS: Pulmonary Parenchyma: Unchanged diffuse interstitial thickening with thin fibrotic/atelectatic bands at lower zones. No evidence of consolidation, collapse, or focal opacities. No pulmonary nodules identified. No evidence of pleural effusion or pleural thickening. Heart and Mediastinum: Heart size and shape are normal. No mediastinal widening or masses. No hilar or mediastinal lymphadenopathy. Aortic arch calcified atheromatous plaque (unchanged). Loop recorder is noted Bony Thorax: Bony thorax appears intact without fractures or deformities. Soft Tissues: Soft tissues overlying the chest wall are unremarkable. IMPRESSION: 1. Diffuse interstitial thickening with thin fibrotic/atelectatic bands at lower zones likely representing post inflammatory sequel. 2. No interval changes as compared to the previous study. Electronically signed by Joss Pedersen 12-23-2024 8:19 PM
[2024-12-23] MEDS: OPTIRAY 320 125ml IV ONE (20:25)
--- NOTE | 2024-12-23 20:40 | XRay Report ---
EXAM: XR pelvis 1-2V routine CLINICAL HISTORY: fall TECHNIQUE: X-ray images of the pelvis were obtained in anteroposterior (AP) projection. COMPARISON: No prior studies available for comparison. FINDINGS: Bone Structure: Pelvic bones, including the iliac wings, ischium, pubis, and sacrum, are normal and intact. No evidence of fractures, dislocations, or significant osseous lesions. Moderate degree dextroscoliosis is noted in the visualized lumbar spine. Hip Joints: Hip joints are normal with preserved joint spaces. No evidence of hip dislocation, subluxation, or significant degenerative changes. Acetabulum: Acetabular structures appear normal and intact. No signs of acetabular fracture or dysplasia. Symphysis Pubis: Symphysis pubis is normal and intact. No evidence of separation or widening. Sacroiliac Joints: Sacroiliac joints appear normal and unremarkable. No evidence of sacroiliitis or significant degenerative changes. Soft Tissues: Visualized soft tissues are normal and unremarkable. No soft tissue swelling, calcifications, or masses. IMPRESSION: Normal X-ray of the pelvis. No evidence of acute fractures, dislocations, or significant degenerative changes. Disclaimer: A subtle bone abnormality or fracture may not be readily apparent on X-rays, thus clinical correlation and further imaging including follow-up CT, MRI, or follow-up X-rays are advised as needed. Electronically signed by Joss Pedersen 12-23-2024 8:39 PM
[2024-12-23] MEDS: OPTIRAY 320 100ml IV ONE (20:53)
--- NOTE | 2024-12-23 21:18 | CT Scan Report ---
Exam(s): CTA CHEST IV Amt: 118 cc opti 320 EXAM: CT Angiography Chest With Intravenous Contrast CLINICAL HISTORY: Reason for exam: PE. TECHNIQUE: Axial computed tomographic angiography images of the chest with intravenous contrast. CTDI is 11.87 mGy and DLP is 576.44 mGy-cm. Automated exposure control was utilized for the study. A dose lowering technique was utilized adhering to the principles of ALARA. MIP reconstructed images were created and reviewed. COMPARISON: No relevant prior studies available. FINDINGS: Pulmonary arteries: Unremarkable. No pulmonary embolism. Aorta: There is infrarenal abdominal aortic aneurysm, measuring 4.8 cm in diameter and incompletely included in the [id number]. Lungs: There is 2.5 cm diameter focus of groundglass density seen posteriorly in the left lower lobe. There are some consolidative and groundglass densities seen in the dependent right lower lobe. There is right middle lobe nodule measuring 6 mm in diameter on image 62, series 2. There is 1.9 cm ill-defined groundglass density seen in the right upper lobe on image 77, series 2. Mild centrilobular emphysema. 3.5 mm right upper lobe nodule seen on image 95, series 2. 1.1 cm diameter right apical nodule seen on image 110, series 2. There is irregular 11 mm diameter nodular density seen in the right lung apex on image 109, series 2. Stable subpleural nodularity seen anterolaterally in the left upper lobe on image 100, series 3. Pleural space: Unremarkable. No significant effusion. No pneumothorax. Heart: Unremarkable. No cardiomegaly. No significant pericardial effusion. No evidence of RV dysfunction. Mediastinum: Small hiatus hernia. Bones/joints: No acute fracture. No dislocation. Soft tissues: Unremarkable. Lymph nodes: Unremarkable. No enlarged lymph nodes. IMPRESSION: No acute pulmonary embolism. 1. Multifocal nodular densities some of which appear to be of inflammatory etiology. Follow-up CT suggested in 4 weeks time for further assessment 2. Consolidative and groundglass densities in the right lower lobe which are stable since 06/10/24 CT 1.1 cm diameter nodular density located medially in the right lung apex is stable since prior study from 06/10/24. 3. Infrarenal abdominal aortic aneurysm. Electronically signed by: Johann Traore MD 12/23/24 21:17 PM
--- NOTE | 2024-12-23 21:25 | CT Scan Report ---
EXAM: CT head/brain wo con CLINICAL HISTORY: fall TECHNIQUE: Axial noncontrast CT scan of the brain was performed from the skull base to the high parietal region .One of the following dose reduction techniques were utilized for this exam: Automated exposure control, adjustment of the mA and/or kV according to patient size, use of iterative reconstruction. COMPARISON: 10/15/2022 FINDINGS: There are ill-defined iso-to hypodense areas noted in the subcortical and periventricular white matter bilaterally, suggestive of microvascular ischemic changes. The ventricular system, cortical sulci and basal cisterns are prominent consistent with senile changes. Prominent extra-axial spaces in bilateral frontal regions, likely representing chronic subdural hygromas. The visualized brain parenchyma shows normal appearance. No intracerebral or extra axial hematoma. Normal CT appearance of the posterior fossa structures namely the cerebellar hemispheres, brainstem and cerebellar peduncles. The cerebello-pontine angles are clear. The osseous structures in the skull base are unremarkable. No definite calvarium fractures. The scanned paranasal sinuses are clear. Bilateral mastoid air cells appear unremarkable. IMPRESSION: 1. No acute intracranial traumatic injury detected. 2. Chronic microvascular ischemic changes and senile cortical atrophy, grossly unchanged. Electronically signed by Joss Pedersen 12-23-2024 9:24 PM
--- NOTE | 2024-12-23 21:34 | CT Scan Report ---
EXAM: CT cervical spine wo con CLINICAL HISTORY: Fall. TECHNIQUE: CT scan of the cervical spine was performed without the administration of intravenous contrast. Contiguous axial images were obtained from the skull base to the upper thoracic spine. Coronal and sagittal reformatted images were also reviewed. One of the following dose reduction techniques was utilized for this exam. Automated exposure control, adjustment of the mA and/or kV according to patient size, and use of iterative reconstruction. COMPARISON: CT cervical spine on 03/26/2022 FINDINGS: Vertebrae: No evidence of acute fracture or dislocation. Loss of cervical lordosis with mild reversal of curvature. Diffuse osteopenic changes noted. Grade I minimal retrolisthesis of C5 over C6, degenerative in nature. Multilevel anterior and posterior osteophytes with uncovertebral hypertrophy noted. Maintained vertebral heights. Intervertebral Discs: Moderate to severe reduction of C4-C5 to C6-C7 intervertebral disc spaces. Multilevel posterior disc osteophyte complexes resulting in neural foraminal narrowing accentuated by facetal arthropathy. Facet Joints: Moderate to severe degenerative changes. Prevertebral Soft Tissues: The prevertebral soft tissues are normal in thickness without evidence of mass or abnormal fluid collection. Additional Findings: Visualized sections of upper thorax show partially visualized 10 mm nodular subpleural lesion in medial aspect of right apex with a small calcific focus in it. Few small 3-4 mm nodules in left apex. These sections were not covered on prior CT study. Focal fibrocystic change in lateral aspect of right apex. Mild bilateral apical fibrosis. Diffuse centrilobular emphysematous changes in visualized upper lobes. Left-sided nasal septal deviation with spur. IMPRESSION: 1. No evidence of acute fracture, dislocation in the cervical spine. 2. Moderate cervical spondylodegenerative changes as described above, mild interval progression since prior CT study dated 03/26/2022. 3. Visualized sections of upper thorax show partially visualized 10 mm nodular subpleural lesion in medial aspect of right apex with a small calcific focus in it. Few small 3-4 mm nodules in left apex. Warrant CT chest for further assessment. Electronically signed by Joss Pedersen 12-23-2024 9:33 PM
--- NOTE | 2024-12-23 21:39 | CT Scan Report ---
Exam(s): CT ABDOMEN + PELVIS With Contrast IV Amt: 90 cc opti 320 EXAM: CT Abdomen and Pelvis With Intravenous Contrast CLINICAL HISTORY: Reason for exam: aaa. TECHNIQUE: Axial computed tomography images of the abdomen and pelvis with intravenous contrast. CTDI is 22.69 mGy and DLP is 993.77 mGy-cm. Automated exposure control was utilized for the study. A dose lowering technique was utilized adhering to the principles of ALARA. CONTRAST: Patient received 90 cc opti 320 of IV contrast COMPARISON: No relevant prior studies available. FINDINGS: ABDOMEN: Liver: Unremarkable. No mass. Gallbladder and bile ducts: Cholecystectomy. No ductal dilation. Pancreas: Unremarkable. No mass. No ductal dilation. Spleen: Unremarkable. No splenomegaly. Adrenals: Unremarkable. No mass. Kidneys and ureters: Unremarkable. No solid mass. No hydronephrosis. Stomach and bowel: Unremarkable. No obstruction. No mucosal thickening. PELVIS: Appendix: No findings to suggest acute appendicitis. Bladder: Unremarkable. No mass. Reproductive: Unremarkable as visualized. ABDOMEN and PELVIS: Intraperitoneal space: Unremarkable. No free air. No significant fluid collection. Bones/joints: No acute fracture. No dislocation. Moderately advanced multilevel degenerative disc disease changes seen in the lumbar spine. There is mild levoscoliosis. Vasculature: Infrarenal abdominal aortic aneurysm measuring 4.9 cm in diameter. Lymph nodes: Unremarkable. No enlarged lymph nodes. IMPRESSION: Infrarenal abdominal aortic aneurysm. No dissection. Electronically signed by: Johann Traore MD 12/23/24 21:37 PM
[2024-12-23] MEDS: POTASSIUM CHLORIDE 10 MEQ TABCR PO STA (21:47)
[2024-12-23] MEDS: NYSTATIN POWDER 15GM BTL EXT ONE (22:42)
--- NOTE | 2024-12-24 01:10 | History & Physical Report ---
Date of Service December 24, 2024 Assessment & Plan (1) Non-ST elevation [place] (NSTEMI): (2) Anxiety: (3) Hypokalemia: (4) ASHVIN (acute kidney injury): (5) Fall: Plan This is a 79 year old female with a PMH of PE on Eliquis, anxiety, COPD, hx of TIA - came to the ER due to feeling anxious; coming in with fall and elevated troponin Elevated Troponin - trops >90 x2 - EKG done; no obvious ST, T wave changes; LVH noted - trend trops; check TTE - monitor on tele - cont Eliquis - may benefit from cardiology input Fall - patient with a mechanical fall in the ED waiting room; missed her seat as she was trying to sit down and landed on her butt - imaging done and negative (including pelvis CT, head and c-spine CT) - PT/OT ordered ASHVIN Hypokalemia - 20meq of KCl given in the ED - gentle IV hydration ordered due to bump in creatinine Hx of PE - cont Eliquis Anxiety - cont with Benzos to prevent withdrawal symptoms Subclinical Hypothyroidism - cont synthroid - TSH mildly elevated, normal Free T4 History of Present Illness Primary Care Provider: Pravin Drew MD This is a 79 year old female with a PMH of PE on Eliquis, anxiety, COPD, hx of TIA - came to the ER due to feeling anxious; has been off of Xanax for a week and felt off mentally; states she's been taking this medication for the past 30 years or so. In the waiting room of the ER, she was trying to sit back in her seat and actually fell and landed on her buttocks. Imaging including Cervical spine CT, head CT, pelvis X-ray, abdominal/pelvis CT done and negative for acute injury. Labs were drawn and patient noted to have elevated troponin; >90. EKG done and shows LVH. Allergies Allergy/AdvReac Type Severity Reaction Status Date / Time adhesive tape Allergy Mild Rash Verified 12/23/24 22:38 levofloxacin AdvReac Intermediate NERVOUS Verified 12/23/24 22:38 amoxicillin AdvReac Mild YEAST Verified 12/23/24 22:38 INFECTIONS Home Medications Medication Instructions Recorded Confirmed Type Lactobacil.acidophilus-Bifido.animalis 1 cap PO QAM ##0 11/08/16 12/23/24 History 5 billion cell sprinkle capsule (Probiotic) bbkqwor-zbpgmbkhohwcg-mmncmhcy 250 1 tab PO Q6H PRN Pain 07/02/23 12/23/24 History mg-250 mg-65 mg tablet (Excedrin Extra Strength) fluticasone propionate 50 2 spray SANTY DAILY PRN Nasal 07/12/23 12/23/24 Rx mcg/actuation nasal Congestion #16 grams spray,suspension (Flonase Allergy Relief) venlafaxine 75 mg capsule,extended 75 mg PO HS #90 caps 01/04/24 12/23/24 Rx release 24 hr midodrine 2.5 mg tablet 2.5 mg PO BID #180 tabs 01/29/24 12/23/24 Rx apixaban 5 mg tablet (Eliquis) 5 mg PO BID #180 tabs 01/30/24 12/23/24 Rx atorvastatin 80 mg tablet 80 mg PO QAM #90 tabs 01/30/24 12/23/24 Rx venlafaxine 150 mg 150 mg PO QAM #90 caps 04/03/24 12/23/24 Rx capsule,extended release 24 hr levothyroxine 50 mcg tablet 50 mcg PO QAM #90 tabs 08/20/24 12/23/24 Rx (Synthroid) famotidine 40 mg tablet 40 mg PO BID acid reflux #180 tabs 09/10/24 12/23/24 Rx biotin 5,000 mcg chewable tablet 5,000 mcg PO DAILY 10/15/24 12/23/24 History lactobacillus combination no.4 3 3,000 mmu cells PO DAILY 10/15/24 12/23/24 History billion cell capsule (Probiotic) alprazolam 1 mg tablet 1 mg PO HS PRN anxiety 12/18/24 12/23/24 History brexpiprazole 1 mg tablet 1 mg PO DAILY 12/18/24 12/23/24 History bupropion HCl 300 mg 24 hr tablet, 300 mg PO QAM 12/18/24 12/23/24 History extended release topiramate 50 mg capsule,extended 50 mg PO DAILY 12/18/24 12/23/24 History release 24 hr albuterol sulfate 90 mcg/actuation 1 - 2 puff inhalation .Q4-6HR PRN 12/23/24 12/23/24 History aerosol inhaler SOB multivitamin with minerals 1 tab PO DAILY 12/23/24 12/23/24 History Past Med/Surg History Problem List (Updated 12/24/24 @ 01:27 by Erin Cisneros, DO) ASHVIN (acute kidney injury) AAA (abdominal aortic aneurysm) (Acute) Hypokalemia (Acute) Abnormal EKG (Acute) Anxiety (Acute) Non-ST elevation OH (NSTEMI) (Acute) Abdominal bruit Hematoma Moderate aortic stenosis Lower extremity edema Postmenopausal Prediabetes Constipation GERD (gastroesophageal reflux disease) Encounter for interrogation of cardiac recorder Weight loss Implantable loop recorder present Tremor Headache Medication management History of colon polyps Family history of colon cancer History of TIA (transient ischemic attack) Anemia Complex laceration of scalp (Acute) Collapse (Acute) Closed head injury (Acute) Near syncope (Acute) Scalp laceration Fall Carotid stenosis, left Fronto-temporal dementia Hypoxia (Acute) COPD (chronic obstructive pulmonary disease) Myelopathy Executive function deficit Ataxia Anemia Lumbosacral radiculopathy Peripheral neuropathy Carotid stenosis Neurologic gait disorder Heel pain Balance disorder Peroneal tendinitis, left leg Bright red blood per rectum Melena Encounter for pre-operative examination Dizziness Cerebral atrophy Basilar artery stenosis TIA (transient ischemic attack) (Acute) Pain of left calf Acromioclavicular joint arthritis Patellar bursitis of left knee SNHL (sensorineural hearing loss) Otalgia, right ear Hypothyroidism (Acute) Chronic reflux esophagitis (Acute) Hypertension (Acute) Joint pain in the shoulder/clavicle region (Acute) Reflex incontinence (Acute) Toxic multinodular goiter (Acute) 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 Sotomayor and Dr. 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 Sotomayor and Dr. Hayden monitoring Pulmonary embolism hx 2019 > related to an injury > remains on [employer] Medical History Postmenopausal HRT (hormone replacement therapy) DVT (deep venous thrombosis) left leg > hx of 2019 > related to an injury > remains on Eliquis Transient ischemic attack (TIA) 2020--per pt reason for eliquis--follows with PCP VAIN (vaginal intraepithelial neoplasia) remote, 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 Poor historian Laryngopharyngeal reflux Cardiac murmur follows with Dr. Henry Former smoker Hiatal hernia Internal hemorrhoids Tubular adenoma of colon Osteoarthritis Hypothyroidism Hearing deficit L EAR Chronic obstructive pulmonary disease rare res inh use per pt Lung abscess (12/17/13) pt unaware Surgical History History of loop recorder has at present > seeing cardio this week for check up (07/02/23) S/P excision of lipoma (08/08/19) Bilateral Arm Lipomas Excision (x7)(Bilateral) Dr. Asencio 08-08-19 History of esophagogastroduodenoscopy (EGD) w/ dilation History of oral surgery History of total abdominal hysterectomy and bilateral salpingo-oophorectomy History of tubal ligation H/O removal of cyst R ARM History of breast biopsy R BREAST-BENIGN History of dilatation and curettage History of arthroscopy left knee History of colonoscopy last 09/09/20 @ [facility] History of cholecystectomy History of tooth extraction History of tonsillectomy History of thyroidectomy, subtotal L SIDE History of eye surgery Left History of cataract surgery RT/LT Family History Grandmother Family history of diabetes mellitus MATERNAL Mother Family hx of colon cancer Colorectal cancer Father Coronary heart disease Daughter Slow to wake up after anesthesia Denies family history of Ovarian cancer Prostate cancer Myocardial infarction Breast cancer Social History Smoking Status: Never smoker Tobacco Type: Cigarettes Age Started Using Tobacco: 16; Age Quit Using Tobacco: 52; packs per day: 1; Second Hand Exposure: No; Do You Dip or Chew Tobacco: No; Hx Alcohol Use: No Hx Substance Use: No Preferred Language: Polish Communication Ability: Effective Management Consulting Required: No Beliefs That Will Affect Care: Evangelical Evangelical Beliefs: ISLAM marital status: Current Living Situation: Alone current occupational status: retired Feels Safe at Home: Yes Dental Care, Regularly: Yes Physical Activity Frequency: Does not Exercise Seatbelt Use: always Sunscreen Use: No Assistive Devices: Glasses Review of Systems Review of Systems: Constitutional: No Weight Change, No Fever, No Chills, No Night Sweats, No Fatigue, No Malaise ENT/Mouth: No Hearing Changes, No Ear Pain, No Nasal Congestion, No Sinus Pain, No Hoarseness, No sore throat, No Rhinorrhea, No Swallowing Difficulty Eyes: No Eye Pain, No Swelling, No Redness, No Foreign Body, No Discharge, No Vision Changes Cardiovascular: No Chest Pain, No SOB, No PND, No Dyspnea on Exertion, No Orthopnea, No Claudication, No Edema, No Palpitations Respiratory: No Cough, No Sputum, No Wheezing, No Smoke Exposure, No Dyspnea Gastrointestinal: No Nausea, No Vomiting, No Diarrhea, No Constipation, No Pain, No Heartburn, No Anorexia, No Dysphagia, No Hematochezia, No Melena, No Flatulence, No Jaundice Genitourinary: No Dysmenorrhea, No DUB, No Dyspareunia, No Dysuria, No Urinary Frequency, No Hematuria, No Urinary Incontinence, No Urgency, No Flank Pain, No Urinary Flow Changes, No Hesitancy Musculoskeletal: No Arthralgias, No Myalgias, No Joint Swelling, No Joint Stiffness, No Back Pain, No Neck Pain, No Injury History Skin: No Skin Lesions, No Pruritis, No Hair Changes, No Breast/Skin Changes, No Nipple Discharge Neuro: No Weakness, No Numbness, No Paresthesias, No Loss of Consciousness, No Syncope, No Dizziness, No Headache, No Coordination Changes, No Recent Falls Psych: No Anxiety/Panic, No Depression, No Insomnia, No Personality Changes, No Delusions, No Rumination, No SI/HI/AH/VH, No Social Issues, No Memory Changes, No Violence/Abuse Hx., No Eating Concerns Heme/Lymph: No Bruising, No Bleeding, No Transfusions History, No Lymphadenopathy Endocrine: No Polyuria, No Polydipsia, No Temperature Intolerance Physical Exam Physical Exam: VITALS: Reviewed. WEIGHT/BMI reviewed. GEN: Healthy appearing, well-developed, NAD. PSYCH: +anxious HEENT -Head: NC/AT; -Eyes: PERRL, EOMI. No discharge or redn ess; -Ears: External ears are normal. Normal TMs. -Nose: Normal nares. -Mouth and throat: MMM. Normal gums, muc antoni, palate,. Good dentition. NECK: Supple, with no masses. CV: RRR, no m/r/g. LUNGS: CTAB, no w/r/c. ABD: Soft, NT/ND, NBS, no masses or organomegaly. : N/A SKIN: Warm, well perfused. No skin rashes or abnormal lesions. MSK: No deformities, Normal gait. EXT: No clubbing, cyanosis, or edema. NEURO: Ambulating with no limitations. Normal muscle strength and tone. No focal deficits. intermittently confused Results & Data Results & Data Vital Signs (Past 12 Hours) Vital Signs Temp Pulse Pulse Resp BP BP Pulse Ox 12/24/24 00:00 89 20 143/58 H 100 12/23/24 23:00 93 H 20 154/93 H 98 12/23/24 22:45 98 H 12/23/24 22:00 78 20 168/101 H 98 12/23/24 21:09 88 16 154/93 H 100 12/23/24 21:00 88 16 154/93 H 98 12/23/24 20:01 80 15 159/101 H 98 12/23/24 20:00 94 H 20 159/101 H 100 12/23/24 19:30 82 22 124/76 100 12/23/24 19:01 84 26 H 141/63 H 96 12/23/24 18:46 98 12/23/24 18:46 82 20 152/69 H 99 12/23/24 18:46 82 20 153/69 H 96 12/23/24 18:46 97 12/23/24 18:38 83 12/23/24 18:23 36.6 C 97 H 20 100/58 L 100 O2 Del Method 12/24/24 00:00 Room Air 12/23/24 23:00 Room Air 12/23/24 22:45 12/23/24 22:00 Room Air 12/23/24 21:09 12/23/24 21:00 Room Air 12/23/24 20:01 12/23/24 20:00 Room Air 12/23/24 19:30 Room Air 12/23/24 19:01 12/23/24 18:46 Room Air 12/23/24 18:46 Room Air 12/23/24 18:46 Room Air 12/23/24 18:46 Room Air 12/23/24 18:38 12/23/24 18:23 Room Air Laboratory Results 12/23/24 12/23/24 20:35 18:53 WBC 13.36 H RBC 5.55 H Hgb 13.7 Hct 43.1 MCV 77.7 L MCH 24.7 L MCHC 31.8 L RDW Std Deviation 49.9 H RDW Coeff of Azam 18.9 H Plt Count 343 MPV 9.7 Immature Gran % (Auto) 0.3 Neut % (Auto) 64.2 Lymph % (Auto) 25.7 Blair % (Auto) 9.2 Eos % (Auto) 0.3 Baso % (Auto) 0.3 Neut # (Auto) 8.58 H Lymph # (Auto) 3.43 H Blair # (Auto) 1.23 H Eos # (Auto) 0.04 Baso # (Auto) 0.04 Immature Gran # (Auto) 0.04 PT 10.9 INR 1.0 APTT 25 PTT Ratio 0.9 Sodium 140 Potassium 3.1 L Chloride 107 Carbon Dioxide 24 Anion Gap 9 BUN 38 H Creatinine 1.12 Est Cr Clr Drug Dosing Not Reportable eGFR 50.65 BUN/Creatinine Ratio 33.9 H Glucose 132 H Calcium 10.1 Magnesium 2.0 Total Bilirubin 0.6 AST 43 H ALT 23 Alkaline Phosphatase 112 H Total Creatine Kinase 330 H Troponin I High Sens 94.2 H* 97.3 H* Total Protein 7.1 Albumin 4.1 Globulin 3.0 Albumin/Globulin Ratio 1.4 TSH 4.616 H Free T4 0.87 Diagnostic Findings Cervical Spine CT 12/23/24 18:35 EXAM: CT cervical spine wo con CLINICAL HISTORY: Fall. TECHNIQUE: CT scan of the cervical spine was performed without the administration of intravenous contrast. Contiguous axial images were obtained from the skull base to the upper thoracic spine. Coronal and sagittal reformatted images were also reviewed. One of the following dose reduction techniques was utilized for this exam. Automated exposure control, adjustment of the mA and/or kV according to patient size, and use of iterative reconstruction. COMPARISON: CT cervical spine on 03/26/2022 FINDINGS: Vertebrae: No evidence of acute fracture or dislocation. Loss of cervical lordosis with mild reversal of curvature. Diffuse osteopenic changes noted. Grade I minimal retrolisthesis of C5 over C6, degenerative in nature. Multilevel anterior and posterior osteophytes with uncovertebral hypertrophy noted. Maintained vertebral heights. Intervertebral Discs: Moderate to severe reduction of C4-C5 to C6-C7 intervertebral disc spaces. Multilevel posterior disc osteophyte complexes resulting in neural foraminal narrowing accentuated by facetal arthropathy. Facet Joints: Moderate to severe degenerative changes. Prevertebral Soft Tissues: The prevertebral soft tissues are normal in thickness without evidence of mass or abnormal fluid collection. Additional Findings: Visualized sections of upper thorax show partially visualized 10 mm nodular subpleural lesion in medial aspect of right apex with a small calcific focus in it. Few small 3-4 mm nodules in left apex. These sections were not covered on prior CT study. Focal fibrocystic change in lateral aspect of right apex. Mild bilateral apical fibrosis. Diffuse centrilobular emphysematous changes in visualized upper lobes. Left-sided nasal septal deviation with spur. IMPRESSION: 1. No evidence of acute fracture, dislocation in the cervical spine. 2. Moderate cervical spondylodegenerative changes as described above, mild interval progression since prior CT study dated 03/26/2022. 3. Visualized sections of upper thorax show partially visualized 10 mm nodular subpleural lesion in medial aspect of right apex with a small calcific focus in it. Few small 3-4 mm nodules in left apex. Warrant CT chest for further assessment. Electronically signed by Joss Pedersen 12-23-2024 9:33 PM Chest X-Ray 12/23/24 18:35 EXAM: XR chest 1V portable CLINICAL HISTORY: Weakness. TECHNIQUE: X-ray images of the chest were obtained in AP portable projection COMPARISON: 05/12/2024. FINDINGS: Pulmonary Parenchyma: Unchanged diffuse interstitial thickening with thin fibrotic/atelectatic bands at lower zones. No evidence of consolidation, collapse, or focal opacities. No pulmonary nodules identified. No evidence of pleural effusion or pleural thickening. Heart and Mediastinum: Heart size and shape are normal. No mediastinal widening or masses. No hilar or mediastinal lymphadenopathy. Aortic arch calcified atheromatous plaque (unchanged). Loop recorder is noted Bony Thorax: Bony thorax appears intact without fractures or deformities. Soft Tissues: Soft tissues overlying the chest wall are unremarkable. IMPRESSION: 1. Diffuse interstitial thickening with thin fibrotic/atelectatic bands at lower zones likely representing post inflammatory sequel. 2. No interval changes as compared to the previous study. Electronically signed by Joss Pedersen 12-23-2024 8:[address] 12/23/24 18:35 EXAM: CT head/brain wo con CLINICAL HISTORY: fall TECHNIQUE: Axial noncontrast CT scan of the brain was performed from the skull base to the high parietal region .One of the following dose reduction techniques were utilized for this exam: Automated exposure control, adjustment of the mA and/or kV according to patient size, use of iterative reconstruction. COMPARISON: 10/15/2022 FINDINGS: There are ill-defined iso-to hypodense areas noted in the subcortical and periventricular white matter bilaterally, suggestive of microvascular ischemic changes. The ventricular system, cortical sulci and basal cisterns are prominent consistent with senile changes. Prominent extra-axial spaces in bilateral frontal regions, likely representing chronic subdural hygromas. The visualized brain parenchyma shows normal appearance. No intracerebral or extra axial hematoma. Normal CT appearance of the posterior fossa structures namely the cerebellar hemispheres, brainstem and cerebellar peduncles. The cerebello-pontine angles are clear. The osseous structures in the skull base are unremarkable. No definite calvarium fractures. The scanned paranasal sinuses are clear. Bilateral mastoid air cells appear unremarkable. IMPRESSION: 1. No acute intracranial traumatic injury detected. 2. Chronic microvascular ischemic changes and senile cortical atrophy, grossly unchanged. Electronically signed by Joss Pedersen 12-23-2024 9:24 PM Pelvis X-Ray 12/23/24 18:35 EXAM: XR pelvis 1-2V routine CLINICAL HISTORY: fall TECHNIQUE: X-ray images of the pelvis were obtained in anteroposterior (AP) projection. COMPARISON: No prior studies available for comparison. FINDINGS: Bone Structure: Pelvic bones, including the iliac wings, ischium, pubis, and sacrum, are normal and intact. No evidence of fractures, dislocations, or significant osseous lesions. Moderate degree dextroscoliosis is noted in the visualized lumbar spine. Hip Joints: Hip joints are normal with preserved joint spaces. No evidence of hip dislocation, subluxation, or significant degenerative changes. Acetabulum: Acetabular structures appear normal and intact. No signs of acetabular fracture or dysplasia. Symphysis Pubis: Symphysis pubis is normal and intact. No evidence of separation or widening. Sacroiliac Joints: Sacroiliac joints appear normal and unremarkable. No evidence of sacroiliitis or significant degenerative changes. Soft Tissues: Visualized soft tissues are normal and unremarkable. No soft tissue swelling, calcifications, or masses. IMPRESSION: Normal X-ray of the pelvis. No evidence of acute fractures, dislocations, or significant degenerative changes. Disclaimer: A subtle bone abnormality or fracture may not be readily apparent on X-rays, thus clinical correlation and further imaging including follow-up CT, MRI, or follow-up X-rays are advised as needed. Electronically signed by Joss Pedersen 12-23-2024 8:39 PM Chest CTA 12/23/24 20:02 Exam(s): CTA CHEST IV Amt: 118 cc opti 320 EXAM: CT Angiography Chest With Intravenous Contrast CLINICAL HISTORY: Reason for exam: PE. TECHNIQUE: Axial computed tomographic angiography images of the chest with intravenous contrast. CTDI is 11.87 mGy and DLP is 576.44 mGy-cm. Automated exposure control was utilized for the study. A dose lowering technique was utilized adhering to the principles of ALARA. MIP reconstructed images were created and reviewed. COMPARISON: No relevant prior studies available. FINDINGS: Pulmonary arteries: Unremarkable. No pulmonary embolism. Aorta: There is infrarenal abdominal aortic aneurysm, measuring 4.8 cm in diameter and incompletely included in the [id number]. Lungs: There is 2.5 cm diameter focus of groundglass density seen posteriorly in the left lower lobe. There are some consolidative and groundglass densities seen in the dependent right lower lobe. There is right middle lobe nodule measuring 6 mm in diameter on image 62, series 2. There is 1.9 cm ill-defined groundglass density seen in the right upper lobe on image 77, series 2. Mild centrilobular emphysema. 3.5 mm right upper lobe nodule seen on image 95, series 2. 1.1 cm diameter right apical nodule seen on image 110, series 2. There is irregular 11 mm diameter nodular density seen in the right lung apex on image 109, series 2. Stable subpleural nodularity seen anterolaterally in the left upper lobe on image 100, series 3. Pleural space: Unremarkable. No significant effusion. No pneumothorax. Heart: Unremarkable. No cardiomegaly. No significant pericardial effusion. No evidence of RV dysfunction. Mediastinum: Small hiatus hernia. Bones/joints: No acute fracture. No dislocation. Soft tissues: Unremarkable. Lymph nodes: Unremarkable. No enlarged lymph nodes. IMPRESSION: No acute pulmonary embolism. 1. Multifocal nodular densities some of which appear to be of inflammatory etiology. Follow-up CT suggested in 4 weeks time for further assessment 2. Consolidative and groundglass densities in the right lower lobe which are stable since 06/10/24 CT 1.1 cm diameter nodular density located medially in the right lung apex is stable since prior study from 06/10/24. 3. Infrarenal abdominal aortic aneurysm. Electronically signed by: Johann Traore MD 12/23/24 21:17 PM Abdomen/Pelvis CT 12/23/24 20:37 Exam(s): CT ABDOMEN + PELVIS With Contrast IV Amt: 90 cc opti 320 EXAM: CT Abdomen and Pelvis With Intravenous Contrast CLINICAL HISTORY: Reason for exam: aaa. TECHNIQUE: Axial computed tomography images of the abdomen and pelvis with intravenous contrast. CTDI is 22.69 mGy and DLP is 993.77 mGy-cm. Automated exposure control was utilized for the study. A dose lowering technique was utilized adhering to the principles of ALARA. CONTRAST: Patient received 90 cc opti 320 of IV contrast COMPARISON: No relevant prior studies available. FINDINGS: ABDOMEN: Liver: Unremarkable. No mass. Gallbladder and bile ducts: Cholecystectomy. No ductal dilation. Pancreas: Unremarkable. No mass. No ductal dilation. Spleen: Unremarkable. No splenomegaly. Adrenals: Unremarkable. No mass. Kidneys and ureters: Unremarkable. No solid mass. No hydronephrosis. Stomach and bowel: Unremarkable. No obstruction. No mucosal thickening. PELVIS: Appendix: No findings to suggest acute appendicitis. Bladder: Unremarkable. No mass. Reproductive: Unremarkable as visualized. ABDOMEN and PELVIS: Intraperitoneal space: Unremarkable. No free air. No significant fluid collection. Bones/joints: No acute fracture. No dislocation. Moderately advanced multilevel degenerative disc disease changes seen in the lumbar spine. There is mild levoscoliosis. Vasculature: Infrarenal abdominal aortic aneurysm measuring 4.9 cm in diameter. Lymph nodes: Unremarkable. No enlarged lymph nodes. IMPRESSION: Infrarenal abdominal aortic aneurysm. No dissection. Electronically signed by: Johann Traore MD 12/23/24 21:37 PM PG Care Time/CCT Total # of Minutes Spent Total Time Spent with Patient: Total time spent is greater than 50% in coordination of care (as documented) at patient's floor/unit and/or counseling patient: Coding Level of Care Code 50281 INT INP/OBS CARE MIN Diagnoses Non-ST elevation [place] (NSTEMI) I21.4 Anxiety F41.9 Hypokalemia E87.6 ASHVIN (acute kidney injury) N17.9 Fall W19.XXXA
[2024-12-24] MEDS: SODIUM CHLORIDE 0.9% 500 ML IV SCH (03:27)
[2024-12-24] MEDS ORDERED: ONDANSETRON INJ 2 MG/ML 2 ML VIAL IV PRN (06:23)
[2024-12-24] MEDS ORDERED: POLYETHYLENE (MIRALAX) 17 GM PACK PO PRN (06:23)
[2024-12-24] MEDS ORDERED: MAGNESIUM HYDROXIDE SUSP 30 ML UDC PO PRN (06:23)
[2024-12-24] MEDS ORDERED: FLUTICASONE PROPIONATE NA SPR 16 GM BTL NAE PRN (06:23)
[2024-12-24] MEDS ORDERED: NITROGLYCERIN SL 0.4 MG/TAB TAB SL PRN (06:23)
[2024-12-24] MEDS: ACETAMINOPHEN 325 MG TAB PO PRN (07:36)
[2024-12-24 08:13] LABS: Appearance Urine Clear (Clear); Bacteria Urine Automated 4+ (None Seen); Cast Urine Automated 0-2 /lpf (0-2); Epithelial Cell Urine Auto 0-2 /hpf (0-2); Glucose Urine UA Negative (Negative); RBC Urine Automated 0-2 /hpf (0-2); WBC Urine Automated 21-50 /hpf (0-5)
[2024-12-24] MEDS: MIDODRINE HCL 2.5 MG TAB PO SCH (09:18)
[2024-12-24] MEDS: VENLAFAXINE HCL XR 150 MG CAPXR PO SCH (09:19)
[2024-12-24] MEDS: APIXABAN 5 MG TABLET PO SCH (09:19)
[2024-12-24] MEDS: FAMOTIDINE 40 MG TABLET PO SCH (09:20)
[2024-12-24] MEDS: LEVOTHYROXINE SODIUM 50 MCG TABLET PO SCH (09:20)
[2024-12-24] MEDS: ATORVASTATIN 40 MG TAB PO SCH (09:20)
[2024-12-24] MEDS: Patient's HEIGHT &/or WEIGHT Needed STA (09:21)
[2024-12-24] MEDS: POTASSIUM CHLORIDE CRTAB 20 MEQ TABCR PO STA (10:17)
[2024-12-24] MEDS ORDERED: NYSTATIN POWDER 15GM BTL EXT PRN (10:29)
[2024-12-24] MEDS: ALUMINUM/MAGNESIUM SUSP 30 ML UDC PO PRN (13:42)
[2024-12-24] MEDS: SODIUM CHLORIDE 0.65% NA SOLN 45 ML (OCEAN) ONE (14:55)
--- NOTE | 2024-12-24 18:53 | XCELERA ---
[id number]
[2024-12-24] MEDS: BREXPIPRAZOLE 1 MG TAB PO SCH (19:40)
[2024-12-24] MEDS: VENLAFAXINE HCL XR 75 MG CAPXR PO SCH (19:42)
[2024-12-24] MEDS: MELATONIN 3 MG TAB PO PRN (21:05)
[2024-12-25 08:24] LABS: Hematocrit (blood only) 37.1 % (37.0-47.0); Hemoglobin 11.9 g/dl (12.0-16.0); Immature Granulocytes # (auto) 0.03 K/uL (0.01-0.20); Immature Granulocytes % (auto) 0.4 %; Mean Corpuscular Hemoglobin 25.6 pg (25.0-34.0); Mean Corpuscular Volume 79.8 fL (80.0-100.0); Platelet Count 248 K/uL (130-400); RDW Standard Deviation 52.7 fL (36.4-46.3); Red Blood Count 4.65 M/uL (4.20-5.40); White Blood Count 8.29 K/ul (4.8-10.8)
[2024-12-25] MEDS: cefTRIAXone SODIUM 1,000 MG/50 ML BAG IV SCH (08:38)
[2024-12-25 08:47] LABS: Anion Gap 4.0 (3-11); Blood Urea Nitrogen 19.0 mg/dl (6-23); Calcium 9.6 mg/dl (8.6-10.3); Carbon Dioxide 24.0 mmol/L (21-32); Chloride 112.0 mmol/L (98-107); Creatinine Clr Calc Pharmacy 51.3 ml/min; Glucose 101.0 mg/dl (70-99(Fasting)); Potassium 3.8 mmol/L (3.5-5.1); Sodium 140.0 mmol/L (136-145)
--- NOTE | 2024-12-25 14:47 | Cardiology Consultation ---
Date of Consultation December 25, 2024 Assessment & Plan (1) Hypertrophic cardiomyopathy: (2) Moderate aortic stenosis: (3) Elevated troponin: (4) Acquired left ventricular outflow tract obstruction: (5) Mitral regurgitation: Plan ASSESSMENT/PLAN: 1. Possible hypertrophic cardiomyopathy: Asymptomatic in this regard. LVOT gradient in the setting of FARHAT, however recent GI illness and quite anxious. Remain well-hydrated. Can follow-up with her primary manager legal in the o utpatient setting. Could consider beta-connie for symptoms, however is on midodrine due to orthostatic symptoms in the outpatient setting. No change in therapy today. 2. Elevated troponin: Likely demand ischemia in the setting of her degree of LVH/hypertrophic cardiomyopathy. She did not present with acute coronary syndrome. Ischemic evaluation not necessary at this time. 3. Mitral regurgitation: Nonsevere. Can be followed in the outpatient setting. 4. Systolic anterior motion of the mitral leaflet with LVOT obstruction: She is asymptomatic. If symptomatic in the future and can tolerate, could consider low-dose beta-connie. 5. UTI: Per primary hospitalist service. 6. Aortic stenosis: Difficult to quantify on echo during this hospital stay. Continue to follow-up with her primary manager legal. Has been nonsevere. 7. AAA: Surveillance in the outpatient setting. 8. Disposition: She was not admitted for cardiac symptoms but rather anxiety after running out of her Xanax. No further inpatient cardiology workup is indicated at this time. She can follow-up with Dr. Henry, her primary manager legal for ongoing outpatient care. Patient care communicated with Dr. Knott of the primary hospitalist service. Thank you for allowing me to participate in the care of your patient. Please call for any other questions or concerns. Sincerely, Marco Walker M.D. History of Present Illness Reason for Consultation: "Pt wants to talk about her heart before D/C" Requesting Physician: Aroldo Knott MD, PhD Attending Physician: Aroldo Knott MD, PhD History of Present Illness Ms. Sweeney is a pleasant 79-year-old female with a history significant for moderate aortic stenosis, pulmonary embolism, COPD, stroke, dyslipidemia, orthostatic hypotension/balance disorder and anxiety. Her primary manager legal is Dr. Henry. She was admitted on 12/23/2024 after presenting to the ER due to feeling anxious after running out of her Xanax. She states that 1 week ago, she developed nausea, vomiting, and diarrhea which lasted for 5 days. She then ran out of Xanax and her anxiety worsened. She has a chronic balance issue and her balance felt off and at one point she went to sit on her chair but missed the chair and fell onto her buttocks. While in the ER, a troponin level was ordered and it was mildly elevated at 97 which then trended downward. She denies chest pain, shortness of breath, syncope, near syncope, palpitations, or bleeding such as melena, hematochezia, or hematuria. She has chronic lower extremity swelling which she believed was stable. She had further cardiac testing including ECGs and echo. Her primary hospitalist, Dr. Knott, planned on discharging her today but she requested to speak to a manager legal given her abnormal testing. Review of systems: As above. Family history: Father from [place] at the age of 60. Social history: Quit smoking in 1997 after 35 years. No alcohol or drug abuse. She lives alone. She has 1 daughter but describes the relationship as tense. She was unaccompanied. Allergies Allergy/AdvReac Type Severity Reaction Status Date / Time adhesive tape Allergy Mild Rash Verified 12/23/24 22:38 levofloxacin AdvReac Intermediate NERVOUS Verified 12/23/24 22:38 amoxicillin AdvReac Mild YEAST Verified 12/23/24 22:38 INFECTIONS Home Medications Medication Instructions Recorded Confirmed Type Lactobacil.acidophilus-Bifido.animalis 1 cap PO QAM ##0 11/08/16 12/23/24 History 5 billion cell sprinkle capsule (Probiotic) cqfrwpi-olycizuuyqqmk-azxzkgsx 250 1 tab PO Q6H PRN Pain 07/02/23 12/23/24 History mg-250 mg-65 mg tablet (Excedrin Extra Strength) fluticasone propionate 50 2 spray SANTY DAILY PRN Nasal 07/12/23 12/23/24 Rx mcg/actuation nasal Congestion #16 grams spray,suspension (Flonase Allergy Relief) venlafaxine 75 mg capsule,extended 75 mg PO HS #90 caps 01/04/24 12/23/24 Rx release 24 hr midodrine 2.5 mg tablet 2.5 mg PO BID #180 tabs 01/29/24 12/23/24 Rx apixaban 5 mg tablet (Eliquis) 5 mg PO BID #180 tabs 01/30/24 12/23/24 Rx atorvastatin 80 mg tablet 80 mg PO QAM #90 tabs 01/30/24 12/23/24 Rx venlafaxine 150 mg 150 mg PO QAM #90 caps 04/03/24 12/23/24 Rx capsule,extended release 24 hr levothyroxine 50 mcg tablet 50 mcg PO QAM #90 tabs 08/20/24 12/23/24 Rx (Synthroid) biotin 5,000 mcg chewable tablet 5,000 mcg PO DAILY 10/15/24 12/23/24 History lactobacillus combination no.4 3 3,000 mmu cells PO DAILY 10/15/24 12/23/24 History billion cell capsule (Probiotic) alprazolam 1 mg tablet 1 mg PO HS PRN anxiety 12/18/24 12/23/24 History brexpiprazole 1 mg tablet 1 mg PO DAILY 12/18/24 12/23/24 History bupropion HCl 300 mg 24 hr tablet, 300 mg PO QAM 12/18/24 12/23/24 History extended release topiramate 50 mg capsule,extended 50 mg PO DAILY 12/18/24 12/23/24 History release 24 hr albuterol sulfate 90 mcg/actuation 1 - 2 puff inhalation .Q4-6HR PRN 12/23/24 12/23/24 History aerosol inhaler SOB multivitamin with minerals 1 tab PO DAILY 12/23/24 12/23/24 History cefuroxime axetil 500 mg tablet 500 mg PO Q12H 2 days #4 tabs 12/25/24 Rx Problem List (Updated 12/25/24 @ 20:13 by Adonay Walker MD) Mitral regurgitation Acquired left ventricular outflow tract obstruction Elevated troponin Hypertrophic cardiomyopathy ASHVIN (acute kidney injury) AAA (abdominal aortic aneurysm) (Acute) Hypokalemia (Acute) Abnormal EKG (Acute) Anxiety (Acute) Non-ST elevation [place] (NSTEMI) (Acute) Abdominal bruit Hematoma Moderate aortic stenosis Lower extremity edema Postmenopausal Prediabetes Constipation GERD (gastroesophageal reflux disease) Encounter for interrogation of cardiac recorder Weight loss Implantable loop recorder present Tremor Headache Medication management History of colon polyps Family history of colon cancer History of TIA (transient ischemic attack) Anemia Complex laceration of scalp (Acute) Collapse (Acute) Closed head injury (Acute) Near syncope (Acute) Scalp laceration Fall Carotid stenosis, left Fronto-temporal dementia Hypoxia (Acute) COPD (chronic obstructive pulmonary disease) Myelopathy Executive function deficit Ataxia Anemia Lumbosacral radiculopathy Peripheral neuropathy Carotid stenosis Neurologic gait disorder Heel pain Balance disorder Peroneal tendinitis, left leg Bright red blood per rectum Melena Encounter for pre-operative examination Dizziness Cerebral atrophy Basilar artery stenosis TIA (transient ischemic attack) (Acute) Pain of left calf Acromioclavicular joint arthritis Patellar bursitis of left knee SNHL (sensorineural hearing loss) Otalgia, right ear Hypothyroidism (Acute) Chronic reflux esophagitis (Acute) Hypertension (Acute) Joint pain in the shoulder/clavicle region (Acute) Reflex incontinence (Acute) Toxic multinodular goiter (Acute) 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 Sotomayor and Dr. 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 Sotomayor and Dr. Hayden monitoring Pulmonary embolism hx of 2019 > related to an injury > remains on Eliquis Patient History Medical History Postmenopausal HRT (hormone replacement therapy) DVT (deep venous thrombosis) left leg > hx of 2019 > related to an injury > remains on Eliquis Transient ischemic attack (TIA) 2020--per pt reason for eliquis--follows with PCP VAIN (vaginal intraepithelial neoplasia) remote, 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 Poor historian Laryngopharyngeal reflux Cardiac murmur follows with Dr. Henry Former smoker Hiatal hernia Internal hemorrhoids Tubular adenoma of colon Osteoarthritis Hypothyroidism Hearing deficit L EAR Chronic obstructive pulmonary disease rare res inh use per pt Lung abscess (12/17/13) pt unaware Surgical History History of loop recorder has at present > seeing cardio this week for check up (07/02/23) S/P excision of lipoma (08/08/19) Bilateral Arm Lipomas Excision (x7)(Bilateral) Dr. Asencio 08-08-19 History of esophagogastroduodenoscopy (EGD) w/ dilation History of oral surgery History of total abdominal hysterectomy and bilateral salpingo-oophorectomy History of tubal ligation H/O removal of cyst R ARM History of breast biopsy R BREAST-BENIGN History of dilatation and curettage History of arthroscopy left knee History of colonoscopy last 09/09/20 @ [facility] History of cholecystectomy History of tooth extraction History of tonsillectomy History of thyroidectomy, subtotal L SIDE History of eye surgery Left History of cataract surgery RT/LT Family History Grandmother Family history of diabetes mellitus MATERNAL Mother Family hx of colon cancer Colorectal cancer Father Coronary heart disease Daughter Slow to wake up after anesthesia Denies family history of Ovarian cancer Prostate cancer Myocardial infarction Breast cancer Social History Smoking Status: Never smoker Tobacco Type: Cigarettes Age Started Using Tobacco: 16; Age Quit Using Tobacco: 52; packs per day: 1; Second Hand Exposure: No; Do You Dip or Chew Tobacco: No; Hx Alcohol Use: No Hx Substance Use: No Preferred Language: Portuguese Communication Ability: [employer] In[employer] Required: No Beliefs That Will Affect Care: None marital status: Current Living Situation: Alone current occupational status: retired Feels Safe at Home: Yes Dental Care, Regularly: Yes Physical Activity Frequency: Does not Exercise Seatbelt Use: always Sunscreen Use: No Assistive Devices: None Physical Exam Physical Exam: Gen.: No acute distress. Alert and oriented. HEENT: Anicteric sclera. Neck: No JVD. Bilateral bruits vs radiation of cardiac murmur. Normal carotid upstrokes bilaterally. Cardiac: Regular. Normal S1-S2. 2/6 mid peaking systolic ejection murmur heard best at right upper sternal border. No rubs or gallops. Pulmonary: Clear to auscultation bilaterally without wheezes, rales, or rhonchi. Abdomen: Soft, nontender, nondistended, with normoactive bowel sounds. No bruits noted. Extremities: 2+ radial pulses bilaterally. 2+ posterior tibialis pulses bilaterally. No edema or cyanosis. Results & Data Vital Signs (Past 12 Hours) Vital Signs Temp Pulse Pulse Resp BP Pulse Ox O2 Del Method 12/25/24 11:40 36.6 C 65 16 171/69 H 98 Nasal Cannula 12/25/24 09:00 62 12/25/24 09:00 Room Air 12/25/24 08:29 36.2 C L 62 16 130/65 99 Room Air 12/25/24 02:57 36.6 C 76 18 133/69 93 Room Air Laboratory Results Laboratory Results - last 24 hr 12/25/24 08:07 WBC 8.29 RBC 4.65 Hgb 11.9 L Hct 37.1 MCV 79.8 L MCH 25.6 MCHC 32.1 RDW Std Deviation 52.7 H RDW Coeff of Azam 18.8 H Plt Count 248 MPV 9.7 Immature Gran % (Auto) 0.4 Neut % (Auto) 47.9 Lymph % (Auto) 38.2 [place] % (Auto) 8.3 Eos % (Auto) 4.5 Baso % (Auto) 0.7 Neut # (Auto) 3.97 Lymph # (Auto) 3.17 [place] # (Auto) 0.69 H Eos # (Auto) 0.37 Baso # (Auto) 0.06 Immature Gran # (Auto) 0.03 Sodium 140 Potassium 3.8 D Chloride 112 H Carbon Dioxide 24 Anion Gap 4 BUN 19 Creatinine 0.86 Est Cr Clr Drug Dosing 51.3 eGFR 69.54 BUN/Creatinine Ratio 22.1 H Glucose 101 H Lactate 1.0 Calcium 9.6 Procalcitonin < 0.02 Diagnostic Findings Echo report reviewed: Echo 12/24/2024: Normal LV size. EF > 70%. No regional wall motion abnormalities. Severe asymmetric LVH involving the basal anteroseptum. Otherwise moderate LVH. Aortic valve appeared stenotic but degree of stenosis difficult to quantify with available Doppler images. Farhat with LVOT obstruction (peak gradient 69). Moderate MR. Labs notable for mildly elevated high-sensitivity troponin (peak 97). Normal potassium, stable renal function, normal magnesium, slightly elevated AST, normal ALT, slightly elevated TSH, minimal anemia. Urine culture positive for E. coli. ECGs personally reviewed: ECG 12/23/2024 at 1836: Sinus with PACs 85 bpm. LVH with repolarization abnormality. Prolonged QT. ECG 12/23/2024 at 1906: Sinus rhythm with premature supraventricular ectopic complexes. 81 bpm. LVH with repolarization abnormality. Prolonged QT. ECG 12/25/2024 at 5:16 AM: Sinus rhythm 63 bpm. LVH with repolarization abnormal ity. History and physical report reviewed. Outpatient cardiology note reviewed. CTA chest 12/23/2024: Infrarenal AAA. Multi focal nodular densities per radiology. Consolidative and groundglass densities right lower lobe stable from 06/10/[address] abdomen/pelvis 12/23/2024: Infrarenal AAA (4.9 cm). No dissection. Telemetry personally reviewed: Sinus rhythm. Medications Administered Current Inpatient Medications Acetaminophen (Acetaminophen 325 Mg Tab) 650 mg PO Q4H PRN PRN Reason: Pain or Fever Stop: 01/23/25 06:22 Last Admin: 12/25/24 12:00 Dose: 650 mg Al Hydrox/Mg Hydrox/Simethicone (Aluminum/Magnesium Susp 30 Ml Udc) 15 ml PO Q4H PRN PRN Reason: Dyspepsia Stop: 01/23/25 06:22 Last Admin: 12/24/24 13:42 Dose: 15 ml Alprazolam (Alprazolam 0.5 Mg Tablet) 1 mg PO HS PRN PRN Reason: anxiety Stop: 01/23/25 06:22 Last Admin: 12/24/24 21:05 Dose: 1 mg Apixaban (Apixaban 5 Mg Tablet) 5 mg PO BID [facility] Stop: 01/23/25 08:59 Last Admin: 12/25/24 10:21 Dose: 5 mg Atorvastatin Calcium (Atorvastatin 40 Mg Tab) 80 mg PO QAM [facility] Stop: 01/23/25 08:59 Last Admin: 12/25/24 08:13 Dose: 80 mg Brexpiprazole (Brexpiprazole 1 Mg Tab) 1 mg PO DAILY [facility] Stop: 01/23/25 18:44 Last Admin: 12/25/24 08:14 Dose: 1 mg Bupropion HCl (Bupropion Xl 300 Mg Tabcr) 300 mg PO QAM [facility] Stop: 01/23/25 08:59 Last Admin: 12/25/24 08:13 Dose: 300 mg Famotidine (Famotidine 40 Mg Tablet) 40 mg PO BID [facility] Stop: 01/23/25 08:59 Last Admin: 12/25/24 08:13 Dose: 40 mg Fluticasone Propionate (Fluticasone Propionate Na Spr 16 Gm Btl) 2 sprays SANTY DAILY PRN PRN Reason: Nasal Congestion Stop: 01/23/25 06:22 Ceftriaxone Sodium (Rocephin) 1,000 mg in 50 mls @ 100 mls/hr IV Q24H LEXX Stop: 12/27/24 08:14 Last Infusion: 12/25/24 09:11 Dose: Infused Levothyroxine Sodium (Levothyroxine Sodium 50 Mcg Tablet) 50 mcg PO DAILYBB [facility] Stop: 01/23/25 06:44 Last Admin: 12/25/24 06:02 Dose: 50 mcg Magnesium Hydroxide (Magnesium Hydroxide Susp 30 Ml Udc) 30 ml PO Q12H PRN PRN Reason: Constipation Stop: 01/23/25 06:22 Melatonin (Melatonin 3 Mg Tab) 3 mg PO HS PRN PRN Reason: Sleep Stop: 01/23/25 06:22 Last Admin: 12/25/24 02:55 Dose: 3 mg Midodrine (Midodrine Hcl 2.5 Mg Tab) 2.5 mg PO BID [facility] Stop: 01/23/25 08:59 Last Admin: 12/25/24 08:13 Dose: 2.5 mg Miscellaneous (Topiramate 50 Mg Capsule,Extended Release 24hr) ~ Order Awaiting Action) 1 each N/A QS [facility] Stop: 01/23/25 07:59 Last Admin: 12/25/24 08:12 Dose: Not Given Nitroglycerin (Nitroglycerin Sl 0.4 Mg/Tab Tab) 0.4 mg SL Q5M PRN PRN Reason: Chest Pain Stop: 01/23/25 06:22 Nystatin (Nystatin Powder 15gm Btl) 1 appln EXT PRN PRN PRN Reason: Affected Skin Folds Stop: 01/23/25 10:28 Ondansetron HCl (Ondansetron Inj 2 Mg/Ml 2 Ml Vial) 4 mg IV Q6H PRN PRN Reason: Nausea Stop: 01/23/25 06:22 Polyethylene Glycol (Polyethylene (Miralax) 17 Gm Pack) 17 gm PO DAILY PRN PRN Reason: Constipation Stop: 01/23/25 06:22 Venlafaxine HCl (Venlafaxine Hcl Xr 75 Mg Capxr) 75 mg PO HS LEXX Stop: 01/23/25 20:59 Last Admin: 12/24/24 19:42 Dose: 75 mg Venlafaxine HCl (Venlafaxine Hcl Xr 150 Mg Capxr) 150 mg PO QAM LEXX Stop: 01/23/25 08:59 Last Admin: 12/25/24 08:13 Dose: 150 mg PG Care Time/CCT Total # of Minutes Spent Total Time Spent with Patient: Total time spent is greater than 50% in coordination of care (as documented) at patient's floor/unit and/or counseling patient: Coding Level of Care Code 66469 INT INP/OBS CARE 2/55MIN Diagnoses Hypertrophic cardiomyopathy I42.2 Moderate aortic stenosis I35.0 Elevated troponin R79.89 Acquired left ventricular outflow tract obstruction I51.89 Mitral regurgitation I34.0
[2024-12-25 16:52] VITALS: BP 154/84; PULSE 69; RESP 18; TEMP 97.3; O2SAT 99
--- NOTE | 2024-12-25 17:21 | Discharge Summary ---
Discharge Summary Date of Service December 25, 2024 Principal Dx & Hospital Course #1 = Principal Diagnosis (1) Non-ST elevation NV (NSTEMI): (2) Anxiety: (3) Hypokalemia: (4) ASHVIN (acute kidney injury): (5) Fall: Plan 79 years old female with a PMH of FULL CODE @ home, PE on Eliquis, COPD not on home O2 or home steroids, TIA, anxiety disorder off her home- scheduled xanax for one week for unclear reasons, and liu-sensitive E. coli UTI (as noted on 06/26/2019, 1:13pm urine culture), who came to [facility] ER on 12/24/2024 with complaints of feeling anxious and falling down in [facility] ER onto her buttocks. Patient was subsequently admitted to the inpatient hospitalist service @ [facility] on 12/24/2024 with the following diagnoses: 1. Acute toxic metabolic encephalopathy, RESOLVED on 12/25/2024 after starting ceftriaxone 1g IV x 1 dose (12/25/2024, 8:38am), due to acute E. coli UTI. 2. Generalized deconditioning, RESOLVED on 12/25/2024, due to acute E. coli UTI. 3. Acute hypokalemia with K 3.1 mmol/L (12/23/2024, 6:53pm), RESOLVED on 12/25/2024 with post-supplement K 3.8 mmol/L (12/25/2024, 8:07am), due to acute E. coli UTI. 4. Acute dehydration with BUN:creatinine ratio > 20:1 (cf., BUN 38, creatinine 1.12 on 12/23/2024, 6:53pm), RESOLVED on 12/25/2024 with heart healthy diet, due to acute E. coli UTI. 5. Acute type II NSTEMI with 97.3 pg/mL (12/23/2024, 6:53pm) and 94.2 pg/mL (12/23/2024, 8:35pm). Asymptomatic. Observe. 6. HOCM (as suggested by the echocardiographic finding of "systolic anterior motion of the mitral leaflet with LVOT obstruction (peak gradient 69 mm Hg)" on 12/24/2024, 9:49am TTE (CARDS Dr. Adonay Walker). Asymptomatic. Observe. Of the 5 diagnoses listed above, the patient continues to be treated for acute E. coli UTI with an electronic prescription for cefuroxime 500mg PO q12 (with the following instructions below), #4 tablets, transmitted to her [facility] [id number], [address] [place] [address], on 12/25/2024, prior to hospital discharge. Take 1 tablet in the morning (starting on 12/26/2024, 8:00am) and 1 tablet in the evening (starting on 12/26/2024, 8:00pm). Take 1 tablet in the morning (starting on 12/27/2024, 8:00am) and 1 tablet in the evening (starting on 12/27/2024, 8:00pm). Admission HPI Per Admitting Provider This is a 79 year old female with a PMH of PE on Eliquis, anxiety, COPD, hx of TIA - came to the ER due to feeling anxious; has been off of Xanax for a week and felt off mentally; states she's been taking this medication for the past 30 years or so. In the waiting room of the ER, she was trying to sit back in her seat and actually fell and landed on her buttocks. Imaging including Cervical spine CT, head CT, pelvis X-ray, abdominal/pelvis CT done and negative for acute injury. Labs were drawn and patient noted to have elevated troponin; >90. EKG done and shows LVH. Discharge Exam Constitutional General appearance: Comfortable, coherent, cooperative. Wide awake and alert. Not confused, lethargic, or obtunded. Speaks in complete, fluent, and articulate sentences without pause, interruption, cough, or wheeze. HEENT: NC/AT. EOMI. PERRL No rhinorrhea. No pharyngeal discharge. Neck: Supple, no stridor, bruit, goiter, JVD, or HJR. Lymph: No lymphadenopathy. Chest: Symmetric rise and fall with respirations. Non-tender to palpation. Lungs: Clear to auscultation and percussion. No audible wheeze, pectoriloquy, increase in tactile fremitus, or flatness/dullness to percussion at the bases. Heart: RRR, S1S2, no S3 or S4. Grade II/ early systolic murmur @ LLSB without radiation to the carotids, axilla, or back, and which remains invariant in regards to the respiratory cycle. Abd: Soft, non-tender, non-distended. No rebound, guarding, Corey's sign, or organomegaly. Bowel sounds auscultated in all 4 quadrants. Ext: No clubbing, cyanosis, or edema. 2+ pedal pulses bilaterally. Skin: No decubitus ulcer, exanthem, or enanthem. Neuro: Alert and oriented in regards to person, place, time, or situation. 5/5 motor strength in all 4 extremities, both proximally and distally. Psych: No suicidal ideation. No homicidal ideation. Discharge Plan Discharge Items Patient Disposition: Home - Self-Care Reason For Visit: CONFUSION Discharge Diagnosis: 1. Acute toxic metabolic encephalopathy, due to acute UTI. Condition on Discharge: Fair Activity: Resume your previous activity Lifting: Gradually increase as tolerated Bathing: No limitations Sexual Activity: When tolerated Exercise/Sports: Gradually increase as tolerated Driving/Machine Use: No limitations Weightbearing: Full weightbearing Non-emergency contact: Primary Care Provider Call non-emergency contact if: you have any medication questions Follow-up/Referrals: Pravin Drew MD [Primary Care Provider] - 12/29/24 3:00 pm (PCP follow up: 12/29/24 with P/A) Diet: Heart Healthy Addtl Attending Provider Instructions: See PCP Dr. Pravin Drew within 3-5 days for routine follow up visit and to see what the antibiotic sensitivities are for patient's acute E. coli UTI (as noted on 12/24/2024, 7:50am urine culture). Pending Studies at Discharge: Yes Studies:: See PCP Dr. Pravin Drew within 3-5 days for routine follow up visit and to see what the antibiotic sensitivities are for patient's acute E. coli UTI (as noted on 12/24/2024, 7:50am urine culture). Stand-Alone Forms: [employer], Smoking Cessation Medications and DC Order Prescriptions: New cefuroxime axetil 500 mg tablet 500 mg PO Q12H 2 Days Qty: 4 0RF Continued Probiotic 5 billion cell Capsule, Sprinkle 1 cap PO QAM Qty: 0 venlafaxine 75 mg capsule,extended release 24hr 75 mg PO HS Qty: 90 3RF midodrine 2.5 mg tablet 2.5 mg PO BID Qty: 180 3RF levothyroxine [Synthroid] 50 mcg tablet 50 mcg PO QAM Qty: 90 3RF brexpiprazole 1 mg tablet 1 mg PO DAILY bupropion HCl 300 mg tablet extended release 24 hr 300 mg PO QAM topiramate 50 mg capsule,extended release 24hr 50 mg PO DAILY alprazolam 1 mg tablet 1 mg PO HS PRN (Reason: anxiety) atorvastatin 80 mg tablet 80 mg PO QAM Qty: 90 3RF Eliquis 5 mg tablet 5 mg PO BID Qty: 180 3RF fluticasone propionate [Flonase Allergy Relief] 50 mcg/actuation spray,suspension 2 spray SANTY DAILY PRN (Reason: Nasal Congestion) Qty: 16 0RF biotin 5,000 mcg tablet,chewable 5,000 mcg PO DAILY Probiotic 3 billion cell capsule 3,000 mmu cells PO DAILY Rx Instructions: administer with a meal venlafaxine 150 mg capsule,extended release 24hr 150 mg PO QAM Qty: 90 3RF Excedrin Extra Strength 250-250-65 mg Tablet 1 tab PO Q6H PRN (Reason: Pain) multivitamin with minerals Tablet 1 tab PO DAILY albuterol sulfate 90 mcg/actuation HFA aerosol inhaler 1 - 2 puff INH .Q4-6HR PRN (Reason: SOB) Discontinued famotidine 40 mg tablet 40 mg PO BID Qty: 180 3RF Discharge Orders: Discharge Order (Routine); Ordered 12/25/24 Ordered By: Aroldo Knott Discharge Order- CHF (Routine); Ordered 12/25/24 Ordered By: Aroldo Knott Admission Data Admit Date/Time: 12/24/24 01:05 Attending Provider: Aroldo Knott Admit Provider: Erin Cisneros Primary Care Provider: Pravin Drew Other Providers: Erin Cisneros; Adonay Walker Hospital Stay Data Consultations 12/23/24 21:51 ED Decision to Admit Stat 12/25/24 10:51 Consult Cardiology Routine Diagnostic Imagining Performed 12/23/24 18:35 CT cervical spine wo con Stat CT head/brain wo con Stat 12/23/24 20:02 CT angio chest PE protocol Stat 12/23/24 20:37 CT abd pelvis IV con only Stat Pending Results Patient Have Any Pending Studies at Discharge: Yes Discharge Instructions Given to Patient (Per Discharging Provider) See PCP Dr. Pravin Drew within 3-5 days for routine follow up visit and to see what the antibiotic sensitivities are for patient's acute E. coli UTI (as noted on 12/24/2024, 7:50am urine culture). Total Time Total Time Spent Total Time Spent (In Minutes): 35 minutes. Of this time period, 19 minutes were spent in coordinating patient's discharge. Coding Level of Care Code 37506 INP/OBS DISCH >30 MIN Diagnoses Non-ST elevation NV (NSTEMI) I21.4 Anxiety F41.9 Hypokalemia E87.6 ASHVIN (acute kidney injury) N17.9 Fall W19.XXXA
--- NOTE | 2024-12-26 11:38 | Coding Query ---
CODING QUERY To promote full compliance with coding requirements relating to patient care, provider participation is requested in all cases of stone paver uncertainty. Please assist us with the question(s) below: Coding Question(s): Please specify below, in your clinical opinion, the diagnosis that was present on admission and most responsible for occasioning the inpatient admission: ( ) Acute Type 2 NSTEMI. Please specify further, in your clinical opinion, regarding an underlying cause: ( ) unknown underlying cause, or no underlying cause ( ) Underlying cause specified. Please specify ( ) Acute E. Coli UTI ( ) Acute Toxic Metabolic Encephalopathy due to acute E. Coli UTI ( ) Other: Please Specify Physician's Response(s): Thank you Melissa Carlton Principal Diagnosis: "that condition established after study, to be chiefly responsible for occasioning the admission of the patient to the hospital for care." Co-Existing Principal Diagnosis: "when two or more diagnoses equally meet the criteria for principal diagnosis as determined by the circumstances of admission, diagnostic work up, and/or therapy provided, and the Alphabetic Index, Tabular List, or another coding guideline does not provide sequencing direction, any one of the diagnoses may be sequenced first." "When the physician has documented what appears to be a current diagnosis in the body of the record, but has not included the diagnosis in the final diagnostic statement, the physician should be asked whether the diagnosis should be added." (Source Coding [facility] 2 QTR90. p3-4) ANY
--- NOTE | 2024-12-26 22:26 | Electrocardiogram Report ---
Test Reason : Blood Pressure : */* mmHG Vent. Rate : 85 BPM Atrial Rate : 85 BPM P-R Int : 110 ms QRS Dur : 102 ms QT Int : 464 ms P-R-T Axes : 60 24 116 degrees QTcB Int : 552 ms Sinus rhythm with short [place] with Premature supraventricular complexes Left ventricular hypertrophy with repolarization abnormality Prolonged QT Abnormal ECG When compared with ECG of 15-Oct-2022 16:29, QT has lengthened Premature supraventricular complexes are now Present Confirmed by Adonay Walker ([id number]) on 12/26/2024 10:26:23 PM Referred By: REFERRED SELF Confirmed By: Adonay Walker
--- NOTE | 2024-12-26 22:27 | Electrocardiogram Report ---
Test Reason : Blood Pressure : */* mmHG Vent. Rate : 81 BPM Atrial Rate : 81 BPM P-R Int : 122 ms QRS Dur : 96 ms QT Int : 492 ms P-R-T Axes : 69 20 145 degrees QTcB Int : 571 ms Normal sinus rhythm Premature supraventricular complexes Left ventricular hypertrophy with repolarization abnormality Prolonged QT Abnormal ECG When compared with ECG of 23-Dec-2024 18:36, No significant change Confirmed by Adonay Walker ([id number]) on 12/26/2024 10:26:51 PM Referred By: REFERRED SELF Confirmed By: Adonay Walker
--- NOTE | 2024-12-26 22:28 | Electrocardiogram Report ---
Test Reason : Blood Pressure : */* mmHG Vent. Rate : 78 BPM Atrial Rate : 78 BPM P-R Int : 102 ms QRS Dur : 90 ms QT Int : 444 ms P-R-T Axes : 76 37 133 degrees QTcB Int : 506 ms Sinus rhythm with short [place] Premature atrial complexes Left ventricular hypertrophy with repolarization abnormality Prolonged QT Abnormal ECG When compared with ECG of 23-Dec-2024 19:06, No significant change Confirmed by Adonay Walker ([id number]) on 12/26/2024 10:27:47 PM Referred By: REFERRED SELF Confirmed By: Adonay Walker
--- NOTE | 2024-12-26 22:30 | Electrocardiogram Report ---
Test Reason : Blood Pressure : */* mmHG Vent. Rate : 63 BPM Atrial Rate : 63 BPM P-R Int : 140 ms QRS Dur : 90 ms QT Int : 510 ms P-R-T Axes : 75 24 188 degrees QTcB Int : 523 ms Normal sinus rhythm Possible Left atrial enlargement Left ventricular hypertrophy with repolarization abnormality ( Sokolow-Green ) Cannot rule out Septal infarct , age undetermined Prolonged QT Abnormal ECG When compared with ECG of 24-Dec-2024 10:42, Premature atrial complexes are no longer Present Confirmed by Adonay Walker ([id number]) on 12/26/2024 10:30:14 PM Referred By: REFERRED SELF Confirmed By: Adonay Walker
== END 2024-12-25 17:44 | disposition home or self-care (01) ==
LOC: ED 18:20 → SUATTDRO 12-24 01:05 → INTOOBSV 12-24 01:05 → EDINP 12-24 01:05 → 2S 12-24 04:06

== ENCOUNTER 2024-12-27 00:04 | Observation (INO) ==
--- NOTE | 2024-12-27 00:10 | Emergency Department Note ---
Impression & Plan Nausea vomiting and diarrhea, Acute UTI, Elevated troponin, Acute dehydration ED Provider Note NAME: KEN GARCIA AGE: 79 SEX: F : 1945 ARRIVES VIA: Ambulance INFORMANT: Patient, ED PROVIDER(S): Raheel Olson MD CHIEF COMPLAINT: Nausea vomiting MEDICAL DECISION MAKING: Patient presents with the above in the setting of taking p.o. antibiotics for recent UTI. IV was established and blood work was obtained. Patient did have elevated troponins during her most recent inpatient stay so EKG troponin ordered although patient currently denies any chest pain or shortness of breath. IV fluids and IV Zofran ordered. Patient's blood work shows a white count of 13 with a normal hemoglobin and platelet count. The patient's kidney function is unremarkable. Initial troponin of 95 not much change from December 23. Repeat was ordered at about 2 hours postinitial. Patient did have recurrence of her nausea and vomiting was given IV Reglan 5 mg. Patient subsequently later upon reassessment had associated vomiting and diarrhea. The patient was ordered IV Zofran and IV fluids 500 cc bolus in addition to the initial liter she received. Given the patient's recurrence of symptoms I did speak the on-call hospitalist and patient was admitted by Dr. Alejandro. Discussion w/ other healthcare providers: Dr. Bright inpatient medicine service Prior /Outside records reviewed: I did review part of a cardiology consultation from Dr. Walker from December 25 of note the patient did have elevated troponins during most recent inpatient stay did have cardiology consultation echocardiogram. Was thought that patient likely does have demand ischemia in the setting of LVH and hypertrophic cardiomyopathy is asymptomatic from a cardiology standpoint with regard to the LVOT obstruction and possible hypertrophic cardiomyopathy. I reviewed [facility] discharge summary from December 25, 2024. Patient was admitted due to concerns for admitted for fall generalized deconditioning acute metabolic encephalopathy due to acute E. coli UTI did receive IV Rocephin and was given cefuroxime 500 p.o. every 12 for several additional days. I did review part of a urine culture from December 24 which did show E. coli sensitive to cephalosporins. Differential diagnosis: Gastroenteritis, food borne illness, infection, appendicitis, diverticulitis, inflammatory bowel disease, obstruction among others were considered. Diagnostics, as interpreted by me: ECG: Sinus with sinus arrhythmia, rate of 83, normal MD QRS prolonged QTc, normal axis, ST depressions in the lateral and inferior leads. Q wave noted anteriorly. No significant changes noted from December 25, 2024 Cardiac monitoring: An order was placed for continuous cardiac monitoring. The monitor shows a rate of 85 with sinus rhythm. Patient was placed on pulse oximetry Medical decision rules: None Imaging studies: [I informally interpreted the patient's chest x-ray does not show obvious pneumonia with formal report to follow.] HPI: Patient presents due to concern for nausea and vomiting. Patient reports that she believes it is related to the antibiotic she is taking. Patient did have a recent admission for UTI related symptoms and was discharged home on antibiotics. Patient denies any fevers or cough no chest pain or shortness of breath. Patient did not take anything for symptoms at home. Patient states that she was admitted for 2 days and discharged yesterday. patient states that she did try to eat some toast yesterday. Patient states that she did not take her morning dose yesterday but took it this evening and had another episode of vomiting which in turn caused her to call EMS to bring her in today. Patient does live by herself with a dog. With regard to the patient's UTI the patient states that she does not experience acute symptoms no dysuria or frequency no low back pain. PAST MEDICAL HISTORY: See Below PAST SURGICAL HISTORY: See Below SOCIAL HISTORY: See Below HOME MEDICATIONS: See Below ALLERGIES: See Below VITALS: See Below PHYSICAL EXAMINATION: GENERAL: NAD, non-toxic. EYE EXAM: Normal conjunctiva. PERRL, no anisocoria and EOM's grossly intact w/o pain. OROPHARYNX: Moist mucus membranes, grossly normal dentition. NECK: Trachea midline, no stridor. LUNGS: Clear to auscultation. Normal chest wall mechanics. HEART: NSR, no MRG. ABDOMEN: Abdomen soft, non-tender, no masses, no rebound or guarding. BACK: No CVA TTP. SKIN: No rashes and no bruising. UPPER EXTREMITIES: Upper extremities are grossly normal. LOWER EXTREMITIES: Grossly normal, no edema. NEURO EXAM: Awake and alert, follows commands, no obvious facial asymmetry, normal speech, moves all 4 extremities. Past Med/Surg History Problem List (Updated 12/27/24 @ 05:30 by Raheel Olson MD) Acute dehydration (Acute) Elevated troponin (Acute) Acute UTI (Acute) Nausea vomiting and diarrhea (Acute) Nausea and vomiting E. coli UTI Mitral regurgitation Acquired left ventricular outflow tract obstruction Elevated troponin Hypertrophic cardiomyopathy ASHVIN (acute kidney injury) AAA (abdominal aortic aneurysm) (Acute) Hypokalemia (Acute) Abnormal EKG (Acute) Anxiety (Acute) Non-ST elevation RI (NSTEMI) (Acute) Abdominal bruit Hematoma Moderate aortic stenosis Lower extremity edema Postmenopausal Prediabetes Constipation GERD (gastroesophageal reflux disease) Encounter for interrogation of cardiac recorder Weight loss Implantable loop recorder present Tremor Headache Medication management History of colon polyps Family history of colon cancer History of TIA (transient ischemic attack) Anemia Complex laceration of scalp (Acute) Collapse (Acute) Closed head injury (Acute) Near syncope (Acute) Scalp laceration Fall Carotid stenosis, left Fronto-temporal dementia Hypoxia (Acute) COPD (chronic obstructive pulmonary disease) Myelopathy Executive function deficit Ataxia Anemia Lumbosacral radiculopathy Peripheral neuropathy Carotid stenosis Neurologic gait disorder Heel pain Balance disorder Peroneal tendinitis, left leg Bright red blood per rectum Melena Encounter for pre-operative examination Dizziness Cerebral atrophy Basilar artery stenosis TIA (transient ischemic attack) (Acute) Pain of left calf Acromioclavicular joint arthritis Patellar bursitis of left knee SNHL (sensorineural hearing loss) Otalgia, right ear Hypothyroidism (Acute) Chronic reflux esophagitis (Acute) Hypertension (Acute) Joint pain in the shoulder/clavicle region (Acute) Reflex incontinence (Acute) Toxic multinodular goiter (Acute) 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 Sotomayor and Dr. 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 Sotomayor and Dr. Hayden monitoring Pulmonary embolism hx 2019 > related to an injury > remains on Eliquis Medical History Postmenopausal HRT (hormone replacement therapy) DVT (deep venous thrombosis) left leg > hx of 2019 > related to an injury > remains on Eliquis Transient ischemic attack (TIA) 2020--per pt reason for eliquis--follows with PCP VAIN (vaginal intraepithelial neoplasia) remote, 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 Poor historian Laryngopharyngeal reflux Cardiac murmur follows with Dr. Henry Former smoker Hiatal hernia Internal hemorrhoids Tubular adenoma of colon Osteoarthritis Hypothyroidism Hearing deficit L EAR Chronic obstructive pulmonary disease rare res inh use per pt Lung abscess (12/17/13) pt unaware Surgical History History of loop recorder has at present > seeing cardio this week for check up (07/02/23) S/P excision of lipoma (08/08/19) Bilateral Arm Lipomas Excision (x7)(Bilateral) Dr. Asencio 08-08-19 History of esophagogastroduodenoscopy (EGD) w/ dilation History of oral surgery History of total abdominal hysterectomy and bilateral salpingo-oophorectomy History of tubal ligation H/O removal of cyst R ARM History of breast biopsy R BREAST-BENIGN History of dilatation and curettage History of arthroscopy left knee History of colonoscopy last 09/09/20 @ [facility] History of cholecystectomy History of tooth extraction History of tonsillectomy History of thyroidectomy, subtotal L SIDE History of eye surgery Left History of cataract surgery RT/LT Family History Grandmother Family history of diabetes mellitus MATERNAL Mother Family hx of colon cancer Colorectal cancer Father Coronary heart disease Daughter Slow to wake up after anesthesia Denies family history of Ovarian cancer Prostate cancer Myocardial infarction Breast cancer Social History Smoking Status: Former smoker Tobacco Type: Cigarettes Age Started Using Tobacco: 16; Age Quit Using Tobacco: 52; packs per day: 1; Second Hand Exposure: No; Do You Dip or Chew Tobacco: No; Hx Alcohol Use: No Hx Substance Use: No Preferred Language: Bel[place]an Communication Ability: Effective Financial Assistant Required: No Beliefs That Will Affect Care: None marital status: Current Living Situation: Alone current occupational status: retired Feels Safe at Home: Yes Safety Concerns: Feels Safe At This Time Dental Care, Regularly: Yes Physical Activity Frequency: Does not Exercise Seatbelt Use: always Sunscreen Use: No Assistive Devices: None Allergies Allergies Allergy/AdvReac Type Severity Reaction Status Date / Time adhesive tape Allergy Mild Rash Verified 12/23/24 22:38 levofloxacin AdvReac Intermediate NERVOUS Verified 12/23/24 22:38 amoxicillin AdvReac Mild YEAST Verified 12/23/24 22:38 INFECTIONS Home Meds Home Medications Medication Instructions Recorded Confirmed Lactobacil.acidophilus-Bifido.animalis 1 cap PO QAM ##0 11/08/16 12/27/24 5 billion cell sprinkle capsule (Probiotic) scifznk-ztstmpbuktmzu-hhzbyknz 250 1 tab PO Q6H PRN Pain 07/02/23 12/27/24 mg-250 mg-65 mg tablet (Excedrin Extra Strength) biotin 5,000 mcg chewable tablet 5,000 mcg PO DAILY 10/15/24 12/27/24 lactobacillus combination no.4 3 3,000 mmu cells PO DAILY 10/15/24 12/27/24 billion cell capsule (Probiotic) alprazolam 1 mg tablet 1 mg PO HS PRN anxiety 12/18/24 12/27/24 brexpiprazole 1 mg tablet 1 mg PO DAILY 12/18/24 12/27/24 bupropion HCl 300 mg 24 hr tablet, 300 mg PO QAM 12/18/24 12/27/24 extended release topiramate 50 mg capsule,extended 50 mg PO DAILY 12/18/24 12/27/24 release 24 hr albuterol sulfate 90 mcg/actuation 1 - 2 puff inhalation .Q4-6HR PRN 12/23/24 12/27/24 aerosol inhaler SOB multivitamin with minerals 1 tab PO DAILY 12/23/24 12/27/24 Previous Rx's Medication Instructions Recorded fluticasone propionate 50 2 spray SANTY DAILY PRN Nasal 07/12/23 mcg/actuation nasal Congestion #16 grams spray,suspension (Flonase Allergy Relief) venlafaxine 75 mg capsule,extended 75 mg PO HS #90 caps 01/04/24 release 24 hr midodrine 2.5 mg tablet 2.5 mg PO BID #180 tabs 01/29/24 apixaban 5 mg tablet (Eliquis) 5 mg PO BID #180 tabs 01/30/24 atorvastatin 80 mg tablet 80 mg PO QAM #90 tabs 01/30/24 venlafaxine 150 mg 150 mg PO QAM #90 caps 04/03/24 capsule,extended release 24 hr levothyroxine 50 mcg tablet 50 mcg PO QAM #90 tabs 08/20/24 (Synthroid) cefuroxime axetil 500 mg tablet 500 mg PO Q12H 2 days #4 tabs 12/25/24 Results & Data (ED) Vital Signs Vital Signs - 24 hr 12/27/24 00:09 12/27/24 00:14 12/27/24 00:33 Temperature 36.5 C Temperature Source Oral Pulse Rate 86 79 Pulse Rate [Left Apical] Pulse Rhythm [Left Apical] Pulse Strength [Left Apical] Respiratory Rate 18 Respiratory Effort / Characteristics Non-Labored Respiratory Depth Normal Respiratory Pattern Blood Pressure 138/102 H Blood Pressure [Left Arm] Blood Pressure Mean 114 Blood Pressure Mean [Left Arm] Pulse Oximetry 98 96 Oxygen Delivery Method Room Air Room Air Sepsis Recent Fever Within 48 Hours No Sepsis New/Unexplained Change in Mental Status No Sepsis Action Taken by Nursing No Action Required 12/27/24 02:31 12/27/24 03:00 12/27/24 04:00 Temperature Temperature Source Pulse Rate Pulse Rate [Left Apical] 93 H 101 H 85 Pulse Rhythm [Left Apical] Regular Pulse Strength [Left Apical] Normal Respiratory Rate 16 22 22 Respiratory Effort / Characteristics Non-Labored Spontaneous Respiratory Depth Respiratory Pattern Regular Gasping Blood Pressure Blood Pressure [Left Arm] 150/68 H 118/59 L 128/58 L Blood Pressure Mean Blood Pressure Mean [Left Arm] 95 78 81 Pulse Oximetry 96 97 98 Oxygen Delivery Method Room Air Room Air Room Air Sepsis Recent Fever Within 48 Hours Sepsis New/Unexplained Change in Mental Status Sepsis Action Taken by Nursing 12/27/24 04:25 Temperature Temperature Source Pulse Rate 91 H Pulse Rate [Left Apical] Pulse Rhythm [Left Apical] Pulse Strength [Left Apical] Respiratory Rate Respiratory Effort / Characteristics Respiratory Depth Respiratory Pattern Blood Pressure Blood Pressure [Left Arm] Blood Pressure Mean Blood Pressure Mean [Left Arm] Pulse Oximetry Oxygen Delivery Method Sepsis Recent Fever Within 48 Hours Sepsis New/Unexplained Change in Mental Status Sepsis Action Taken by Longterm Medications Current Medication List: was personally reviewed by me Laboratory Data Attestation: I reviewed the patient's lab results. 12/27/24 00:20 12/27/24 00:20 Lab Results 12/27/24 12/27/24 Range/Units 00:20 02:26 WBC 13.73 H (4.8-10.8) K/ul RBC 5.16 (4.20-5.40) M/uL Hgb 13.0 (12.0-16.0) g/dl Hct 41.6 (37.0-47.0) % MCV 80.6 (80.0-100.0) fL MCH 25.2 (25.0-34.0) pg MCHC 31.3 L (32.0-36.0) g/dL RDW Std Deviation 54.4 H (36.4-46.3) fL RDW Coeff of Azam 19.9 H (11.5-14.5) % Plt Count 287 (130-400) K/uL MPV 10.5 (9.4-12.4) fL Immature Gran % (Auto) 0.4 % Neut % (Auto) 80.4 % Lymph % (Auto) 8.1 % Fountain % (Auto) 10.2 % Eos % (Auto) 0.7 % Baso % (Auto) 0.2 % Neut # (Auto) 11.04 H (1.40-6.50) K/uL Lymph # (Auto) 1.11 L (1.20-3.40) K/uL Fountain # (Auto) 1.40 H (0.11-0.59) K/uL Eos # (Auto) 0.10 (0.00-0.50) K/uL Baso # (Auto) 0.03 (0.00-0.20) K/uL Immature Gran # (Auto) 0.05 (0.01-0.20) K/uL Sodium 141 (136-145) mmol/L Potassium 3.5 (3.5-5.1) mmol/L Chloride 111 H (98-107) mmol/L Carbon Dioxide 22 (21-32) mmol/L Anion Gap 8 (3-11) BUN 23 (6-23) mg/dl Creatinine 0.90 (0.6-1.2) mg/dl Est Cr Clr Drug Dosing 49.0 ml/min eGFR 65.84 BUN/Creatinine Ratio 25.6 H (10-20) Glucose 129 H (70-99(Fasting)) mg/dl Calcium 9.6 (8.6-10.3) mg/dl Total Bilirubin 0.5 (0.2-1.0) mg/dl AST 25 (13-39) U/L ALT 20 (7-52) U/L Alkaline Phosphatase 92 (34-104) U/L Troponin I High Sens 95.1 H* 89.0 H* (0-14) pg/ml Total Protein 6.3 (6.0-8.3) gm/dl Albumin 3.6 (3.4-5.0) gm/dl Globulin 2.7 (2.5-4.0) gm/dl Albumin/Globulin Ratio 1.3 (0.9-2) TSH 7.116 H (0.300-4.500) uIu/ml Free T4 0.77 (0.61-1.60) ng/dl Administered Medications Discontinued Medications Sodium Chloride (Nss) 1,000 mls @ 999 mls/hr IV .Q1H1M LEXX Stop: 12/27/24 01:15 Last Infusion: 12/27/24 01:53 Dose: Infused Documented By: Admin: 12/27/24 00:25 Dose: 999 mls/hr Documented By: JOSE Famotidine (Pepcid 20mg Iv Push) 20 mg in 5 mls @ 2.5 mls/min IV NOW STA Stop: 12/27/24 00:14 Last Admin: 12/27/24 00:24 Dose: 2.5 mls/min Documented By: JOSE Ceftriaxone Sodium (Rocephin) 2,000 mg in 50 mls @ 100 mls/hr IV NOW STA Stop: 12/27/24 01:02 Last Infusion: 12/27/24 01:52 Dose: Infused Documented By: Admin: 12/27/24 00:43 Dose: 100 mls/hr Documented By: JOSE Sodium Chloride (Nss) 500 mls @ 999 mls/hr IV .Q31M ONE Stop: 12/27/24 03:47 Last Infusion: 12/27/24 04:02 Dose: Infused Documented By: Admin: 12/27/24 03:27 Dose: 999 mls/hr Documented By: HARSH Metoclopramide HCl (Metoclopramide Hcl Inj 5 Mg/Ml 2 Ml Vial) 5 mg IV ONE ONE Stop: 12/27/24 01:55 Last Admin: 12/27/24 02:01 Dose: 5 mg Documented By: JOSE Ondansetron HCl (Ondansetron Inj 2 Mg/Ml 2 Ml Vial) 4 mg IV NOW STA Stop: 12/27/24 03:18 Last Admin: 12/27/24 03:25 Dose: 4 mg Documented By: LAF Imaging Data Radiologist's Impression: Chest X-Ray 12/27/24 00:14 EXAM: XR chest 1V portable CLINICAL HISTORY: weakness TECHNIQUE: An X-ray image of the chest is obtained in AP projection. COMPARISON: X-ray 12/23/24 FINDINGS: Pulmonary Parenchyma: Unchanged diffuse interstitial thickening with thin fibrotic/atelectatic bands at lower zones. No evidence of consolidation, collapse, or focal opacities. No pulmonary nodules identified. No evidence of pleural effusion or pleural thickening. Heart and Mediastinum: Heart size and shape are normal. No mediastinal widening or masses. No hilar or mediastinal lymphadenopathy. Aortic arch calcified atheromatous plaque (unchanged). Loop recorder is noted Bony Thorax: Bony thorax appears intact without fractures or deformities. Soft Tissues: Soft tissues overlying the chest wall are unremarkable. IMPRESSION: 1. No evidence of consolidation or pleural effusion. 2. Unchanged diffuse interstitial thickening with thin fibrotic/atelectatic bands at lower zones. 3. No interval changes as compared to the previous study. Electronically signed by Joss Pedersen 12-27-2024 01:31 AM Discharge Plan Visit Data Chief Complaint: Vomiting Stated Complaint: VOMITING AFTER TAKING MEDS FOR A UTI ED Provider: Raheel Olson Discharge Problem: Nausea vomiting and diarrhea, Acute UTI, Elevated troponin, Acute dehydration Patient Disposition: Admitted As Inpatient Condition: Fair Discharge Instructions Interventions: ED Discharge Assessment Last Done: 12/27/24 05:18
[2024-12-27] MEDS: FAMOTIDINE 20MG IV PUSH 20 MG/5 ML SYR IV STA (00:24)
[2024-12-27] MEDS: SODIUM CHLORIDE 0.9% 1,000 ML IV SCH (00:25)
[2024-12-27 00:36] LABS: Hematocrit (blood only) 41.6 % (37.0-47.0); Hemoglobin 13.0 g/dl (12.0-16.0); Immature Granulocytes # (auto) 0.05 K/uL (0.01-0.20); Immature Granulocytes % (auto) 0.4 %; Mean Corpuscular Hemoglobin 25.2 pg (25.0-34.0); Mean Corpuscular Volume 80.6 fL (80.0-100.0); Platelet Count 287 K/uL (130-400); RDW Standard Deviation 54.4 fL (36.4-46.3); Red Blood Count 5.16 M/uL (4.20-5.40); White Blood Count 13.73 K/ul (4.8-10.8)
[2024-12-27] MEDS: cefTRIAXone SODIUM 2,000 MG/50 ML BAG IV STA (00:43)
[2024-12-27 00:55] LABS: Alanine Aminotransferase 20.0 U/L (7-52); Albumin Globulin Ratio 1.3 (0.9-2); Alkaline Phosphatase 92.0 U/L (34-104); Anion Gap 8.0 (3-11); Bilirubin,Total 0.5 mg/dl (0.2-1.0); Blood Urea Nitrogen 23.0 mg/dl (6-23); Calcium 9.6 mg/dl (8.6-10.3); Carbon Dioxide 22.0 mmol/L (21-32); Chloride 111.0 mmol/L (98-107); Creatinine Clr Calc Pharmacy 49.0 ml/min; Globulin 2.7 gm/dl (2.5-4.0); Glucose 129.0 mg/dl (70-99(Fasting)); Potassium 3.5 mmol/L (3.5-5.1); Sodium 141.0 mmol/L (136-145); Total Protein 6.3 gm/dl (6.0-8.3)
[2024-12-27 01:11] LABS: Thyroid Stimulating Hormone 7.116 uIu/ml (0.300-4.500)
--- NOTE | 2024-12-27 01:31 | XRay Report ---
EXAM: XR chest 1V portable CLINICAL HISTORY: weakness TECHNIQUE: An X-ray image of the chest is obtained in AP projection. COMPARISON: X-ray 12/23/24 FINDINGS: Pulmonary Parenchyma: Unchanged diffuse interstitial thickening with thin fibrotic/atelectatic bands at lower zones. No evidence of consolidation, collapse, or focal opacities. No pulmonary nodules identified. No evidence of pleural effusion or pleural thickening. Heart and Mediastinum: Heart size and shape are normal. No mediastinal widening or masses. No hilar or mediastinal lymphadenopathy. Aortic arch calcified atheromatous plaque (unchanged). Loop recorder is noted Bony Thorax: Bony thorax appears intact without fractures or deformities. Soft Tissues: Soft tissues overlying the chest wall are unremarkable. IMPRESSION: 1. No evidence of consolidation or pleural effusion. 2. Unchanged diffuse interstitial thickening with thin fibrotic/atelectatic bands at lower zones. 3. No interval changes as compared to the previous study. Electronically signed by Joss Pedersen 12-27-2024 01:31 AM
[2024-12-27] MEDS: METOCLOPRAMIDE HCL INJ 5 MG/ML 2 ML VIAL IV ONE (02:01)
[2024-12-27] MEDS: ONDANSETRON INJ 2 MG/ML 2 ML VIAL IV STA (03:25)
[2024-12-27] MEDS: SODIUM CHLORIDE 0.9% 500 ML IV ONE (03:27)
--- NOTE | 2024-12-27 04:15 | History & Physical Report ---
Date of Service December 27, 2024 Assessment & Plan (1) E. coli UTI: (2) Nausea and vomiting: (3) Acquired left ventricular outflow tract obstruction: (4) Hypertrophic cardiomyopathy: (5) Fronto-temporal dementia: (6) Esophageal dysphagia: (7) Pulmonary embolism: (8) Non-ST elevation [place] (NSTEMI): Plan The patient is a 79-year-old female with past medical history including hypertrophic cardiomyopathy, left ventricular outflow tract obstruction, mitral regurgitation, AAA, moderate aortic stenosis, GERD, implantable loop recorder, history of TIA, frontotemporal dementia, COPD, executive function deficit, peripheral neuropathy, balance disorder, SNHL, chronic reflux esophagitis, esophageal dysphagia, generalized anxiety disorder, depression, and history of pulmonary embolism for which she is on Eliquis. She was most recently mated to [facility] from 12/24-12/25/2024, where she was diagnosed with an E. coli UTI that was treated with 1 day of ceftriaxone IV, and then discharged on 2 days of cefuroxime. She was also diagnosed with an NSTEMI, which did not require any i ntervention other than medical management. She developed significant nausea and vomiting upon taking cefuroxime on 12/26, and due to its persistence, presented to the ED for assessment. In the emergency department she was given Zofran IV, then a dose of Reglan IV, and then Zofran IV again. Patient had a large bowel movement at that point, and since that time has had frequent loose stools. She is referred for evaluation for admission. E. coli UTI- Received first dose of ceftriaxone on 12/25/2024, and tolerated 1 day of cefuroxime on 12/26/2024. Will place her on ceftriaxone 2 g IV daily NSS + KCl 20 mill equivalents at 100 mL/h x 1 L Nausea and vomiting/esophageal dysphagia/Schatzki ring- Patient had symptoms develop when taking cefuroxime on an empty stomach. Will place on cardiac diet While in the emergency department patient was given a dose of Zofran followed by Reglan and then followed by Zofran again by the ED. Patient had a large BM, and has been having slow leakage of stool since that time. Zofran 4 mg IV every 6 hours as needed Placed on pantoprazole 40 mg IV daily NSTEMI/LVOTO- Troponin on 12/23 was 97.3 with follow-up 94.2. Troponin today was initially 95.1, with follow-up 89.0 Patient was seen by cardiology last visit, and no aggressive intervention need to be done Echocardiogram on 11/27/2024 showed ejection fraction greater than 70% with left ventricular outflow tract obstruction worse compared to 02/05/2024 History of pulmonary embolism/DVT- Continue apixaban 5 mg p.o. twice daily Generalized anxiety disorder- Continue alprazolam, brexpiprazole, bupropion, topiramate and venlafaxine History of Present Illness Chief Complaint: The patient presented to the emergency department with report of nausea and vomiting that occurred after she took cefuroxime for UTI that was diagnosed during admission from 12/24-12/25/2024. During that admission, patient was found to have an E. coli UTI which was treated with 1 day of ceftriaxone IV, and was then discharged on cefuroxime however milligrams p.o. every 12 hours x 2 days. Unfortunately she developed significant nausea and vomiting yesterday while taking cefuroxime on empty stomach. She presents to the emergency department with inability To control nausea or vomiting. Primary Care Provider: Pravin Drew MD The patient is a 79-year-old female with past medical history including hypertrophic cardiomyopathy, left ventricular outflow tract obstruction, mitral regurgitation, AAA, moderate aortic stenosis, GERD, implantable loop recorder, history of TIA, frontotemporal dementia, COPD, executive function deficit, peripheral neuropathy, balance disorder, SNHL, chronic reflux esophagitis, esophageal dysphagia, generalized anxiety disorder, depression, and history of pulmonary embolism for which she is on Eliquis. She was most recently mated to [facility] from 12/24-12/25/2024, where she was diagnosed with an E. coli UTI that was treated with 1 day of ceftriaxone IV, and then discharged on 2 days of cefuroxime. She was also diagnosed with an NSTEMI, which did not require any intervention other than medical management. She developed significant nausea and vomiting upon taking cefuroxime on 12/26, and due to its persistence, presented to the ED for assessment. In the emergency department she was given Zofran IV, then a dose of Reglan IV, and then Zofran IV again. Patient had a large bowel movement at that point, and since that time has had frequent loose stools. She is referred for evaluation for admission. Allergies Allergy/AdvReac Type Severity Reaction Status Date / Time adhesive tape Allergy Mild Rash Verified 12/23/24 22:38 levofloxacin AdvReac Intermediate NERVOUS Verified 12/23/24 22:38 amoxicillin AdvReac Mild YEAST Verified 12/23/24 22:38 INFECTIONS Home Medications Medication Instructions Recorded Confirmed Type Lactobacil.acidophilus-Bifido.animalis 1 cap PO QAM ##0 11/08/16 12/27/24 History 5 billion cell sprinkle capsule (Probiotic) zgyfaiq-lekiqncgsccql-ygzxuhys 250 1 tab PO Q6H PRN Pain 07/02/23 12/27/24 History mg-250 mg-65 mg tablet (Excedrin Extra Strength) fluticasone propionate 50 2 spray SANTY DAILY PRN Nasal 07/12/23 12/27/24 Rx mcg/actuation nasal Congestion #16 grams spray,suspension (Flonase Allergy Relief) venlafaxine 75 mg capsule,extended 75 mg PO HS #90 caps 01/04/24 12/27/24 Rx release 24 hr midodrine 2.5 mg tablet 2.5 mg PO BID #180 tabs 01/29/24 12/27/24 Rx apixaban 5 mg tablet (Eliquis) 5 mg PO BID #180 tabs 01/30/24 12/27/24 Rx atorvastatin 80 mg tablet 80 mg PO QAM #90 tabs 01/30/24 12/27/24 Rx venlafaxine 150 mg 150 mg PO QAM #90 caps 04/03/24 12/27/24 Rx capsule,extended release 24 hr levothyroxine 50 mcg tablet 50 mcg PO QAM #90 tabs 08/20/24 12/27/24 Rx (Synthroid) biotin 5,000 mcg chewable tablet 5,000 mcg PO DAILY 10/15/24 12/27/24 History lactobacillus combination no.4 3 3,000 mmu cells PO DAILY 10/15/24 12/27/24 History billion cell capsule (Probiotic) alprazolam 1 mg tablet 1 mg PO HS PRN anxiety 12/18/24 12/27/24 History brexpiprazole 1 mg tablet 1 mg PO DAILY 12/18/24 12/27/24 History bupropion HCl 300 mg 24 hr tablet, 300 mg PO QAM 12/18/24 12/27/24 History extended release topiramate 50 mg capsule,extended 50 mg PO DAILY 12/18/24 12/27/24 History release 24 hr albuterol sulfate 90 mcg/actuation 1 - 2 puff inhalation .Q4-6HR PRN 12/23/24 12/27/24 History aerosol inhaler SOB multivitamin with minerals 1 tab PO DAILY 12/23/24 12/27/24 History cefuroxime axetil 500 mg tablet 500 mg PO Q12H 2 days #4 tabs 12/25/24 12/27/24 Rx Past Med/Surg History Problem List (Updated 12/27/24 @ 04:17 by Larry Cueto MD) Nausea and vomiting E. coli UTI Mitral regurgitation Acquired left ventricular outflow tract obstruction Elevated troponin Hypertrophic cardiomyopathy ASHVIN (acute kidney injury) AAA (abdominal aortic aneurysm) (Acute) Hypokalemia (Acute) Abnormal EKG (Acute) Anxiety (Acute) Non-ST elevation [place] (NSTEMI) (Acute) Abdominal bruit Hematoma Moderate aortic stenosis Lower extremity edema Postmenopausal Prediabetes Constipation GERD (gastroesophageal reflux disease) Encounter for interrogation of cardiac recorder Weight loss Implantable loop recorder present Tremor Headache Medication management History of colon polyps Family history of colon cancer History of TIA (transient ischemic attack) Anemia Complex laceration of scalp (Acute) Collapse (Acute) Closed head injury (Acute) Near syncope (Acute) Scalp laceration Fall Carotid stenosis, left Fronto-temporal dementia Hypoxia (Acute) COPD (chronic obstructive pulmonary disease) Myelopathy Executive function deficit Ataxia Anemia Lumbosacral radiculopathy Peripheral neuropathy Carotid stenosis Neurologic gait disorder Heel pain Balance disorder Peroneal tendinitis, left leg Bright red blood per rectum Melena Encounter for pre-operative examination Dizziness Cerebral atrophy Basilar artery stenosis TIA (transient ischemic attack) (Acute) Pain of left calf Acromioclavicular joint arthritis Patellar bursitis of left knee SNHL (sensorineural hearing loss) Otalgia, right ear Hypothyroidism (Acute) Chronic reflux esophagitis (Acute) Hypertension (Acute) Joint pain in the shoulder/clavicle region (Acute) Reflex incontinence (Acute) Toxic multinodular goiter (Acute) 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 Sotomayor and Dr. 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 Sotomayor and Dr. Hayden monitoring Pulmonary embolism hx of 2019 > related to an injury > remains on Eliquis Medical History Postmenopausal HRT (hormone replacement therapy) DVT (deep venous thrombosis) left leg > hx of 2019 > related to an injury > remains on Eliquis Transient ischemic attack (TIA) 2020--per pt reason for eliquis--follows with PCP VAIN (vaginal intraepithelial neoplasia) remote, 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 Poor historian Laryngopharyngeal reflux Cardiac murmur follows with Dr. Henry Former smoker Hiatal hernia Internal hemorrhoids Tubular adenoma of colon Osteoarthritis Hypothyroidism Hearing deficit L EAR Chronic obstructive pulmonary disease rare res inh use per pt Lung abscess (12/17/13) pt unaware Surgical History History of loop recorder has at present > seeing cardio this week for check up (07/02/23) S/P excision of lipoma (08/08/19) Bilateral Arm Lipomas Excision (x7)(Bilateral) Dr. Asencio 08-08-19 History of esophagogastroduodenoscopy (EGD) w/ dilation History of oral surgery History of total abdominal hysterectomy and bilateral salpingo-oophorectomy History of tubal ligation H/O removal of cyst R ARM History of breast biopsy R BREAST-BENIGN History of dilatation and curettage History of arthroscopy left knee History of colonoscopy last 09/09/20 @ [facility] History of cholecystectomy History of tooth extraction History of tonsillectomy History of thyroidectomy, subtotal L SIDE History of eye surgery Left History of cataract surgery RT/LT Family History Grandmother Family history of diabetes mellitus MATERNAL Mother Family hx of colon cancer Colorectal cancer Father Coronary heart disease Daughter Slow to wake up after anesthesia Denies family history of Ovarian cancer Prostate cancer Myocardial infarction Breast cancer Social History Smoking Status: Never smoker Tobacco Type: Cigarettes Age Started Using Tobacco: 16; Age Quit Using Tobacco: 52; packs per day: 1; Second Hand Exposure: No; Do You Dip or Chew Tobacco: No; Hx Alcohol Use: No Hx Substance Use: No Preferred Language: Tamazight Communication Ability: Effective Chemical Process Analyst Required: No Beliefs That Will Affect Care: None marital status: Current Living Situation: Alone current occupational status: retired Feels Safe at Home: Yes Dental Care, Regularly: Yes Physical Activity Frequency: Does not Exercise Seatbelt Use: always Sunscreen Use: No Assistive Devices: None Review of Systems Review of Systems: The patient denies chest pain, palpitations, shortness of breath, dyspnea on exertion, cough, lower extremity swelling, sore throat, fevers, chills, sweats, abdominal pain, pelvic pain, blood in urine or stool, dysuria, urinary frequency or urgency, lightheadedness, dizziness, headache, memory loss, loss of consciousness, rash, abnormal bruising or bleeding, imbalance, focal weakness, numbness or tingling in arms or legs, generalized arthralgias or myalgias, back or neck pain, or night sweats. The review of systems is otherwise negative other than for that already noted above, and at least 10 systems have been reviewed. Physical Exam Physical Exam: The patient is awake, alert and oriented 3, well developed and well nourished, normocephalic and atraumatic, lying in bed and in no acute distress. HEENT--PERRL, EOMI, mucous membranes and oropharynx mildly dry. Neck--supple. No JVD. No bruits. Thyroid normal, trachea midline, no adenopathy. Heart--normal S1 and S2. No murmurs, rubs or gallops. Lungs--clear bilaterally, no respiratory distress, no accessory muscle use. Abdomen--normal bowel sounds and soft. Nontender. Nondistended, no hernias or masses, no organomegaly. Extremities--no cyanosis or clubbing. No edema. There are good distal pulses b/l. Dermatologic--normal skin turgor, normal color, no abnormal lymph nodes, no rash. Neurologic--cranial nerves II through XII grossly intact. Rheumatologic--normal range of motion. Psychiatric--normal affect. Results & Data Results & Data Vital Signs (Past 12 Hours) Vital Signs Temp Pulse Pulse Resp BP BP Pulse Ox 12/27/24 04:00 85 22 128/58 L 98 12/27/24 03:00 101 H 22 118/59 L 97 12/27/24 02:31 93 H 16 150/68 H 96 12/27/24 00:33 79 12/27/24 00:14 96 12/27/24 00:09 36.5 C 86 18 138/102 H 98 O2 Del Method 12/27/24 04:00 Room Air 12/27/24 03:00 Room Air 12/27/24 02:31 Room Air 12/27/24 00:33 12/27/24 00:14 Room Air 12/27/24 00:09 Room Air Laboratory Results Laboratory Results WBC 13.73 K/ul (4.8-10.8) H 12/27/24 00:20 RBC 5.16 M/uL (4.20-5.40) 12/27/24 00:20 Hgb 13.0 g/dl (12.0-16.0) 12/27/24 00:20 Hct 41.6 % (37.0-47.0) 12/27/24 00:20 MCV 80.6 fL (80.0-100.0) 12/27/24 00:20 MCH 25.2 pg (25.0-34.0) 12/27/24 00:20 MCHC 31.3 g/dL (32.0-36.0) L 12/27/24 00:20 RDW Std Deviation 54.4 fL (36.4-46.3) H 12/27/24 00:20 RDW Coeff of Azam 19.9 % (11.5-14.5) H 12/27/24 00:20 Plt Count 287 K/uL (130-400) 12/27/24 00:20 MPV 10.5 fL (9.4-12.4) 12/27/24 00:20 Immature Gran % (Auto) 0.4 % 12/27/24 00:20 Neut % (Auto) 80.4 % 12/27/24 00:20 Lymph % (Auto) 8.1 % 12/27/24 00:20 [place] % (Auto) 10.2 % 12/27/24 00:20 Eos % (Auto) 0.7 % 12/27/24 00:20 Baso % (Auto) 0.2 % 12/27/24 00:20 Neut # (Auto) 11.04 K/uL (1.40-6.50) H 12/27/24 00:20 Lymph # (Auto) 1.11 K/uL (1.20-3.40) L 12/27/24 00:20 [place] # (Auto) 1.40 K/uL (0.11-0.59) H 12/27/24 00:20 Eos # (Auto) 0.10 K/uL (0.00-0.50) 12/27/24 00:20 Baso # (Auto) 0.03 K/uL (0.00-0.20) 12/27/24 00:20 Immature Gran # (Auto) 0.05 K/uL (0.01-0.20) 12/27/24 00:20 Sodium 141 mmol/L (136-145) 12/27/24 00:20 Potassium 3.5 mmol/L (3.5-5.1) 12/27/24 00:20 Chloride 111 mmol/L (98-107) H 12/27/24 00:20 Carbon Dioxide 22 mmol/L (21-32) 12/27/24 00:20 Anion Gap 8 (3-11) 12/27/24 00:20 BUN 23 mg/dl (6-23) 12/27/24 00:20 Creatinine 0.90 mg/dl (0.6-1.2) 12/27/24 00:20 Est Cr Clr Drug Dosing 49.0 ml/min 12/27/24 00:20 eGFR 65.84 12/27/24 00:20 BUN/Creatinine Ratio 25.6 (10-20) H 12/27/24 00:20 Glucose 129 mg/dl (70-99(Fasting)) H 12/27/24 00:20 Calcium 9.6 mg/dl (8.6-10.3) 12/27/24 00:20 Total Bilirubin 0.5 mg/dl (0.2-1.0) 12/27/24 00:20 AST 25 U/L (13-39) 12/27/24 00:20 ALT 20 U/L (7-52) 12/27/24 00:20 Alkaline Phosphatase 92 U/L (34-104) 12/27/24 00:20 Troponin I High Sens 89.0 pg/ml (0-14) H* 12/27/24 02:26 Total Protein 6.3 gm/dl (6.0-8.3) 12/27/24 00:20 Albumin 3.6 gm/dl (3.4-5.0) 12/27/24 00:20 Globulin 2.7 gm/dl (2.5-4.0) 12/27/24 00:20 Albumin/Globulin Ratio 1.3 (0.9-2) 12/27/24 00:20 TSH 7.116 uIu/ml (0.300-4.500) H 12/27/24 00:20 Free T4 0.77 ng/dl (0.61-1.60) 12/27/24 00:20 Impressions Chest X-Ray 12/27/24 00:14 EXAM: XR chest 1V portable CLINICAL HISTORY: weakness TECHNIQUE: An X-ray image of the chest is obtained in AP projection. COMPARISON: X-ray 12/23/24 FINDINGS: Pulmonary Parenchyma: Unchanged diffuse interstitial thickening with thin fibrotic/atelectatic bands at lower zones. No evidence of consolidation, collapse, or focal opacities. No pulmonary nodules identified. No evidence of pleural effusion or pleural thickening. Heart and Mediastinum: Heart size and shape are normal. No mediastinal widening or masses. No hilar or mediastinal lymphadenopathy. Aortic arch calcified atheromatous plaque (unchanged). Loop recorder is noted Bony Thorax: Bony thorax appears intact without fractures or deformities. Soft Tissues: Soft tissues overlying the chest wall are unremarkable. IMPRESSION: 1. No evidence of consolidation or pleural effusion. 2. Unchanged diffuse interstitial thickening with thin fibrotic/atelectatic bands at lower zones. 3. No interval changes as compared to the previous study. Electronically signed by Joss Pedersen 12-27-2024 01:31 AM Code Status & VTE Plan Code Status Full code PG Care Time/CCT Total # of Minutes Spent Total Time Spent with Patient: Total time spent is greater than 50% in coordination of care (as documented) at patient's floor/unit and/or counseling patient: Coding Level of Care Code 47079 INT INP/OBS CARE MIN Diagnoses E. coli UTI N39.0; B96.20 Nausea and vomiting R11.2 Acquired left ventricular outflow tract obstruction I51.89 Hypertrophic cardiomyopathy I42.2 Fronto-temporal dementia G31.09; F02.80 Esophageal dysphagia R13.10 Pulmonary embolism I26.99 Non-ST elevation [place] (NSTEMI) I21.4
[2024-12-27] MEDS: NSS + 20MEQ KCL 20 MEQ/1,000 ML BAG IV SCH (06:10)
[2024-12-27] MEDS ORDERED: ONDANSETRON INJ 2 MG/ML 2 ML VIAL IV PRN (06:25)
[2024-12-27] MEDS ORDERED: ALBUTEROL HFA 8 GM INHALER INH PRN (06:25)
[2024-12-27] MEDS ORDERED: FLUTICASONE PROPIONATE NA SPR 16 GM BTL NAE PRN (06:25)
[2024-12-27] MEDS ORDERED: NON-FORMULARY MEDICATION (Aspirin-Acetaminophen-Caffeine [Excedrin Extra Strength] 250-250 PO PRN (06:25)
[2024-12-27] MEDS ORDERED: ACETAMINOPHEN 325 MG TAB PO PRN (06:25)
[2024-12-27] MEDS: LEVOTHYROXINE SODIUM 50 MCG TABLET PO SCH (06:45)
[2024-12-27] MEDS: ATORVASTATIN 40 MG TAB PO SCH (07:33)
[2024-12-27] MEDS: ADVANCED PROBIOTIC 625 MG CAPSULE PO SCH (07:33)
[2024-12-27] MEDS: CEROVITE ADV FORMULA TAB PO SCH (07:34)
[2024-12-27] MEDS: VENLAFAXINE HCL XR 150 MG CAPXR PO SCH (07:34)
[2024-12-27] MEDS: APIXABAN 5 MG TABLET PO SCH (07:34)
[2024-12-27] MEDS: MIDODRINE HCL 2.5 MG TAB PO SCH (07:57)
[2024-12-27 08:01] LABS: Appearance Urine Clear (Clear); Bacteria Urine Automated 2+ (None Seen); Epithelial Cell Urine Auto 0-2 /hpf (0-2); Glucose Urine UA Negative (Negative)
[2024-12-27 08:37] VITALS: RESP 18
[2024-12-27] MEDS: NITROFURANTOIN MONOHYDRATE 100 MG CAP PO SCH (09:26)
[2024-12-27 11:17] VITALS: BP 139/57; PULSE 77; TEMP 97.7; O2SAT 95
--- NOTE | 2024-12-27 11:34 | Discharge Summary ---
Discharge Summary Date of Service December 27, 2024 Principal Dx & Hospital Course #1 = Principal Diagnosis (1) Adverse effect of drug in therapeutic use: (2) Nausea and vomiting: (3) E. coli UTI: Plan in summary this is a 79-year-old female who was admitted for observation in the setting of an adverse drug effect, prescribed cefpodoxime for an E. coli UTI; at this time they are medically stable, without significant electrolyte complications or renal dysfunction consequential of their vomiting. It was discussed with the patient in detail that antibiotics can often have these adverse effects, and they are not consistent with an allergy. They were encouraged to continue with their alternative medication course which was prescribed and detailed below and when taking their antibiotic to have a larger volume snack or meal while taking it to reduce the likelihood of adverse effects. #Nausea and vomiting consequential of therapeutic antibiotic treatment // acute bacterial cystitis secondary to E. coli Without significant electrolyte abnormalities at the time of admission, noted to have leukocytosis with white blood cell count of 13.73 though this is likely reactive in the setting of their emesis rather than evidence of a worsening infection given the absence of progressive symptomatology; they were without any significant electrolyte abnormalities on their presenting basic metabolic panel; noted to have an elevated troponin of 71.9 though this is decreasing from the previous hospitalization which was complicated by a type II myocardial infarction Start nitrofurantoin 100 mg twice daily for 5 days for complete course based on sensitivity data Notes For Next Care Provider Patient identified high risk for 30- day readmission. Our hospitalist team would be glad to discuss any details of the hospital stay with you, please reach out by [place] [facility] with a good call back number and we will return your call. Medication Changes From Visit Stop cefpodoxime Start nitrofurantoin 100 mg p.o. twice daily Admission HPI Per Admitting Provider The patient is a 79-year-old female with past medical history including hypertrophic cardiomyopathy, left ventricular outflow tract obstruction, mitral regurgitation, AAA, moderate aortic stenosis, GERD, implantable loop recorder, history of TIA, frontotemporal dementia, COPD, executive function deficit, peripheral neuropathy, balance disorder, SNHL, chronic reflux esophagitis, esophageal dysphagia, generalized anxiety disorder, depression, and history of pulmonary embolism for which she is on Eliquis. She was most recently mated to [facility] from 12/24-12/25/2024, where she was diagnosed with an E. coli UTI that was treated with 1 day of ceftriaxone IV, and then discharged on 2 days of cefuroxime. She was also diagnosed with an NSTEMI, which did not require any intervention other than medical management. She developed significant nausea and vomiting upon taking cefuroxime on 12/26, and due to its persistence, presented to the ED for assessment. In the emergency department she was given Zofran IV, then a dose of Reglan IV, and then Zofran IV again. Patient had a large bowel movement at that point, and since that time has had frequent loose stools. She is referred for evaluation for admission. Discharge Exam General: Adult female in no acute distress Vital Signs: Reviewed HEENT: Normocephalic, atraumatic; pupils equally reactive to light, extraocular motions intact; moist mucous membranes Neck: No palpable lymphadenopathy Pulmonary: symmetric chest wall excursion; CTAB Cardiovascular: Regular rate and rhythm with no murmurs, rubs, or gallops; S1 and S2 normal; bilateral radial and posterior tibial pulses 2+; no notable lower extremity edema Gastrointestinal: Soft, nondistended; normal frequency and pitch of bowel sounds throughout; no palpable masses or organomegaly Musculoskeletal: ambulates without difficulty around the room Neurologic: CN II-XII grossly intact; no discernible focal weakness nor paresthesias Discharge Plan Discharge Items Patient Disposition: Home - Self-Care Reason For Visit: E. COLI, UTI, NAUSEA AND VOMITING, NSTEMI Discharge Diagnosis: Nausea and vomiting secondary to iatrogenic effect Condition on Discharge: Good Activity: Resume your previous activity Non-emergency contact: Primary Care Provider Call non-emergency contact if: you have any medication questions Follow-up/Referrals: Pravin Drew MD [Primary Care Provider] - 01/07/25 3:00 pm (Primary care hospital follow up scheduled on 01/07/25 at 3:00 with Trupti Sheridan PA-C) Diet: Heart Healthy Fluids: 1800ml (7 cups) Addtl Attending Provider Instructions: Be sure to consume a moderate sized snack or meal with your antibiotic to reduce adverse side effects, including nausea. Pending Studies at Discharge: No Stand-Alone Forms: My [facility] [employer] Medications and DC Order Prescriptions: New nitrofurantoin monohyd/m-cryst 100 mg Capsule 100 mg PO BID 5 Days Qty: 10 0RF Continued Probiotic 5 billion cell Capsule, Sprinkle 1 cap PO QAM Qty: 0 venlafaxine 75 mg capsule,extended release 24hr 75 mg PO HS Qty: 90 3RF midodrine 2.5 mg tablet 2.5 mg PO BID Qty: 180 3RF levothyroxine [Synthroid] 50 mcg tablet 50 mcg PO QAM Qty: 90 3RF brexpiprazole 1 mg tablet 1 mg PO DAILY bupropion HCl 300 mg tablet extended release 24 hr 300 mg PO QAM topiramate 50 mg capsule,extended release 24hr 50 mg PO DAILY alprazolam 1 mg tablet 1 mg PO HS PRN (Reason: anxiety) atorvastatin 80 mg tablet 80 mg PO QAM Qty: 90 3RF Eliquis 5 mg tablet 5 mg PO BID Qty: 180 3RF fluticasone propionate [Flonase Allergy Relief] 50 mcg/actuation spray,suspension 2 spray SANTY DAILY PRN (Reason: Nasal Congestion) Qty: 16 0RF biotin 5,000 mcg tablet,chewable 5,000 mcg PO DAILY Probiotic 3 billion cell capsule 3,000 mmu cells PO DAILY Rx Instructions: administer with a meal venlafaxine 150 mg capsule,extended release 24hr 150 mg PO QAM Qty: 90 3RF Excedrin Extra Strength 250-250-65 mg Tablet 1 tab PO Q6H PRN (Reason: Pain) multivitamin with minerals Tablet 1 tab PO DAILY albuterol sulfate 90 mcg/actuation HFA aerosol inhaler 1 - 2 puff INH .Q4-6HR PRN (Reason: SOB) Discontinued cefuroxime axetil 500 mg tablet 500 mg PO Q12H 2 Days Qty: 4 0RF Discharge Orders: Discharge Order (Routine); Ordered 12/27/24 Ordered By: Chris Hernandez/Other Patient Handouts: Loperamide Oral Tablet, Treating Diarrhea Admission Data Admit Date/Time: 12/27/24 04:41 Attending Provider: Larry Cueto Admit Provider: Larry Cueto Primary Care Provider: Pravin Drew Other Providers: Larry Cueto Other Interventions: Discharge Summary Assessment (RN) Last Done: 12/27/24 09:40 Hospital Stay Data Consultations 12/27/24 03:24 ED Decision to Admit Stat Pending Results Patient Have Any Pending Studies at Discharge: No Discharge Instructions Given to Patient (Per Discharging Provider) Be sure to consume a moderate sized snack or meal with your antibiotic to reduce adverse side effects, including nausea. Total Time Total Time Spent Total Time Spent (In Minutes): 45 Coding Level of Care Code 51746 INP/OBS DISCH >30 MIN Diagnoses Adverse effect of drug in therapeutic use T50.905A Nausea and vomiting R11.2 E. coli UTI N39.0; B96.20
--- NOTE | 2024-12-27 12:13 | Electrocardiogram Report ---
Test Reason : Blood Pressure : */* mmHG Vent. Rate : 83 BPM Atrial Rate : 83 BPM P-R Int : 132 ms QRS Dur : 90 ms QT Int : 420 ms P-R-T Axes : 69 31 129 degrees QTcB Int : 493 ms Sinus rhythm with PACs Left ventricular hypertrophy with repolarization abnormality Abnormal ECG When compared with ECG of 25-Dec-2024 05:16, T wave inversion less evident in Anterolateral leads Confirmed by Monroe Romero ([id number]) on 12/27/2024 12:13:08 PM Referred By: REFERRED SELF Confirmed By: Monroe Romero
[2024-12-27] MEDS ORDERED: VENLAFAXINE HCL XR 75 MG CAPXR PO SCH (21:00)
[2024-12-28] MEDS ORDERED: cefTRIAXone SODIUM 2,000 MG/50 ML BAG IV SCH (04:00)
== END 2024-12-27 12:59 | disposition home or self-care (01) ==
LOC: ED 00:04 → INTOOBSV 04:41 → SUATTDRO 04:41 → EDINP 04:41 → 2S 05:18